=== PATIENT | male | born 1950 | race Two or more races ===

== ENCOUNTER 2024-05-27 09:12 | Outpatient (CLI) | payer MEDICARE, MEDICAID, SELFPAY ==
--- NOTE | ~2024-05-27 | MR_ITS ---
EXAMINATION: MR brain/brain stem wo con DATE: 05/27/2024 10:18 INDICATION: Cerebral infarction. TECHNIQUE: Magnetic resonance imaging (MRI) of the brain and brainstem was performed without intraven ous contrast. COMPARISON: None. FINDINGS: There are scattered areas of nonspecific increased T2-weighted signal intensity in the cere bral white matter, which is within normal limits for the patient's age. There is an old infarct invol ving the left frontal lobe and left insula. There is a 2.6 x 2.4 cm extra-axial mass at the right gaston e of the falx adjacent to the right parietal lobe, consistent with a meningioma. There is no acute is chemic infarct or intracranial hemorrhage. The ventricles are normal in size. The orbits are normal. There is mucosal thickening in the paranasal sinuses. The mastoid air cells are normal. IMPRESSION: 1. 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 2. 2.6 cm right parafalcine mass, consistent with a meningioma. Reviewed, dictated and finalized at location A. 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
--- OUTSIDE RECORDS SUMMARY | 2024-06-03 21:59 | XMS_ITS | Continuity of Care Document ---
Author Organization [place] - [facility], [facility] Internal Med [address] Address [address] [place] [address] Care Team Providers Care Branch Operations Coordinator Name Role Phone TARA OSBORN Finance Mgr GUANAKITO MACKENZIE Primary Care Provider ELENI SQUIRES Physical Design Engineer Assessment No assessment recorded. Plan of Treatment Reminders Order Date Submit Date Provider Last Modified By Organization Details Last Modified Time Details Appointments Any 15 2024 09:30A M Guanakito renteria MD Not available Not available Not available Lab unlisted lab - metanephr jelena frx plasma [address] (Lab), [address] [place], [address], 04/08/2024 12:47:19 metanephr jelena, fractiona autumn, quantitat redd, 24-hour urine [email or web address] (Lab), [address] [place], [address], 04/15/2024 16:04:00 Referral cardiolog ist referral 2023 024 [email or web address] Edwin Garcia MD, [address] [facility], [address], [place], [address], 04/12/2024 11:57:15 nephrolog ist referral - Please call patient to schedule. 11/2023 HUBER Davis MD (Nephrology, [address], [address], [place], [address], 04/22/2024 13:45:28 Procedures None recorded. Surgeries None recorded. Imaging MRI, brain, w/o contrast - Please call patient to schedule. [address], [address], [place], [address], 05/17/2024 09:13:24 Medication Orders None recorded. Patient TargetsNo targets recorded. Patient InstructionsNo instructions recorded. Reason for Referral Physical Design Engineer Referral for Es sential hypertension Referring Physician: Guanakito Mackenzie Internal Medicine, Encounter Date: 04/08/2024 Finishing Machine Operator Referral for Ph eochromocytoma Please call patient to schedule. Referring Physician: Guanakito Mackenzie Internal Medicine, Encounter Date: 04/08/2024 Results Created Date Observation Date Name Description Value Unit Range Abnormal Flag Note LastModifiedBy Organization Detail LastModifiedTime 05/27/20 24 05/27/2024 MRI, brain , w/o contr ast No observ ation record ed. [place] [id number] [facility] [address], [place], [address], 05/27/2024 11:49:38 Result Notes None recorded. 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 Active 2022 Not Available [facility] 3 13:39:01 Cerebrovas cular accident 351618422 Active 2022 Not Available [facility] 3 13:39:01 Visual impairment 021007277 Active 2022 Not Available [facility] 3 13:39:02 Total bilirubin above reference range 8174852639901 08 Active 2022 Not Available [facility] 3 13:39:01 Toothache 39675324 Active 2023 Guanakito lee MD [address], [address], [place], [address] , [facility] 4 11:22:28 Dizziness 138942131 Active 2023 SENTHIL Shanks null, [facility] 4 11:23:15 Acute urinary tract infection 556521514 Active 2023 Estefanía Morales MA null, [facility] 4 14:15:55 Chronic depression 987266939 Active 2023 Guanakito lee MD [address], [address], [place], [address] , [facility] 4 10:58:52 Essential hypertensi on 84923526 Active 2023 Guanakito lee MD [address], [place], [address] , [facility] 4 12:32:38 Pheochromo cytoma 316599061 Active 2023 Guanakito lee MD [address], [address], [place], [address] , [facility] 4 12:34:21 Problem Notes None recorded. Procedures Surgical History Date Name Laterality Status Provider Name and Address Organization Details Recorded Time Medicare Wellness CPT Code, subsequent completed Sameer Camacho LPN [facility] 11/07/2023 09:00:46 Advanced Care Planning completed Sameer Camacho LPN [facility] 11/11/2023 11:00:10 open heart surgery completed Not Available [facility] 07/31/2022 23:57:35 Imaging Results None recorded. Procedure Notes None recorded. Medical Equipment None Reported. Allergies No known drug allergies Medications Name Sig Start Date Stop Date Status Note LastModified by Organization Details LastModified Time atorvastatin 40 mg tablet TAKE 1 TABLET BY MOUTH EVERY DAY 2023 active Not Available Not Available Not Avai lable atorvastatin 80 mg tablet Take 1 tablet every day by oral route. 11/22 completed Not Available Not Available Not Available citalopram 10 mg tablet TAKE 1 TABLET BY MOUTH EVERY DAY active Not Available Not Available No t Available ciprofloxaci n 500 mg tablet TAKE 1 TABLET BY MOUTH EVERY 12 HOURS FOR 7 DAYS 03/09 completed Not Available Not Available Not Available ergocalcifer ol (vitamin D2) 1,250 mcg (50,000 unit) capsule TAKE 1 CAPSULE BY MOUTH WEEKLY FOR 8 WEEKS 12/10 completed Not Available Not Available Not Available amoxicillin 875 mg-potassium clavulanate 125 mg tablet TAKE 1 TABLET BY MOUTH EVERY 12 HOURS FOR 7 DAYS 11/10 completed Not Available Not Available Not Available cholecalcife rol (vitamin D3) 1,250 mcg (50,000 unit) capsule TAKE 1 CAPSULE BY MOUTH ONE TIME PER WEEK 2023 active Not Available Not Available Not Avai lable aspirin 325 mg capsule Take by oral route. 2020 active Not Available Not Available Not Avai lable Vitals Date Recorded Body height Body mass index (BMI) Body weight Heart rate Respiratory rate Oxygen saturation Oxygen saturation in Arterial blood by Pulse oximetry Systolic blood pressure Diastolic blood pressure Provider Name and Address Organization Details Last Updated DateTime 4 182.88 cm 29.8 kg/m2 44809.3 2 g 54 /min 16 /min 97 % 97 % 100 mm[Hg] 62 mm[Hg] Sameer Camacho LPN [place] - [facility] 4 12:22:42 Social History Question Answer Notes LastModified by Organization Details LastModified Time Tobacco Smoking Status Never Smoker Not Available [facility] 07/31/2022 23:57:12 Do You Have An Advance Directive? No MIGRATION.030 [id number] Information not available 07/31/2022 What Is Your Level Of Alcohol Consumption? None MIGRATION.030 472265 Information not available 07/31/2022 Do You Wear A Helmet When Biking? No Doews Not Bike Information not available 11/11/2023 Are You Blind Or Do You Have Difficulty Seeing? No MIGRATION.030 720141 Information not available 07/31/2022 What Is Your Level Of Caffeine Consumption? None MIGRATION.030 315192 Information not available 07/31/2022 In The 14 Days Before Symptom Onset, Have You Had Close Contact With A Laboratory-confi rmed COVID-19 While That Case Was Ill? No MIGRATION.030 909683 Information not available 07/31/2022 In The 14 Days Before Symptom Onset, Have You Had Close Contact With A Person Who Is Under Investigation For COVID-19 While That Person Was Ill? No MIGRATION.030 342292 Information not available 07/31/2022 Are You Currently Employed? No [email or web address] Information not available 11/11/2023 Are You Deaf Or Do You Have Serious Difficulty Hearing? No MIGRATION.030 524019 Information not available 07/31/2022 What Type Of Diet Are You Following? REGULAR MIGRATION.030 254593 Information not available 07/31/2022 What Is The Highest Grade Or Level Of School You Have Completed Or The Highest Degree You Have Received? PW85495-5 MIGRATION.300026 Information not available 07/31/2022 Have There Been Any Changes To Your Family Or Social Situation? No MIGRATION.030 015683 Information not available 07/31/2022 What Is The Fluoride Status Of Your Home? Unknown MIGRATION.030 666249 Information not available 07/31/2022 Are There Any Guns Present In Your Home? Yes MIGRATION.030 784421 Information not available 07/31/2022 Do You Use Insect Repellent Routinely? No MIGRATION.030 516922 Information not available 07/31/2022 Where Do You Live? SingleLevelHouse MIGRATION.030 551326 Information not available 07/31/2022 Presence Of Domestic Violence No [email or web address] Information not available 11/11/2023 Guns Present In The Home? No [email or web address] Information not available 11/11/2023 Are You Able To Care For Yourself? Yes [email or web address] Information not available 11/11/2023 Are You Blind Or Do Yo Have Difficulty Seeing? No [email or web address] Information not available 11/11/2023 Are You Deaf Or Do You Have Serious Difficulty Hearing? No [email or web address] Information not available 11/11/2023 General Stress Level? Moderate [email or web address] Information not available 11/11/2023 Live Alone Of With Others? With Others [email or web address] Information not available 11/11/2023 Do You Have A Medical Power Of Rehabilitator? No MIGRATION.0301 [id number] Information not available 07/31/2022 What Was The Date Of Your Most Recent Tobacco Screening? 03/09/2024 [email or web address] Information not available 03/09/2024 Do You Have Any Pets? Yes Cat, Dog Outside Information not available 11/11/2023 What Is Your Relationship Status? MIGRATION.0301 562101 Information not available 07/31/2022 Do You Use Your Seat Belt Or Car Seat Routinely? Yes MIGRATION.0301 803953 Information not available 07/31/2022 Do You Have Smoke And Carbon Monoxide Detectors In Your Home? Yes MIGRATION.0301 427140 Information not available 07/31/2022 Are You Passively Exposed To Smoke? No MIGRATION.0301 721260 Information not available 07/31/2022 Are There Any Smokers In Your House? No MIGRATION.0301 777794 Information not available 07/31/2022 What Types Of Sporting Activities Do You Participate In? None [email or web address] Information not available 11/11/2023 Do You Feel Stressed (tense, Restless, Nervous, Or Anxious, Or Unable To Sleep At Night)? [id number] [email or web address] Information not available 11/11/2023 Do You Use Any Illicit Or Recreational Drugs? No MIGRATION.0301 708221 Information not available 07/31/2022 Do You Use Sunscreen Routinely? No MIGRATION.0301 192653 Information not available 07/31/2022 Has Tobacco Cessation Counseling Been Provided? No N/a MIGRATION.0301 241754 Information not available 07/31/2022 Have You Recently Traveled Abroad? No MIGRATION.0301 827102 Information not available 07/31/2022 Do You Have Any Dietary Restrictions? No MIGRATION.0301 200831 Information not available 07/31/2022 Do You Or Have You Ever Used Any Other Forms Of Tobacco Or Nicotine? No MIGRATION.0301 425188 Information not available 07/31/2022 Sex: Male Functional Status Question Answer Note LastModified by Organizat [facility] Details LastModified Time Do you have difficulty walking or climbing stairs? No MIGRATION.4972240 026 Information not available 07/31/2022 Do you have transportation difficulties? No MIGRATION.5606926 026 Information not available 07/31/2022 Are you able to walk? YESWOREST MIGRATION.1918351 026 Information not available 07/31/2022 Do you have difficulty doing errands alone? No MIGRATION.7120376 026 Information not available 07/31/2022 Are you able to care for yourself? Yes MIGRATION.2070039 026 Information not available 07/31/2022 Do you have difficulty dressing or bathing? No MIGRATION.5786751 026 Information not available 07/31/2022 What is your exercise level? None MIGRATION.5022366 026 Information not available 07/31/2022 Mental Status Question Answer Note LastModified by Organizat [employer] Details LastModified Time Do you have difficulty concentrating, remembering or making decisions? No MIGRATION.[id number] 6 Information not available 07/31/2022 Family History Relationship Description Onset Age of this Age Resolved Age Notes LastModified by Organization Details LastModified Time Father No current problems or disability MIGRATION.773 [id number] Not available 07/31/2022 23:57:35 Mother No current problems or disability MIGRATION.070 0809189 Not available 07/31/2022 23:57:36 Medical History Condition Response NERVE DISEASE N BLINDNESS N RHEUMATIC FEVER N KIDNEY STONES N BLADDER PROBLEMS N MRSA N OTHER # 1 N POLIO N LUNG DISEASE/DISORDER N HISTORY OF DRUG ABUSE N RADIATION / CHEMOTHERAPY N COPD N Other # 2 N BLOOD DISEASES N EAR OR HEARING PROBLEMS N MUMPS N SHINGLES N DEPRESSION (INCLUDING POST ) N BOWEL PROBLEMS N STROKE/TIA Y ULCERS N BENIGN PROSTATIC HYPERPLASIA N MEASLES N HYPOTENSION N MYOCARDIAL INFARCTION N OBESITY N GERD/NAUSEA N ANEURYSM N URINARY/BLADDER/KIDNEY PROBLEMS N CORONARY ARTERY DISEASE (CAD) N ADDICTION CONCERNS N Impotence N ENDOMETRIOSIS N USE OF BLOOD THINNERS N SKIN PROBLEMS N GASTROINTESTINAL DISORDER N PERIPHERAL VASCULAR DISEASE N MUSCLE,JOINT OR BONE PROBLEMS N GASTROINTESTINAL BLEEDING N BLOOD CLOTS N ASTHMA N CATARACTS N ERECTILE DYSFUNCTION N VARICOSITIES N GI PROBLEMS N Low Testosterone N INFERTILITY N AIDS/HIV N CHEMOTHERAPY / RADIATION N LIVER DISEASE N MALE HYPOGONADISM N HYPERTENSION N Deficiency N TOURETTE'S N ANXIETY DISORDER N BLOOD TRANSFUSION N ANEMIA/BLOOD DISORDER N CHRONIC EAR INFECTIONS N BRONCHITIS N TUBERCULOSIS N GLAUCOMA N FOOT PROBLEM N DIVERTICULITIS N SLEEP APNEA N CHICKENPOX N INFECTIOUS DISEASE N PROSTATE N HEART ARRHYTHMIA N INSOMNIA N HIGH CHOLESTEROL / HYPERLIPIDEMIA N HYPERTHYROIDISM N EYE PROBLEMS N EDEMA N CHRONIC PAIN SYNDROME N HYPOTHYROIDISM N CONSTIPATION N CAROTID BLOCKAGE N BACK / NECK PROBLEMS N HAVE YOU BEEN HOSPITALIZED OR SEEN IN [facility] IN THE PAST YEAR ? N ATHEROSCLEROSIS N BREAST PROBLEMS N DIALYSIS N ECZEMA N OSTEOPOROSIS N ARTHRITIS N APPENDICITIS N DIABETES, TYPE N BAD TEETH N ENT N HEARTBURN / REFLUX N AUTISM SPECTRUM DISORDER (ASD) N HEPATITIS / LIVER DISEASE N GOUT N SLEEP DISORDER N ALZHEIMER'S DISEASE N Brain Problems N HERPES N DEMENTIA N SEIZURES/EPILEPSY N HEADACHES/MIGRAINES N VASCULAR DISEASE N PACEMAKER N Blood Disorder N DIZZINESS N KIDNEY DISEASE N HEART DISEASE/HEART PROBLEMS Y MULTIPLE SCLEROSIS N CARDIAC ARRHYTHMIA N CANCER: SPECIFY N Gall Stones N ATRIAL FIBRILLATION N PULMONARY EMBOLISM N AUTOIMMUNE DISEASE N Immunizations Vaccine Type Date Status Note Provider Nam e and Address Organization Details Recorded Time Influenza, high-dose, quadrivalent, PF 03/21/2022 completed Not Available [facility] 00:[facility]:06 Influenza, high-dose, quadrivalent, PF 03/18/2023 completed SENTHIL Negron [facility] 05/13/2023 10:34:51 Influenza, high-dose, trivalent, PF 03/09/2024 completed SENTHIL Negron [facility] 03/09/2024 10:53:30 Past Encounters Encounter ID Performer Location Encounter Start Date Encounter Closed Date Diagnosis/Indication Diagnosis SNOMED-CT Code Diagnosis ICD10 Code [id number] Guanakito lee MD [facility] [address] [facility], [address] [place] [address] 03/09/2024 10:13:25 03/09/2024 10:58:03 Hyperlipidemia 52769480 E78.5 Screening - NAD 10080177 3 Z13.9 Vitamin D deficiency 347 10828 E55.9 Vertigo 547066835 R42 Dyspnea on exertion 6084 5006 R06.09 Intracrani al meningioma 378923302 D32.0 Cerebrovas cular accident 584018385 I63.9 History of repair of mitral valve 213322484 Z98.890 Visual impairment 380488 003 H54.7 Total bili schmitz above reference range 1649647665 52555 R17 Administra tion of influenza vaccine 80604694 Z23 Chronic depression 43601 0009 F32.A [id number] Guanakito lee MD [facility] [address] [facility], [facility] [address] [place] [address] 04/08/2024 12:19:23 04/08/2024 12:50:53 Essential hypertension 64580982 I10 Vertigo 243658452 R42 Cerebrovas cular accident 472557116 I63.9 Pheochromocytoma 5258413 09 D35.00 Health Concerns Section Related Observation LastModified by Organization Detai ls LastModified Time None Recorded Concern Status LastModified by Organization Details LastModified Time None Recorded Payers Encounter Date Sequence Insurance Name Policy Number Policy Hinton Covered Member ID Hinton Member ID Guarantor Name 04/08/2024 1 [facility] (MEDICARE REPLACEMENT/A DVANTAGE - PPO) [id number] Nirav Kearns [id number] Nirav Kearns Notes Date Note Type Note Provider Name and Address Organization Details Recorded Time 04/08/2024 text/html OV 03/13/2021:He re to establish [facility] Hx:HLDCVAMVRMening iomaReviewed social family and surgical historyHe is here to discuss aboveHe does need to get labsHe feels well otherwise 06/21/2021:Here for his routine aptHe is doing well OV 11/22/2021:Here for his routine aptHe is doing wellHe did do the labs OV 01/31/2022:Here for his f/u apt with his , he is doing well, he did the labs on 01/25/2022 OV 07/30/2022:Here for his f/u apt, he is doing well, here with his , no new labs, here for MWV also OV 12/10/2022: Here for his f/u apt, he states that he is doing very well today, he has done his labs also, he states that he is doing very well, is very active and 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 OV 05/13/2023: Here for his routine apt, he is doing well, he did do the labs OV 11/11/2023: Here for his f/u apt, he is doing well, here for his MWV, he did do the labs on 11/07/2023 OV 03/09/2024: Here for his f/u apt, does very well, here with his and daughter, he did do the labs, as per daughter he does need to see his neurologist and also wants him to restart the citalopram OV 04/08/2024: Here with his daughter for his BP check, as per the daughter her father has been more dizzy, she is worrying about his 'adrenals' and if he has 'pheochromocytoma' as she is a nurse and has read about itHe has denied any headaches, but has complained to his daughter that he can get dizzy and get palpitations, he denies any excessive sweating, no chest pain or SOB, no CHNA Guanakito Mackenzie MD [address] [place] [address], [address] [address], [place], [address], [facility] 04/14/2024 15:53:55
--- OUTSIDE RECORDS SUMMARY | 2024-06-03 21:59 | XMS_ITS | Continuity of Care Document ---
Author Organization [place] - [facility], [facility]_G Internal Med [address] [facility] [place] [address] Care Team Providers Care Member Of The Legislative Council Name Role Phone TARA OSBORN Cable Driller GUANAKITO MACKENZIE Primary Care Provider FRANCISCO PIZARRO Build Manager Assessment Encounter Date Assessment Date Assessment LastModified by Organization Details LastModified Time 03/09/2024 03/09/2024 01/25/2022: PSA 0.52 TSH/FT4/LIPID S/CBC: WNL VIT D 41.8 CMP: Bili T 1.40 11/25/2022: Labs stable 05/09/2023: PSA 0.55 VIT D 26.0 11/07/2023: PSA 0.57 BUN 21 03/08/2024: Stable 45 minutes spent with him his and his daughter, labs reviewed, referral placed, discussed his depression Not available 03/09/2024 11:09:03 Plan of Treatment Reminders Order Date Submit Date Provider Last Modified By Organization Details Last Modified Time Details Appointments Any 15 2024 09:30A M Guanakito renteria MD Not available Not available Not available Lab lipid panel, serum 2023 024 [facility] (Lab), [address] [place], [address], 03/09/2024 17:08:36 CBC w/ auto diff 2023 024 [facility] (Lab), [address] [place], [address], 03/09/2024 17:08:38 CMP, serum or plasma 2023 [facility] (Lab), [address] [place], [address], 03/09/2024 17:08:37 TSH, serum or plasma 2023 [facility] (Lab), [address] [place], [address], 03/09/2024 17:08:39 vitamin D, 25-hydrox y, total, serum 2023 [facility] (Lab), [address] [place], [address], 03/09/2024 13:07:07 Referral cardiolog ist referral 2023 [email or web address] [place], [address] Michelle , [address], [address], 03/10/2024 08:40:[address] referral - Please call patient to schedule. 2023 [email or web address] [facility] - Neurology, [facility] [place], [address], 05/10/2024 12:23:19 Procedures None recorded. Surgeries None recorded. Imaging None recorded. Medication Orders citalopra m 10 mg tablet 2023 [facility] [address] [facility] [address] [place], [address], 03/09/2024 11:00:44 Patient TargetsNo targets recorded. Patient InstructionsNo instructions recorded. Reason for Referral Build Manager Referral for Hi story of repair of mitral valve Referring Physician: Guanakito Mackenzie, Internal Medicine, Encounter Date: 03/09/2024 Neurologist Referral for Cer ebrovascular accident Please call patient to schedule. Referring Physician: Guanakito Mackenzie, Internal Medicine, Encounter Date: 03/09/2024 Results Created Date Observation Date Name Description Value Unit Range Abnormal Flag Note LastModifiedBy Organization Detail LastModifiedTime 05/27/20 24 05/27/2024 MRI, brain , w/o contr ast No observ ation record ed. [facility] [address] [facility] [address], [place], [address], 05/27/2024 11:49:38 Result Notes None recorded. Problems Name Problem SNOMED Code Status Onset Date Resolution Date Notes Provider Name and Address Organization Details Recorded Time Hyperlipid emia 86803973 Active 2021 Not Available [facility] 3 13:39:02 Dyspnea on exertion 65575204 Active 2021 Not Available [facility] 3 13:39:02 Vitamin D deficiency 23858989 Active 2022 Not Available [facility] 3 13:39:01 Vertigo 174663637 Active 2022 Not Available 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 3 13:39:01 Cerebrovas cular accident 871077917 Active 2022 Not Available [facility] 3 13:39:01 Visual impairment 894331163 Active 2022 Not Available [facility] 3 13:39:02 Total bilirubin above reference range 4323070878780 08 Active 2022 Not Available [facility] 3 13:39:01 Toothache 06969732 Active 2023 Guanakito lee MD [address] [place] [address], [facility] [address], [place], [address] , [facility] [employer] 4 11:22:28 Dizziness 244227576 Active 2023 SENTHIL Shanks [facility], [facility] [employer] 4 11:23:15 Acute urinary tract infection 148097580 Active 2023 Estefanía Morales MA null, [facility] [employer] [facility] 4 14:15:55 Chronic depression 404473838 Active 2023 Guanakito lee MD [address] [facility], [address] [facility], [place], [address] , [facility] [employer] [facility] 4 10:58:52 Essential hypertensi on 53123135 Active 2023 Guanakito lee MD [address] [facility], [address], [place], [address] , [facility] [employer] [facility] [employer] [facility] 4 12:32:38 Pheochromo cytoma 344176420 Active 2023 Guanakito lee MD [address] [facility], [place] [address], [place], [address] , [facility] [employer] [facility] [employer] [facility] 4 12:34:21 Problem Notes None recorded. Procedures Surgical History Date Name Laterality Status Provider Name and Address Organization Details Recorded Time 4 Medicare Wellness CPT Code, subsequent completed Sameer Camacho LPN [facility] [employer] [facility] 11/07/2023 09:00:46 4 Advanced Care Planning completed Sameer Camacho LPN [facility] [employer] [facility] 11/11/2023 11:00:10 open heart surgery completed Not Available [facility] 07/31/2022 23:57:35 Imaging Results None recorded. Procedure [...] height Body mass index (BMI) Body weight Body temperature Heart rate Systolic blood pressure Diastolic blood pressure Provider Name and Address Organization Details Last Updated DateTime 4 182.88 cm 30.8 kg/m2 985144. 47 g 97.4 [degF] 60 /min 106 mm[Hg] 70 mm[Hg] SENTHIL Negron [place] [employer] 4 10:26:31 Social History Question Answer Notes LastModified by Organization Details LastModified Time Tobacco Smoking Status Never Smoker Not Available [facility] 07/31/2022 23:57:12 Do You Have An Advance Directive? No MIGRATION.0301 [id number] Information not available 07/31/2022 What Is Your Level Of Alcohol Consumption? None MIGRATION.0301 645103 Information not available 07/31/2022 Do You Wear A Helmet When Biking? No Doews Not Bike [email or web address] Information not available 11/11/2023 Are You Blind Or Do You Have Difficulty Seeing? No MIGRATION.0301 [id number] Information not available 07/31/2022 What Is Your Level Of Caffeine Consumption? None MIGRATION.0301 482486 Information not available 07/31/2022 In The 14 Days Before Symptom Onset, Have You Had Close Contact With A Laboratory-confi rmed COVID-19 While That Case Was Ill? No MIGRATION.0301 249621 Information not available 07/31/2022 In The 14 Days Before Symptom Onset, Have You Had Close Contact With A Person Who Is Under Investigation For COVID-19 While That Person Was Ill? No MIGRATION.030 929856 Information not available 07/31/2022 Are You Currently Employed? No [email or web address] Information not available 11/11/2023 Are You Deaf Or Do You Have Serious Difficulty Hearing? No MIGRATION.030 903179 Information not available 07/31/2022 What Type Of Diet Are You Following? REGULAR MIGRATION.300026 Information not available 07/31/2022 What Is The Highest Grade Or Level Of School You Have Completed Or The Highest Degree You Have Received? [id number] MIGRATION.300026 Information not available 07/31/2022 Have There Been Any Changes To Your Family Or Social Situation? No MIGRATION.030 622619 Information not available 07/31/2022 What Is The Fluoride Status Of Your Home? Unknown MIGRATION.300026 Information not available 07/31/2022 Are There Any Guns Present In Your Home? Yes MIGRATION.300026 Information not available 07/31/2022 Do You Use Insect Repellent Routinely? No MIGRATION.030 010820 Information not available 07/31/2022 Where Do You Live? SingleLevelHouse MIGRATION.300026 Information not available 07/31/2022 Presence Of Domestic Violence No Information not available 11/11/2023 Guns Present In The Home? No [email or web address] Information not available 11/11/2023 Are You Able To Care For Yourself? Yes Information not available 11/11/2023 Are You Blind Or Do Yo Have Difficulty Seeing? No Information not available 11/11/2023 Are You Deaf Or Do You Have Serious Difficulty Hearing? No [email or web address] Information not available 11/11/2023 General Stress Level? Moderate Information not available 11/11/2023 Live Alone Of With Others? With Others Information not available 11/11/2023 Do You Have A Medical Power Of High Density Finishing Operator? No MIGRATION.030 902360 Information not available 07/31/2022 What Was The Date Of Your Most Recent Tobacco Screening? 03/09/2024 [email or web address] Information not available 03/09/2024 Do You Have Any Pets? Yes Cat, Dog Outside [email or web address] Information not available 11/11/2023 What Is Your Relationship Status? MIGRATION.0301 [id number] Information not available 07/31/2022 Do You Use Your Seat Belt Or Car Seat Routinely? Yes MIGRATION.0301 123708 Information not available 07/31/2022 Do You Have Smoke And Carbon Monoxide Detectors In Your Home? Yes MIGRATION.0301 367870 Information not available 07/31/2022 Are You Passively Exposed To Smoke? No MIGRATION.0301 028273 Information not available 07/31/2022 Are There Any Smokers In Your House? No MIGRATION.0301 570024 Information not available 07/31/2022 What Types Of Sporting Activities Do You Participate In? None Information not available 11/11/2023 Do You Feel Stressed (tense, Restless, Nervous, Or Anxious, Or Unable To Sleep At Night)? [id number] [email or web address] Information not available 11/11/2023 Do You Use Any Illicit Or Recreational Drugs? No MIGRATION.0301 826549 Information not available 07/31/2022 Do You Use Sunscreen Routinely? No MIGRATION.0301 596227 Information not available 07/31/2022 Has Tobacco Cessation Counseling Been Provided? No N/a MIGRATION.0301 728207 Information not available 07/31/2022 Have You Recently Traveled Abroad? No MIGRATION.0301 567435 Information not available 07/31/2022 Do You Have Any Dietary Restrictions? No MIGRATION.0301 256540 Information not available 07/31/2022 Do You Or Have You Ever Used Any Other Forms Of Tobacco Or Nicotine? No MIGRATION.0301 842530 Information not available 07/31/2022 Sex: Male Functional Status Question Answer Note LastModified by Organizat ion Details LastModified Time Do you have difficulty walking or climbing stairs? No MIGRATION.5818069 026 Information not available 07/31/2022 Do you have transportation difficulties? No MIGRATION.1190417 026 Information not available 07/31/2022 Are you able to walk? YESWOREST MIGRATION.9252369 026 Information not available 07/31/2022 Do you have difficulty doing errands alone? No MIGRATION.5347210 026 Information not available 07/31/2022 Are you able to care for yourself? Yes MIGRATION.0538112 026 Information not available 07/31/2022 Do you have difficulty dressing or bathing? No MIGRATION.7487896 026 Information not available 07/31/2022 What is your exercise level? None MIGRATION.2812389 026 Information not available 07/31/2022 Mental Status Question Answer Note LastModified by Organizat ion Details LastModified Time Do you have difficulty concentrating, remembering or making decisions? No MIGRATION.836011030 6 Information not available 07/31/2022 Family History Relationship Description Onset Age of this Age Resolved Age Notes LastModified by Organization Details LastModified Time Father No current problems or disability MIGRATION.980 [id number] Not available 07/31/2022 23:57:35 Mother No current problems or disability MIGRATION.988 [id number] Not available 07/31/2022 23:57:36 Medical History Condition Response NERVE DISEASE N BLINDNESS N RHEUMATIC FEVER N KIDNEY STONES N BLADDER PROBLEMS N MRSA N OTHER # 1 N POLIO N LUNG DISEASE/DISORDER N HISTORY OF DRUG ABUSE N COPD N RADIATION / CHEMOTHERAPY N Other # 2 N BLOOD DISEASES N EAR OR HEARING PROBLEMS N MUMPS N SHINGLES N BOWEL PROBLEMS N DEPRESSION (INCLUDING POST ) N STROKE/TIA Y ULCERS N BENIGN PROSTATIC HYPERPLASIA N MEASLES N HYPOTENSION N MYOCARDIAL INFARCTION N OBESITY N GERD/NAUSEA N ANEURYSM N URINARY/BLADDER/KIDNEY PROBLEMS N CORONARY ARTERY DISEASE (CAD) N ADDICTION CONCERNS N ENDOMETRIOSIS N Impotence N USE OF BLOOD THINNERS N SKIN [...] GLAUCOMA N FOOT PROBLEM N DIVERTICULITIS N CHICKENPOX N SLEEP APNEA N INFECTIOUS DISEASE N HEART ARRHYTHMIA N PROSTATE N INSOMNIA N HIGH CHOLESTEROL / HYPERLIPIDEMIA N HYPERTHYROIDISM N EYE PROBLEMS N EDEMA N CHRONIC PAIN SYNDROME N HYPOTHYROIDISM N CAROTID BLOCKAGE N CONSTIPATION N BACK / NECK PROBLEMS N HAVE YOU BEEN HOSPITALIZED OR SEEN IN [facility] IN THE PAST YEAR ? N ATHEROSCLEROSIS N BREAST PROBLEMS N DIALYSIS N ECZEMA N OSTEOPOROSIS N ARTHRITIS N APPENDICITIS N DIABETES, TYPE N BAD TEETH N ENT N HEARTBURN / REFLUX N AUTISM SPECTRUM DISORDER (ASD) N HEPATITIS / LIVER DISEASE N GOUT N SLEEP DISORDER N ALZHEIMER'S DISEASE N Brain Problems N HERPES N DEMENTIA N HEADACHES/MIGRAINES N SEIZURES/EPILEPSY N VASCULAR DISEASE N PACEMAKER N Blood Disorder N DIZZINESS N HEART DISEASE/HEART PROBLEMS Y KIDNEY DISEASE N MULTIPLE SCLEROSIS N CARDIAC ARRHYTHMIA N CANCER: SPECIFY N ATRIAL FIBRILLATION N Gall Stones N PULMONARY EMBOLISM N AUTOIMMUNE DISEASE N Immunizations Vaccine Type Date Status Note Provider Nam e and Address Organization Details Recorded Time Influenza, high-dose, quadrivalent, PF 03/21/2022 completed Not Available [employer] 3 00:00:06 Influenza, high-dose, quadrivalent, PF 03/18/2023 completed SENTHIL Negron, [place] - [facility] [employer] [facility] 05/13/2023 10:34:51 Influenza, high-dose, trivalent, PF 03/09/2024 completed SENTHIL Negron, [facility] [employer] [facility] 03/09/2024 10:53:30 Past Encounters Encounter ID Performer Location Encounter Start Date Encounter Closed Date Diagnosis/Indication Diagnosis SNOMED-CT Code Diagnosis ICD10 Code [id number] Guanakito lee MD [facility] Internal Med [facility] [address] [facility], [facility] [address] [place] [address] 03/09/2024 10:13:25 03/09/2024 10:58:03 Hyperlipidemia 74208769 E78.5 Screening - NAD 52457451 3 Z13.9 Vitamin D deficiency 347 30590 E55.9 Vertigo 726054319 R42 Dyspnea on exertion 6084 5006 R06.09 Intracrani al meningioma 908822385 D32.0 Cerebrovas cular accident 573996098 I63.9 History of repair of mitral valve 378895002 Z98.890 Visual impairment 806032 003 H54.7 Total bili schmitz above reference range 2315908908 21648 R17 Administra tion of influenza vaccine 79509255 Z23 Chronic depression 28904 0009 F32.A Health Concerns Section Related Observation LastModified by Organization Detai ls LastModified Time None Recorded Concern Status LastModified by Organization Details LastModified Time None Recorded Payers Encounter Date Sequence Insurance Name Policy Number Policy [place] Covered Member ID [place] Member ID Guarantor Name 03/09/2024 1 [facility] (MEDICARE REPLACEMENT/A DVANTAGE - PPO) [id number] Nirav Kearns [id number] Nirav Alvaradoev Notes Date Note Type Note Provider Name and Address Organization Details Recorded Time 03/09/2024 text/html OV 03/13/2021:He re to establish carePast Hx:HLDCVAMVRMening St[place]ed social family and surgical historyHe is here [...] also wants him to restart the citalopram Guanakito Mackenzie MD [address] [facility], [address], [place], [address], [place] [facility] [employer] [employer] 03/09/2024 11:10:10
--- OUTSIDE RECORDS SUMMARY | 2024-06-03 21:59 | XMS_ITS | Data Portability ---
Author Organization [place] [facility] [employer] [facility], Main Office Address [address] [place] [address] Care Team Providers [place] Demonstrator Name Role Phone TARA OSBORN [employer] GUANAKITO WARE Primary Care Provider ELENI PIZARRO Agricultural Research Director Assessment Encounter Date Assessment Date Assessment LastModified by Organization Details LastModified Time 12/10/2022 12/10/2022 01/25/2022: PSA 0.52 TSH/FT4/LIPID S/CBC: WNL VIT D 41.8 CMP: Bili T 1.40 11/25/2022: Labs stable Not available 12/09/2022 15:09:07 05/13/2023 05/13/2023 01/25/2022: PSA 0.52 TSH/FT4/LIPID S/CBC: WNL VIT D 41.8 CMP: Bili T 1.40 11/25/2022: Labs stable 05/09/2023: PSA 0.55 VIT D 26.0 Not available 05/13/2023 10:26:40 11/11/2023 11/11/2023 01/25/2022: PSA 0.52 TSH/FT4/LIPID S/CBC: WNL VIT D 41.8 CMP: Bili T 1.40 11/25/2022: Labs stable 05/09/2023: PSA 0.55 VIT D 26.0 11/07/2023: PSA 0.57 BUN 21 Not available 11/11/2023 10:16:07 03/09/2024 03/09/2024 01/25/2022: PSA 0.52 TSH/FT4/LIPID S/CBC: WNL VIT D 41.8 CMP: Bili T 1.40 11/25/2022: Labs stable 05/09/2023: PSA 0.55 VIT D 26.0 11/07/2023: PSA 0.57 BUN 21 03/08/2024: Stable 45 minutes spent with him his and his daughter, labs reviewed, referral placed, discussed his depression [email or web address] Not available 03/09/2024 11:09:03 Plan of Treatment Reminders Order Date Submit Date Provider Last Modified By Organization Details Last Modified Time Details Appointments Any 15 2024 09:30A M Guanakito renteria MD Not available Not available Not available Lab PSA, total, serum or plasma 2022 023 [facility] (Lab), [address] [place], [address], 05/09/2023 12:42:21 vitamin D, 25-hydrox y, total, serum [email or web address] (Lab), [address] [place], [address], 06/11/2023 17:47:15 lipid panel, serum 2022 023 [facility] (Lab), [address] [place], [address], 05/09/2023 11:53:35 CBC w/ auto diff 2022 023 [facility] (Lab), [address] [place], [address], 05/09/2023 11:21:40 CMP, serum or plasma 2022 023 [facility] (Lab), [address] [place], [address], 05/09/2023 11:53:43 TSH, serum or plasma 2022 023 [facility] (Lab), [address] [place], [address], 05/09/2023 12:42:08 vitamin D, 25-hydrox y, total, serum [address] (Lab), [address] [place], [address], 11/12/2023 08:38:17 lipid panel, serum 2022 023 [facility] (Lab), [address] [place], [address], 11/07/2023 10:53:46 CBC w/ auto diff 2022 023 [facility] (Lab), [address] [place], [address], 11/07/2023 10:07:10 CMP, serum or plasma 2022 023 [facility] (Lab), [address] [place], [address], 11/07/2023 10:53:50 TSH, serum or plasma 2022 023 [facility] (Lab), [address] [place], [address], 11/07/2023 11:32:24 vitamin D, 25-hydrox y, total, serum [address] (Lab), [address] [place], [address], 05/10/2024 09:53:36 lipid panel, serum [address] (Lab), [address] [place], [address], 05/10/2024 09:53:36 CBC w/ auto diff [address] (Lab), [address] [place], [address], 05/10/2024 09:53:36 CMP, serum or plasma [address] (Lab), [address] [place], [address], 05/10/2024 09:53:36 TSH, serum or plasma [address] (Lab), [address] [place], [address], 05/10/2024 09:53:36 lipid panel, serum 2023 024 [facility] (Lab), [address] [place], [address], 03/09/2024 17:08:36 CBC w/ auto diff 2023 024 [facility] (Lab), [address] [place], [address], 03/09/2024 17:08:38 CMP, serum or plasma 2023 024 [facility] (Lab), [address] [place], [address], 03/09/2024 17:08:37 TSH, serum or plasma 2023 024 [facility] (Lab), [address] [place], [address], 03/09/2024 17:08:39 vitamin D, 25-hydrox y, total, serum 2023 024 [facility] (Lab), [address] [place], [address], 03/09/2024 13:07:07 unlisted lab - metanephr jelena frx plasma [address] (Lab), [address] [place], [address], 04/08/2024 12:47:19 metanephr jelena, fractiona marcus, quantitat lenore, 24-hour urine 2023 024 [email or web address] [facility] (Lab), [address] [place], [address], 04/15/2024 16:04:00 Referral cardiolog ist referral 2022 023 [email or web address] [place], [address], [address], [place], [address], 01/21/2023 14:18:53 cardiolog ist referral 2022 023 [email or web address] [place], [address], [address], [place], [address], 12/10/2023 08:55:22 cardiolog ist referral 2023 024 [email or web address] [place], [address], [address], [place], [address], 05/10/2024 12:23:08 cardiolog ist referral 2023 024 [place], [address], [address], [place], [address], 03/10/2024 08:40:[address] referral - Please call patient to schedule. 2023 024 [email or web address] [facility] - Neurology, [address] [place] [address], [address], 05/10/2024 12:23:19 cardiolog ist referral 2023 024 [email or web address] Edwin Garcia MD, [address] [facility], [address], [place], [address], 04/12/2024 11:57:15 nephrolog ist referral - Please call patient to schedule. 2023 024 HUBER Davis MD (Nephrology, [address], [address], [place], [address], 04/22/2024 13:45:28 Procedures None recorded. Surgeries None recorded. Imaging MRI, brain, w/o contrast - Please call patient to schedule. 2023 024 [facility], [address], [place], [address], 05/17/2024 09:13:24 Medication Orders cholecalc iferol (vitamin D3) 1,250 mcg (50,000 unit) capsule 2022 023 [facility] [id number] [facility], [address] [place], [address], 05/13/2023 10:35:27 citalopra m 10 mg tablet 2023 024 [facility] [address] [facility], [address] [place], [address], 03/09/2024 11:00:44 Patient TargetsNo targets recorded. Patient Instructions Encounter Date Encounter Id Patient Instructions Last Modified By Organization Details Last Modified Time 11/11/2023 [id number] dementia rating scale-2* [email or web address] 2 Not available 11/11/2023 11:14:00 depression screening* [email or web address] Not available 11/11/2023 11:13:59 alcohol misuse* [email or web address] 2 Not available 11/11/2023 11:13:58 multi-dimensiona l health assessment questionnaire* [email or web address] 2 Not available 11/11/2023 11:14:02 advance directiv es: care instructions [email or web address] Not available 11/11/2023 11:13:56 [place] Advance Directives [email or web address] Not available 11/11/2023 11:13:56 advance care planning: care instructions [email or web address] Not available 11/11/2023 11:13:56 Personalized Hea lth Plan and Screening Recommendations Advance Directives - Do you have one? Advance Directives - Do we have your advance directive on file in your health record? Primary Prevention/Interven tion (prevents or decreases the chance of common diseases from occurring) Smoking Risk: Alcohol Misuse Screening: Weight: Physical activity: Nutrition: Fall Risk (screened today): Vaccines Pneumococcal: Influenza: Chronic Disease Risks Stroke: I have no recommendations Active diagnosis, Continue current treatment plan Heart Attack: I have no recommendations Act lenore diagnosis, Continue current treatment plan Clogging of the Arteries: I have no recommendations Act lenore diagnosis, Continue current treatment plan Diabetes: Secondary Prevention/Interven tion (detects treatable diseases before they may cause symptoms, disability, or ) Prostate Cancer Screening: Colon Cancer Screening: Date Screening Last Performed: Eye Disease Screening: Dementia Risk: Depression Screening: [email or web address] Not available 11/07/2023 09:00:34 Reason for Referral Agricultural Research Director Referral for Hi story of repair of mitral valve Referring Physician: Lee Ann Mai Medicine, Encounter Date: 12/10/2022 Agricultural Research Director Referral for Hi story of repair of mitral valve Referring Physician: Lee Ann Mai, Encounter Date: 05/13/2023 Agricultural Research Director Referral for Hi story of repair of mitral valve Referring Physician: Lee Ann Mai, Encounter Date: 11/11/2023 Agricultural Research Director Referral for Hi story of repair of mitral valve Referring Physician: Lee Ann Mai, Encounter Date: 03/09/2024 Neurologist Referral for Cer ebrovascular accident Please call patient to schedule. 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 Referring Physician: Guanakito Ware, Internal Medicine, Encounter Date: 04/08/2024 Results Created Date Observation Date Name Description Value Unit Range Abnormal Flag Note LastModifiedBy Organization Detail LastModifiedTime 11/26/19 23 11/25/2022 CBC/C OMPLE TE BLD COUNT W/DIF F white blood cells 6.0 x10'3 /uL 4.2-10 .8 Not Available [facility] (Lab) [address] [place], [address], 11/25/2022 08:39:58 11/26/19 23 11/25/2022 CBC/C OMPLE TE BLD COUNT W/DIF F red blood cells 5.01 x10'6 /uL 4.10-5 .80 Not Available [facility] (Lab) [address] [place], [address], 11/25/2022 08:39:58 11/26/19 23 11/25/2022 CBC/C OMPLE TE BLD COUNT W/DIF F hemoglobin 14.6 g/dL 13.2-1 7.0 Not Available [facility] (Lab) [address] [place], [address], 11/25/2022 08:39:58 11/26/19 23 11/25/2022 CBC/C OMPLE TE BLD COUNT W/DIF F hematocrit 45.0 % 39.3-5 0.0 Not Available [facility] (Lab) [address] [place], [address], 11/25/2022 08:39:58 11/26/19 23 11/25/2022 CBC/C OMPLE TE BLD COUNT W/DIF F mean red cell volume 89.8 fL 80.0-9 7.0 Not Available [facility] (Lab) [address] [place], [address], 11/25/2022 08:39:58 11/26/19 23 11/25/2022 CBC/C OMPLE TE BLD COUNT W/DIF F mean red cell hemoglobin 29.1 pg 27.0-3 3.0 Not Available [facility] (Lab) [address] [place], [address], 11/25/2022 08:39:58 11/26/19 23 11/25/2022 CBC/C OMPLE TE BLD COUNT W/DIF F mean RBC HGB concentratio n 32.4 g/dL 31.0-3 6.0 Not Available [facility] (Lab) [address] [place], [address], 11/25/2022 08:39:58 11/26/19 23 11/25/2022 CBC/C OMPLE TE BLD COUNT W/DIF F red cell distribution width 13.0 % 11.8-1 5.5 Not Available [facility] (Lab) [address] [place], [address], 11/25/2022 08:39:58 11/26/19 23 11/25/2022 CBC/C OMPLE TE BLD COUNT W/DIF F platelets 212 x10'3 /uL 150-40 0 Not Available [facility] (Lab) [address] [place], [address], 11/25/2022 08:39:58 11/26/19 23 11/25/2022 CBC/C OMPLE TE BLD COUNT W/DIF F mean platelet volume 10.3 fL 9.0-12 .4 Not Available [facility] (Lab) [address] [place], [address], 11/25/2022 08:39:58 11/26/19 23 11/25/2022 CBC/C OMPLE TE BLD COUNT W/DIF F neutrophils 50.1 % 39.0-7 2.0 Not Available [facility] (Lab) [address] [place], [address], 11/25/2022 08:39:58 11/26/19 23 11/25/2022 CBC/C OMPLE TE BLD COUNT W/DIF F lymphocytes 32.1 % 16.0-4 7.0 Not Available [facility] (Lab) [address] [place], [address], 11/25/2022 08:39:58 11/26/1911/25/2022 CBC/C OMPLE TE BLD COUNT W/DIF F monocytes 13.3 % 5.0-12 .0 high Not Available [facility] (Lab) [address] [place], [address], 11/25/2022 08:39:58 11/26/1911/25/2022 CBC/C OMPLE TE BLD COUNT W/DIF F eosinophils 3.8 % 1.0-7. 0 Not Available [facility] (Lab) [address] [place], [address], 11/25/2022 08:39:58 11/26/1911/25/2022 CBC/C OMPLE TE BLD COUNT W/DIF F basophils 0.5 % 0.0-2. 0 Not Available [facility] (Lab) [address] [place], [address], 11/25/2022 08:39:58 11/26/1911/25/2022 CBC/C OMPLE TE BLD COUNT W/DIF F immature granulocytes 0.2 % 0.00-0 .50 Not Available [facility] (Lab) [address] [place], [address], 11/25/2022 08:39:58 11/26/19 23 11/25/2022 CBC/C OMPLE TE BLD COUNT W/DIF F neutrophils, absolute count 3.02 x10'3 /uL 1.5-8. 0 Not Available [facility] (Lab) [address] [place], [address], 11/25/2022 08:39:58 11/26/19 23 11/25/2022 CBC/C OMPLE TE BLD COUNT W/DIF F lymphocytes, absolute count 1.93 x10'3 /uL 1.07-3 .43 Not Available [facility] (Lab) [address] [place], [address], 11/25/2022 08:39:58 11/26/1911/25/2022 CBC/C OMPLE TE BLD COUNT W/DIF F monocytes, absolute count 0.80 x10'3 /uL 0.29-0 .99 Not Available [facility] (Lab) [address] [place], [address], 11/25/2022 08:39:58 11/26/19 23 11/25/2022 CBC/C OMPLE TE BLD COUNT W/DIF F eosinophils, absolute count 0.23 x10'3 /uL 0.02-0 .53 Not Available [facility] (Lab) [address] [place], [address], 11/25/2022 08:39:58 11/26/1911/25/2022 CBC/C OMPLE TE BLD COUNT W/DIF F basophils, absolute count 0.03 x10'3 /uL 0.01-0 .08 Not Available [facility] (Lab) [address] [place], [address], 11/25/2022 08:39:58 11/26/1911/25/2022 CBC/C OMPLE TE BLD COUNT W/DIF F immature granulocytes ,absolute 0.01 x10'3 /uL 0.00-0 .05 Not Available [facility] (Lab) [address] [place], [address], 11/25/2022 08:39:58 11/26/19 23 11/25/2022 CBC/C OMPLE TE BLD COUNT W/DIF F nucleated red blood cells 0.0 % -0 Not Available [facility] (Lab) [address] [place], [address], 11/25/2022 08:39:58 11/26/19 23 11/25/2022 CBC/C OMPLE TE BLD COUNT W/DIF F NRBC# 0.00 x10'3 /uL Not Available [facility] (Lab) [address] [place], [address], 11/25/2022 08:39:58 11/26/19 23 11/25/2022 COMPR EHENS LENORE METAB OLIC PANEL sodium 141 mmol/ L 137-14 5 Not Available [facility] (Lab) [address] [place], [address], 11/25/2022 09:20:11 11/26/19 23 11/25/2022 COMPR EHENS LENORE METAB OLIC PANEL potassium 4.7 mmol/ L 3.5-5. 1 Not Available [facility] (Lab) [address] [place], [address], 11/25/2022 09:20:11 11/26/19 23 11/25/2022 COMPR EHENS LENORE METAB OLIC PANEL chloride 103 mmol/ L 98-107 Not Available [facility] (Lab) [address] [place], [address], 11/25/2022 09:20:11 11/26/19 23 11/25/2022 COMPR EHENS LENORE METAB OLIC PANEL carbon dioxide 29 mmol/ L 22-30 Not Available [facility] (Lab) [address] [place], [address], 11/25/2022 09:20:11 11/26/19 23 11/25/2022 COMPR EHENS LENORE METAB OLIC PANEL anion gap 13.7 mmol/ L 14-22 low Not Available [facility] (Lab) [address] [place], [address], 11/25/2022 09:20:11 11/26/19 23 11/25/2022 COMPR EHENS LENORE METAB OLIC PANEL glucose 95 mg/dL 70-99 Not Available [facility] (Lab) [address] [place], [address], 11/25/2022 09:20:11 11/26/19 23 11/25/2022 COMPR EHENS LENORE METAB OLIC PANEL BUN 15 mg/dL 8-19 Not Available [facility] (Lab) [address] [place], [address], 11/25/2022 09:20:11 11/26/19 23 11/25/2022 COMPR EHENS LENORE METAB OLIC PANEL creatinine 0.81 mg/dL 0.66-1 .25 Not Available [facility] (Lab) [address] [place], [address], 11/25/2022 09:20:11 11/26/1911/25/2022 COMPR EHENS LENORE METAB OLIC PANEL GFR >60 Refer ence Range : [place] ge GFR Healt hy Adult : >60 mL/mi n/1.7 3 m2 Chron ic Kidne y Disea se: 15-60 mL/mi n/1.7 3 m2 Kidne y Failu re: <15/m L/min /1.73 m2 www.n iddk. nih.g ov The MDRD study equat ion has not been valid ated in child howie <18 years of age; pregn ant women ; the elder ly >85 years of age; or in some racia l or ethni c subgr oups, such as Hispa nics. Outsi de the valid ated ave eters , estim ated GFR is less accur ate, requi ring clini brian judgm ent on a case- by-ca se basis . Clini brian inter preta tion for other races and ages must be made by the clini jena. The MDRD study equat ion has not been valid ated for the evalu ation of serum creat inine relat ed to nutri abril l statu s or medic ation usage . For perso ns <18 years of age, a pedia tric GFR calcu lator is avail able on the [facility] websi te: https ://sully w.olga mcdermotty.o rg/pr ofess ional s/kdo qi/gf r_cal culat or Not Available [facility] (Lab) [address] [place], [address], 11/25/2022 09:20:11 11/26/19 23 11/25/2022 COMPR EHENS LENORE METAB OLIC PANEL alkaline phosphatase 40 U/L 38-126 Not Available [facility] (Lab) [address] [place], [address], 11/25/2022 09:20:11 11/26/19 23 11/25/2022 COMPR EHENS LENORE METAB OLIC PANEL alanine aminotransfe rase 28 U/L 0-50 Not Available [facility] (Lab) [address] [place], [address], 11/25/2022 09:20:11 11/26/19 23 11/25/2022 COMPR EHENS LENORE METAB OLIC PANEL aspartate aminotransfe rase 29 U/L 15-46 Not Available [facility] (Lab) [address] [place], [address], 11/25/2022 09:20:11 11/26/19 23 11/25/2022 COMPR EHENS LENORE METAB OLIC PANEL bilirubin, total 1.30 mg/dL 0.20-1 .30 Not Available [facility] (Lab) [address] [place], [address], 11/25/2022 09:20:11 11/26/19 23 11/25/2022 COMPR EHENS LENORE METAB OLIC PANEL calcium 9.3 mg/dL 8.4-10 .2 Not Available [facility] (Lab) [address] [place], [address], 11/25/2022 09:20:11 11/26/19 23 11/25/2022 COMPR EHENS LENORE METAB OLIC PANEL total protein 7.5 g/dL 6.3-8. 2 Not Available [facility] (Lab) [address] [place], [address], 11/25/2022 09:20:11 11/26/19 23 11/25/2022 COMPR EHENS LENORE METAB OLIC PANEL albumin 4.0 g/dL 3.0-4. 4 Not Available [facility] (Lab) [address] [place], [address], 11/25/2022 09:20:11 11/26/19 23 11/25/2022 COMPR EHENS LENORE METAB OLIC PANEL globulin 3.5 g/dL 2.6-4. 2 Not Available [facility] (Lab) [address] [place], [address], 11/25/2022 09:20:11 11/26/19 23 11/25/2022 COMPR EHENS LENORE METAB OLIC PANEL A/G ratio 1.1 ratio 1.0-2. 0 Not Available [facility] (Lab) [address] [place], [address], 11/25/2022 09:20:11 11/26/19 23 11/25/2022 LIPID PANEL cholesterol 110 mg/dL 140-19 9 low NIH JUAN NSUS RECOM MENDA TION FOR AGUSTINA STERO L: ADULT CHILD LOW RISK: <200 <170 BORDE RLINE : <200- 239 ----- HIGH RISK: >240 >200 Not Available [facility] (Lab) [address] [place], [address], 11/25/2022 09:20:15 11/26/1911/25/2022 LIPID PANEL triglyceride s 83 mg/dL 0-150 NIH JUAN NSUS REPOR T RECOM MENDA TION FOR TRIGL YCERI TAY: ADULT CHILD LOW RISK: <150 ----- BODER LINE: 150-1 99 ----- HIGH RISK: >200 ----- Not Available [facility] (Lab) [address] [place], [address], 11/25/2022 09:20:15 11/26/1911/25/2022 LIPID PANEL HDL cholesterol 64 mg/dL 40- Not Available [facility] (Lab) [address] [place], [address], 11/25/2022 09:20:15 11/26/1911/25/2022 LIPID PANEL LDL cholesterol, calculated 29 mg/dL 0-130 NIH JUAN NSUS REPOR T RECOM MENDA TIONS FOR LDL: ADULT CHILD LOW RISK <130 <110 (OPTI MAL LDL) <100 ----- HERIBERTODE RLINE : 130-1 59 ----- HIGH RISK: >160 >130 A TRIGL YCERI DE RESUL T >400 INVAL IDATE S THE CALCU LATIO N FOR LDL FRACT IONAT ION - THE LDL RESUL T WILL NOT BE REPOR MARCUS. Not Available [facility] (Lab) [address] [place], [address], 11/25/2022 09:20:15 11/26/1911/25/2022 T4 FREE free T4 1.36 NG/dL 0.78-2 .19 Not Available [facility] (Lab) [address] [place], [address], 11/25/2022 09:41:44 11/26/1911/25/2022 TSH thyroid-stim ulating hormone 2.480 uIU/m L 0.465- 4.680 Not Available [facility] (Lab) [address] [place], [address], 11/25/2022 09:51:13 11/26/19 11/25/2022 VITAM IN D 25-HY DROXY [id number] 32.6 NG/mL 30-100 Vitam in D Statu s: Defic ient: <20 ng/mL Insuf ficie nt: 20-29 ng/mL Suffi cient : 30-10 0 ng/mL Not Available [facility] (Lab) [address] [place], [address], 11/25/2022 12:04:51 05/09/20 23 05/09/2023 CBC/C OMPLE TE BLD COUNT W/DIF F white blood cells 5.5 x10'3 /uL 4.2-10 .8 Not Available [facility] (Lab) [address] [place], [address], 05/09/2023 11:21:40 05/09/20 23 05/09/2023 CBC/C OMPLE TE BLD COUNT W/DIF F red blood cells 4.97 x10'6 /uL 4.10-5 .80 Not Available [facility] (Lab) [address] [place], [address], 05/09/2023 11:21:40 05/09/20 23 05/09/2023 CBC/C OMPLE TE BLD COUNT W/DIF F hemoglobin 15.0 g/dL 13.2-1 7.0 Not Available [facility] (Lab) [address] [place], [address], 05/09/2023 11:21:40 05/09/20 23 05/09/2023 CBC/C OMPLE TE BLD COUNT W/DIF F hematocrit 46.2 % 39.3-5 0.0 Not Available [facility] (Lab) [address] [place], [address], 05/09/2023 11:21:40 05/09/20 23 05/09/2023 CBC/C OMPLE TE BLD COUNT W/DIF F mean red cell volume 93.0 fL 80.0-9 7.0 Not Available [facility] (Lab) [address] [place], [address], 05/09/2023 11:21:40 05/09/20 23 05/09/2023 CBC/C OMPLE TE BLD COUNT W/DIF F mean red cell hemoglobin 30.2 pg 27.0-3 3.0 Not Available [facility] (Lab) [address] [place], [address], 05/09/2023 11:21:40 05/09/20 23 05/09/2023 CBC/C OMPLE TE BLD COUNT W/DIF F mean RBC HGB concentratio n 32.5 g/dL 31.0-3 6.0 Not Available [facility] (Lab) [address] [place], [address], 05/09/2023 11:21:40 05/09/20 23 05/09/2023 CBC/C OMPLE TE BLD COUNT W/DIF F red cell distribution width 12.9 % 11.8-1 5.5 Not Available [facility] (Lab) [address] [place], [address], 05/09/2023 11:21:40 05/09/20 23 05/09/2023 CBC/C OMPLE TE BLD COUNT W/DIF F platelets 224 x10'3 /uL 150-40 0 Not Available [facility] (Lab) [address] [place], [address], 05/09/2023 11:21:40 05/09/20 23 05/09/2023 CBC/C OMPLE TE BLD COUNT W/DIF F mean platelet volume 11.3 fL 9.0-12 .4 Not Available [facility] (Lab) [address] [place], [address], 05/09/2023 11:21:40 05/09/20 23 05/09/2023 CBC/C OMPLE TE BLD COUNT W/DIF F neutrophils 50.8 % 39.0-7 2.0 Not Available [facility] (Lab) [address] [place], [address], 05/09/2023 11:21:40 05/09/20 23 05/09/2023 CBC/C OMPLE TE BLD COUNT W/DIF F lymphocytes 30.8 % 16.0-4 7.0 Not Available [facility] (Lab) [address] [place], [address], 05/09/2023 11:21:40 05/09/20 23 05/09/2023 CBC/C OMPLE TE BLD COUNT W/DIF F monocytes 14.1 % 5.0-12 .0 high Not Available [facility] (Lab) [address] [place], [address], 05/09/2023 11:21:40 05/09/20 23 05/09/2023 CBC/C OMPLE TE BLD COUNT W/DIF F eosinophils 3.6 % 1.0-7. 0 Not Available [facility] (Lab) [address] [place], [address], 05/09/2023 11:21:40 05/09/20 23 05/09/2023 CBC/C OMPLE TE BLD COUNT W/DIF F basophils 0.5 % 0.0-2. 0 Not Available [facility] (Lab) [address] [place], [address], 05/09/2023 11:21:40 05/09/20 23 05/09/2023 CBC/C OMPLE TE BLD COUNT W/DIF F immature granulocytes 0.2 % 0.00-0 .50 Not Available [facility] (Lab) [address] [place], [address], 05/09/2023 11:21:40 05/09/20 23 05/09/2023 CBC/C OMPLE TE BLD COUNT W/DIF F neutrophils, absolute count 2.80 x10'3 /uL 1.5-8. 0 Not Available [facility] (Lab) [address] [place], [address], 05/09/2023 11:21:40 05/09/20 23 05/09/2023 CBC/C OMPLE TE BLD COUNT W/DIF F lymphocytes, absolute count 1.70 x10'3 /uL 1.07-3 .43 Not Available [facility] (Lab) [address] [place], [address], 05/09/2023 11:21:40 05/09/20 23 05/09/2023 CBC/C OMPLE TE BLD COUNT W/DIF F monocytes, absolute count 0.78 x10'3 /uL 0.29-0 .99 Not Available [facility] (Lab) [address] [place], [address], 05/09/2023 11:21:40 05/09/20 23 05/09/2023 CBC/C OMPLE TE BLD COUNT W/DIF F eosinophils, absolute count 0.20 x10'3 /uL 0.02-0 .53 Not Available [facility] (Lab) [address] [place], [address], 05/09/2023 11:21:40 05/09/20 23 05/09/2023 CBC/C OMPLE TE BLD COUNT W/DIF F basophils, absolute count 0.03 x10'3 /uL 0.01-0 .08 Not Available [facility] (Lab) [address] [place], [address], 05/09/2023 11:21:40 05/09/20 23 05/09/2023 CBC/C OMPLE TE BLD COUNT W/DIF F immature granulocytes ,absolute 0.01 x10'3 /uL 0.00-0 .05 Not Available [facility] (Lab) [address] [place], [address], 05/09/2023 11:21:40 05/09/20 23 05/09/2023 CBC/C OMPLE TE BLD COUNT W/DIF F nucleated red blood cells 0.0 % -0 Not Available [facility] (Lab) [address] [place], [address], 05/09/2023 11:21:40 05/09/20 23 05/09/2023 CBC/C OMPLE TE BLD COUNT W/DIF F NRBC# 0.00 x10'3 /uL Not Available [facility] (Lab) [address] [place], [address], 05/09/2023 11:21:40 05/09/20 23 05/09/2023 LIPID PANEL cholesterol 116 mg/dL 140-19 9 low NIH JUAN NSUS RECOM MENDA TION FOR AGUSTINA STERO L: ADULT CHILD LOW RISK: <200 <170 BORDE RLINE : <200- 239 ----- HIGH RISK: >240 >200 Not Available [facility] (Lab) [address] [place], [address], 05/09/2023 11:53:35 05/09/20 23 05/09/2023 LIPID PANEL triglyceride s 103 mg/dL 0-150 NIH JUAN NSUS REPOR T RECOM MENDA TION FOR TRIGL YCERI TAY: ADULT CHILD LOW RISK: <150 ----- BODER LINE: 150-1 99 ----- HIGH RISK: >200 ----- Not Available [facility] (Lab) [address] [place], [address], 05/09/2023 11:53:35 05/09/20 23 05/09/2023 LIPID PANEL HDL cholesterol 52 mg/dL 40- Not Available [facility] (Lab) [address] [place], [address], 05/09/2023 11:53:35 05/09/20 23 05/09/2023 LIPID PANEL LDL cholesterol, calculated 43 mg/dL 0-130 NIH JUAN NSUS REPOR T RECOM MENDA TIONS FOR LDL: ADULT CHILD LOW RISK <130 <110 (OPTI MAL LDL) <100 ----- BORDE RLINE : 130-1 59 ----- HIGH RISK: >160 >130 A TRIGL YCERI DE RESUL T >400 INVAL IDATE S THE CALCU LATIO N FOR LDL FRACT IONAT ION - THE LDL RESUL T WILL NOT BE REPOR MARCUS. Not Available [facility] (Lab) [address] [place], [address], 05/09/2023 11:53:35 05/09/20 23 05/09/2023 COMPR EHENS LENORE METAB OLIC PANEL sodium 140 mmol/ L 137-14 5 Not Available [facility] (Lab) [address] [place], [address], 05/09/2023 11:53:43 05/09/20 23 05/09/2023 COMPR EHENS LENORE METAB OLIC PANEL potassium 4.8 mmol/ L 3.5-5. 1 Not Available [facility] (Lab) [address] [place], [address], 05/09/2023 11:53:43 05/09/20 23 05/09/2023 COMPR EHENS LENORE METAB OLIC PANEL chloride 103 mmol/ L 98-107 Not Available [facility] (Lab) [address] [place], [address], 05/09/2023 11:53:43 05/09/20 23 05/09/2023 COMPR EHENS LENORE METAB OLIC PANEL carbon dioxide 30 mmol/ L 22-30 Not Available [facility] (Lab) [address] [place], [address], 05/09/2023 11:53:43 05/09/20 23 05/09/2023 COMPR EHENS LENORE METAB OLIC PANEL anion gap 11.8 mmol/ L 14-22 low Not Available [facility] (Lab) [address] [place] [address], [address], 05/09/2023 11:53:43 05/09/20 23 05/09/2023 COMPR EHENS LENORE METAB OLIC PANEL glucose 92 mg/dL 70-99 Not Available [facility] (Lab) [address] [place], [address], 05/09/2023 11:53:43 05/09/20 23 05/09/2023 COMPR EHENS LENORE METAB OLIC PANEL BUN 14 mg/dL 8-19 Not Available [facility] (Lab) [address] [place], [address], 05/09/2023 11:53:43 05/09/20 23 05/09/2023 COMPR EHENS LENORE METAB OLIC PANEL creatinine 0.88 mg/dL 0.66-1 .25 Not Available [facility] (Lab) [address] [place], [address], 05/09/2023 11:53:43 05/09/20 23 05/09/2023 COMPR EHENS LENORE METAB OLIC PANEL GFR >60 Refer ence Range : [place] ge GFR Healt hy Adult : >60 mL/mi n/1.7 3 m2 Chron ic Kidne y Disea se: 15-60 mL/mi n/1.7 3 m2 Kidne y Failu re: <15/m L/min /1.73 m2 www.n iddk. nih.g ov The MDRD study equat ion has not been valid ated in child howie <18 years of age; pregn ant women ; the elder ly >85 years of age; or in some racia l or ethni c subgr oups, such as Hispa nics. Outsi de the valid ated ave eters , estim ated GFR is less accur ate, requi ring clini brian judgm ent on a case- by-ca se basis . Clini brian inter preta tion for other races and ages must be made by the clini jena. The MDRD study equat ion has not been valid ated for the evalu ation of serum creat inine relat ed to nutri abril l statu s or medic ation usage . For perso ns <18 years of age, a pedia tric GFR calcu lator is avail able on the [facility] websi te: https ://sully givens.o batsheva/pr ofess ional s/kdo qi/gf r_cal culat or Not Available [facility] (Lab) [address] [place], [address], 05/09/2023 11:53:43 05/09/2005/09/2023 COMPR EHENS LENORE METAB OLIC PANEL alkaline phosphatase 43 U/L 38-126 Not Available [facility] (Lab) [address] [place], [address], 05/09/2023 11:53:43 05/09/20 23 05/09/2023 COMPR EHENS LENORE METAB OLIC PANEL alanine aminotransfe rase 27 U/L 0-50 Not Available [facility] (Lab) [address] [place], [address], 05/09/2023 11:53:43 05/09/20 23 05/09/2023 COMPR EHENS LENORE METAB OLIC PANEL aspartate aminotransfe rase 26 U/L 15-46 Not Available [facility] (Lab) [address] [place], [address], 05/09/2023 11:53:43 05/09/20 23 05/09/2023 COMPR EHENS LENORE METAB OLIC PANEL bilirubin, total 1.20 mg/dL 0.20-1 .30 Not Available [facility] (Lab) [address] [place], [address], 05/09/2023 11:53:43 05/09/20 23 05/09/2023 COMPR EHENS LENORE METAB OLIC PANEL calcium 9.5 mg/dL 8.4-10 .2 Not Available [facility] (Lab) [address] [place], [address], 05/09/2023 11:53:43 05/09/20 23 05/09/2023 COMPR EHENS LENORE METAB OLIC PANEL total protein 7.6 g/dL 6.3-8. 2 Not Available [facility] (Lab) [address] [place], [address], 05/09/2023 11:53:43 05/09/20 23 05/09/2023 COMPR EHENS LEONRE METAB OLIC PANEL albumin 4.1 g/dL 3.0-4. 4 Not Available [facility] (Lab) [address] [place], [address], 05/09/2023 11:53:43 05/09/20 23 05/09/2023 COMPR EHENS LENORE METAB OLIC PANEL globulin 3.5 g/dL 2.6-4. 2 Not Available [facility] (Lab) [address] [place], [address], 05/09/2023 11:53:43 05/09/20 23 05/09/2023 COMPR EHENS LENORE METAB OLIC PANEL A/G ratio 1.2 ratio 1.0-2. 0 Not Available [facility] (Lab) [address] [place], [address], 05/09/2023 11:53:43 05/09/20 23 05/09/2023 VITAM IN D 25-HY DROXY [id number] 26.0 NG/mL 30-100 low Vitam in D Statu s: Defic ient: <20 ng/mL Insuf ficie nt: 20-29 ng/mL Suffi cient : 30-10 0 ng/mL Not Available [facility] (Lab) [address] [place], [address], 05/09/2023 12:12:55 05/09/20 23 05/09/2023 TSH W/REF JULIETTE FT4 TSH with reflex free T4 2.500 uIU/m L 0.465- 4.680 Not Available [facility] (Lab) [address] [place], [address], 05/09/2023 12:42:08 05/09/20 23 05/09/2023 PSA SCREE N PSA medicare screen 0.55 NG/mL 0.00-4 .00 Not Available [facility] (Lab) [address] [place], [address], 05/09/2023 12:42:21 11/07/19 24 11/07/2023 CBC/C OMPLE TE BLD COUNT W/DIF F white blood cells 5.8 x10'3 /uL 4.2-10 .8 Not Available [facility] (Lab) [address] [place], [address], 11/07/2023 10:07:10 11/07/19 24 11/07/2023 CBC/C OMPLE TE BLD COUNT W/DIF F red blood cells 4.82 x10'6 /uL 4.10-5 .80 Not Available [facility] (Lab) [address] [facility] [place], [address], 11/07/2023 10:07:10 11/07/19 24 11/07/2023 CBC/C OMPLE TE BLD COUNT W/DIF F hemoglobin 14.5 g/dL 13.2-1 7.0 Not Available [facility] (Lab) [address] [place], [address], 11/07/2023 10:07:10 11/07/19 24 11/07/2023 CBC/C OMPLE TE BLD COUNT W/DIF F hematocrit 43.4 % 39.3-5 0.0 Not Available [facility] (Lab) [address] [place], [address], 11/07/2023 10:07:10 11/07/19 24 11/07/2023 CBC/C OMPLE TE BLD COUNT W/DIF F mean red cell volume 90.0 fL 80.0-9 7.0 Not Available [facility] (Lab) [address] [place], [address], 11/07/2023 10:07:10 11/07/19 24 11/07/2023 CBC/C OMPLE TE BLD COUNT W/DIF F mean red cell hemoglobin 30.1 pg 27.0-3 3.0 Not Available [facility] (Lab) [address] [place], [address], 11/07/2023 10:07:10 11/07/19 24 11/07/2023 CBC/C OMPLE TE BLD COUNT W/DIF F mean RBC HGB concentratio n 33.4 g/dL 31.0-3 6.0 Not Available [facility] (Lab) [address] [place], [address], 11/07/2023 10:07:10 11/07/19 24 11/07/2023 CBC/C OMPLE TE BLD COUNT W/DIF F red cell distribution width 13.0 % 11.8-1 5.5 Not Available [facility] (Lab) [address] [place], [address], 11/07/2023 10:07:10 11/07/19 24 11/07/2023 CBC/C OMPLE TE BLD COUNT W/DIF F platelets 214 x10'3 /uL 150-40 0 Not Available [facility] (Lab) [address] [place], [address], 11/07/2023 10:07:10 11/07/19 24 11/07/2023 CBC/C OMPLE TE BLD COUNT W/DIF F mean platelet volume 11.3 fL 9.0-12 .4 Not Available [facility] (Lab) [address] [place], [address], 11/07/2023 10:07:10 11/07/19 24 11/07/2023 CBC/C OMPLE TE BLD COUNT W/DIF F neutrophils 52.5 % 39.0-7 2.0 Not Available [facility] (Lab) [address] [place], [address], 11/07/2023 10:07:10 11/07/19 24 11/07/2023 CBC/C OMPLE TE BLD COUNT W/DIF F lymphocytes 31.1 % 16.0-4 7.0 Not Available [facility] (Lab) [address] [place], [address], 11/07/2023 10:07:10 11/07/19 24 11/07/2023 CBC/C OMPLE TE BLD COUNT W/DIF F monocytes 12.4 % 5.0-12 .0 high Not Available [facility] (Lab) [address] [place], [address], 11/07/2023 10:07:10 11/07/19 24 11/07/2023 CBC/C OMPLE TE BLD COUNT W/DIF F eosinophils 3.1 % 1.0-7. 0 Not Available [facility] (Lab) [address] [place], [address], 11/07/2023 10:07:10 11/07/19 24 11/07/2023 CBC/C OMPLE TE BLD COUNT W/DIF F basophils 0.7 % 0.0-2. 0 Not Available [facility] (Lab) [address] [place], [address], 11/07/2023 10:07:10 11/07/19 24 11/07/2023 CBC/C OMPLE TE BLD COUNT W/DIF F immature granulocytes 0.2 % 0.00-0 .50 Not Available [facility] (Lab) [address] [place], [address], 11/07/2023 10:07:10 11/07/19 24 11/07/2023 CBC/C OMPLE TE BLD COUNT W/DIF F neutrophils, absolute count 3.06 x10'3 /uL 1.5-8. 0 Not Available [facility] (Lab) [address] [place], [address], 11/07/2023 10:07:10 11/07/19 24 11/07/2023 CBC/C OMPLE TE BLD COUNT W/DIF F lymphocytes, absolute count 1.81 x10'3 /uL 1.07-3 .43 Not Available [facility] (Lab) [address] [place], [address], 11/07/2023 10:07:10 11/07/19 24 11/07/2023 CBC/C OMPLE TE BLD COUNT W/DIF F monocytes, absolute count 0.72 x10'3 /uL 0.29-0 .99 Not Available [facility] (Lab) [address] [place], [address], 11/07/2023 10:07:10 11/07/19 24 11/07/2023 CBC/C OMPLE TE BLD COUNT W/DIF F eosinophils, absolute count 0.18 x10'3 /uL 0.02-0 .53 Not Available [facility] (Lab) [address] [place], [address], 11/07/2023 10:07:10 11/07/19 24 11/07/2023 CBC/C OMPLE TE BLD COUNT W/DIF F basophils, absolute count 0.04 x10'3 /uL 0.01-0 .08 Not Available [facility] (Lab) [address] [place], [address], 11/07/2023 10:07:10 11/07/19 24 11/07/2023 CBC/C OMPLE TE BLD COUNT W/DIF F immature granulocytes ,absolute 0.01 x10'3 /uL 0.00-0 .05 Not Available [facility] (Lab) [address] [place], [address], 11/07/2023 10:07:10 11/07/19 24 11/07/2023 CBC/C OMPLE TE BLD COUNT W/DIF F nucleated red blood cells 0.0 % -0 Not Available [facility] (Lab) [address] [place], [address], 11/07/2023 10:07:10 11/07/19 24 11/07/2023 CBC/C OMPLE TE BLD COUNT W/DIF F NRBC# 0.00 x10'3 /uL Not Available [facility] (Lab) [address] [place], [address], 11/07/2023 10:07:10 11/07/19 24 11/07/2023 LIPID PANEL cholesterol 115 mg/dL 140-19 9 low NIH JUAN NSUS RECOM MENDA TION FOR AGUSTINA STERO L: ADULT CHILD LOW RISK: <200 <170 BORDE RLINE : <200- 239 ----- HIGH RISK: >240 >200 Not Available [facility] (Lab) [address] [place], [address], 11/07/2023 10:53:45 11/07/19 24 11/07/2023 LIPID PANEL triglyceride s 97 mg/dL 0-150 NIH JUAN NSUS REPOR T RECOM MENDA TION FOR TRIGL YCERI TAY: ADULT CHILD LOW RISK: <150 ----- BODER LINE: 150-1 99 ----- HIGH RISK: >200 ----- Not Available [facility] (Lab) [address] [place], [address], 11/07/2023 10:53:45 11/07/19 24 11/07/2023 LIPID PANEL HDL cholesterol 56 mg/dL 40- Not Available [facility] (Lab) [address] [place], [address], 11/07/2023 10:53:45 11/07/19 24 11/07/2023 LIPID PANEL LDL cholesterol, calculated 40 mg/dL 0-130 NIH JUAN NSUS REPOR T RECOM MENDA TIONS FOR LDL: ADULT CHILD LOW RISK <130 <110 (OPTI MAL LDL) <100 ----- HERIBERTODE RLINE : 130-1 59 ----- HIGH RISK: >160 >130 A TRIGL YCERI DE RESUL T >400 INVAL IDATE S THE CALCU LATIO N FOR LDL FRACT IONAT ION - THE LDL RESUL T WILL NOT BE REPOR MARCUS. Not Available [facility] (Lab) [address] [place], [address], 11/07/2023 10:53:45 11/07/19 24 11/07/2023 COMPR EHENS LENORE METAB OLIC PANEL sodium 142 mmol/ L 137-14 5 Not Available [facility] (Lab) [address] [place], [address], 11/07/2023 10:53:49 11/07/19 24 11/07/2023 COMPR EHENS LENORE METAB OLIC PANEL potassium 5.0 mmol/ L 3.5-5. 1 Not Available [facility] (Lab) [address] [place], [address], 11/07/2023 10:53:49 11/07/19 24 11/07/2023 COMPR EHENS LENORE METAB OLIC PANEL chloride 109 mmol/ L 98-107 high Not Available [facility] (Lab) [address] [place], [address], 11/07/2023 10:53:49 11/07/19 24 11/07/2023 COMPR EHENS LENORE METAB OLIC PANEL carbon dioxide 29 mmol/ L 22-30 Not Available [facility] (Lab) [address] [place], [address], 11/07/2023 10:53:49 11/07/19 24 11/07/2023 COMPR EHENS LENORE METAB OLIC PANEL anion gap 9.0 mmol/ L 14-22 low Not Available [facility] (Lab) [address] [place], [address], 11/07/2023 10:53:49 11/07/19 24 11/07/2023 COMPR EHENS LENORE METAB OLIC PANEL glucose 94 mg/dL 70-99 Not Available [facility] (Lab) [address] [place], [address], 11/07/2023 10:53:49 11/07/19 24 11/07/2023 COMPR EHENS LENORE METAB OLIC PANEL BUN 21 mg/dL 8-19 high Not Available [facility] (Lab) [address] [place], [address], 11/07/2023 10:53:49 11/07/19 24 11/07/2023 COMPR EHENS LENORE METAB OLIC PANEL creatinine 0.86 mg/dL 0.66-1 .25 Not Available [facility] (Lab) [address] [place], [address], 11/07/2023 10:53:49 11/07/19 24 11/07/2023 COMPR EHENS LENORE METAB OLIC PANEL GFR >60 Refer ence Range : [place] ge GFR Healt hy Adult : >60 mL/mi n/1.7 3 m2 Chron ic Kidne y Disea se: 15-60 mL/mi n/1.7 3 m2 Kidne y Failu re: <15/m L/min /1.73 m2 www.n iddk. nih.g ov The MDRD study equat ion has not been valid ated in child howie <18 years of age; pregn ant women ; the elder ly >85 years of age; or in some racia l or ethni c subgr oups, such as Hispa nics. Outsi de the valid ated ave eters , estim ated GFR is less accur ate, requi ring clini brian judgm ent on a case- by-ca se basis . Clini brian inter preta tion for other races and ages must be made by the clini jena. The MDRD study equat ion has not been valid ated for the evalu ation of serum creat inine relat ed to nutri abril l statu s or medic ation usage . For perso ns <18 years of age, a pedia tric GFR xochitlu edwar is avail able on the [facility] websi te: https ://sully w.olga chon.o rg/pr ofess ional s/kdo qi/gf r_cal culat or Not Available [facility] (Lab) [address] [place], [address], 11/07/2023 10:53:49 11/07/19 24 11/07/2023 COMPR EHENS LENORE METAB OLIC PANEL alkaline phosphatase 35 U/L 38-126 low Not Available [facility] (Lab) [address] [place], [address], 11/07/2023 10:53:49 11/07/19 24 11/07/2023 COMPR EHENS LENORE METAB OLIC PANEL alanine aminotransfe rase 30 U/L 0-50 Not Available [facility] (Lab) [address] [place], [address], 11/07/2023 10:53:49 11/07/19 24 11/07/2023 COMPR EHENS LENORE METAB OLIC PANEL aspartate aminotransfe rase 33 U/L 15-46 Not Available [facility] (Lab) [address] [place], [address], 11/07/2023 10:53:49 11/07/19 24 11/07/2023 COMPR EHENS LENORE METAB OLIC PANEL bilirubin, total 1.10 mg/dL 0.20-1 .30 Not Available [facility] (Lab) [address] [place], [address], 11/07/2023 10:53:49 11/07/19 24 11/07/2023 COMPR EHENS LENORE METAB OLIC PANEL calcium 9.5 mg/dL 8.4-10 .2 Not Available [facility] (Lab) [address] [place], [address], 11/07/2023 10:53:49 11/07/19 24 11/07/2023 COMPR EHENS LENORE METAB OLIC PANEL total protein 7.3 g/dL 6.3-8. 2 Not Available [facility] (Lab) [address] [place], [address], 11/07/2023 10:53:49 11/07/19 24 11/07/2023 COMPR EHENS LENORE METAB OLIC PANEL albumin 4.2 g/dL 3.0-4. 4 Not Available [facility] (Lab) [address] [place], [address], 11/07/2023 10:53:49 11/07/19 24 11/07/2023 COMPR EHENS LENORE METAB OLIC PANEL globulin 3.1 g/dL 2.6-4. 2 Not Available [facility] (Lab) [address] [place], [address], 11/07/2023 10:53:49 11/07/19 24 11/07/2023 COMPR EHENS LENORE METAB OLIC PANEL A/G ratio 1.4 ratio 1.0-2. 0 Not Available [facility] (Lab) [address] [place], [address], 11/07/2023 10:53:49 11/07/19 24 11/07/2023 VITAM IN D 25-HY DROXY [id number] 57.5 NG/mL 30-100 Vitam in D Statu s: Defic ient: <20 ng/mL Insuf ficie nt: 20-29 ng/mL Suffi cient : 30-10 0 ng/mL Not Available [facility] (Lab) [address] [place], [address], 11/07/2023 11:04:54 11/07/19 24 11/07/2023 PSA SCREE N PSA medicare screen 0.57 NG/mL 0.00-4 .00 Not Available [facility] (Lab) [address] [place], [address], 11/07/2023 11:10:08 11/07/19 24 11/07/2023 TSH W/REF JULIETTE FT4 TSH with reflex free T4 2.470 uIU/m L 0.465- 4.680 Not Available [facility] (Lab) [address] [place], [address], 11/07/2023 11:32:24 12/17/19 24 12/17/2023 URINA LYSIS COMPL ETE/I RIS W/RFX color LIGHT- YELLOW Not Available [facility] (Lab) [address] [place], [address], 12/17/2023 17:43:07 12/17/19 24 12/17/2023 URINA LYSIS COMPL ETE/I RIS W/RFX appear CLEAR Not Available [facility] (Lab) [address] [place], [address], 12/17/2023 17:43:07 12/17/19 24 12/17/2023 URINA LYSIS COMPL ETE/I RIS W/RFX specific gravity 1.012 1.001- 1.030 Not Available [facility] (Lab) [address] [place], [address], 12/17/2023 17:43:07 12/17/19 24 12/17/2023 URINA LYSIS COMPL ETE/I RIS W/RFX pH 7.5 pH_un its 5.0-9. 0 Not Available [facility] (Lab) [address] [place], [address], 12/17/2023 17:43:07 12/17/19 24 12/17/2023 URINA LYSIS COMPL ETE/I RIS W/RFX leukocytes NEGATI VE gloria/u L negati ve- Not Available [facility] (Lab) [address] [facility] [place], [address], 12/17/2023 17:43:07 12/17/19 24 12/17/2023 URINA LYSIS COMPL ETE/I RIS W/RFX nitrite NEGATI VE negati ve- Not Available [facility] (Lab) [address] [place], [address], 12/17/2023 17:43:07 12/17/19 24 12/17/2023 URINA LYSIS COMPL ETE/I RIS W/RFX protein NEGATI VE mg/dL negati ve- Not Available [facility] (Lab) [address] [place], [address], 12/17/2023 17:43:07 12/17/19 24 12/17/2023 URINA LYSIS COMPL ETE/I RIS W/RFX glucose NORMAL mg/dL normal - Not Available [facility] (Lab) [address] [place], [address], 12/17/2023 17:43:07 12/17/19 24 12/17/2023 URINA LYSIS COMPL ETE/I RIS W/RFX ketones NEGATI VE mg/dL negati ve- Not Available [facility] (Lab) [address] [place], [address], 12/17/2023 17:43:07 12/17/19 24 12/17/2023 URINA LYSIS COMPL ETE/I RIS W/RFX urobilinogen NORMAL mg/dL normal - Not Available [facility] (Lab) [address] [place], [address], 12/17/2023 17:43:07 12/17/19 24 12/17/2023 URINA LYSIS COMPL ETE/I RIS W/RFX bilirubin NEGATI VE mg/dL negati ve- Not Available [facility] (Lab) [address] [place], [address], 12/17/2023 17:43:07 12/17/19 24 12/17/2023 URINA LYSIS COMPL ETE/I RIS W/RFX blood NEGATI VE mg/dL negati ve- Not Available [facility] (Lab) [address] [place], [address], 12/17/2023 17:43:07 12/17/19 24 12/17/2023 URINA LYSIS COMPL ETE/I RIS W/RFX white blood cells 0-8 /i??h pfi?? 0-8 Not Available [facility] (Lab) [address] [place], [address], 12/17/2023 17:43:07 12/17/19 24 12/17/2023 URINA LYSIS COMPL ETE/I RIS W/RFX red blood cells 0-4 /i??h pfi?? 0-4 Not Available [facility] (Lab) [address] [place], [address], 12/17/2023 17:43:07 12/17/19 24 12/17/2023 URINA LYSIS COMPL ETE/I RIS W/RFX bacteria NONE Not Available [facility] (Lab) [address] [place], [address], 12/17/2023 17:43:07 12/17/19 24 12/17/2023 URINA LYSIS COMPL ETE/I RIS W/RFX mucous OCCASI ONAL /i??l pfi?? abnormal Not Available [facility] (Lab) [address] [place], [address], 12/17/2023 17:43:07 12/17/19 24 12/17/2023 URINA LYSIS COMPL ETE/I RIS W/RFX squamous epithelial NONE /i??l pfi?? abnormal Not Available [facility] (Lab) [address] [place], [address], 12/17/2023 17:43:07 03/08/2003/08/2024 LIPID PANEL cholesterol 108 mg/dL 140-19 9 low NIH JUAN NSUS RECOM MENDA TION FOR AGUSTINA STERO L: ADULT CHILD LOW RISK: <200 <170 BORDE RLINE : <200- 239 ----- HIGH RISK: >240 >200 Not Available [facility] (Lab) [address] [place], [address], 03/08/2024 11:06:54 03/08/2003/08/2024 LIPID PANEL triglyceride s 117 mg/dL 0-150 NIH JUAN NSUS REPOR T RECOM MENDA TION FOR TRIGL YCERI TAY: ADULT CHILD LOW RISK: <150 ----- BODER LINE: 150-1 99 ----- HIGH RISK: >200 ----- Not Available [facility] (Lab) [address] [place], [address], 03/08/2024 11:06:54 03/08/20 24 03/08/2024 LIPID PANEL HDL cholesterol 55 mg/dL 40- Not Available [facility] (Lab) [address] [place], [address], 03/08/2024 11:06:54 03/08/20 24 03/08/2024 LIPID PANEL LDL cholesterol, calculated 30 mg/dL 0-130 NIH JUAN NSUS REPOR T RECOM MENDA TIONS FOR LDL: ADULT CHILD LOW RISK <130 <110 (OPTI MAL LDL) <100 ----- BORDE RLINE : 130-1 59 ----- HIGH RISK: >160 >130 A TRIGL YCERI DE RESUL T >400 INVAL IDATE S THE CALCU LATIO N FOR LDL FRACT IONAT ION - THE LDL RESUL T WILL NOT BE REPOR MARCUS. Not Available [facility] (Lab) [address] [place], [address], 03/08/2024 11:06:54 03/08/20 24 03/08/2024 COMPR EHENS LENORE METAB OLIC PANEL sodium 137 mmol/ L 137-14 5 Not Available [facility] (Lab) [address] [place], [address], 03/08/2024 11:06:59 03/08/2003/08/2024 COMPR EHENS LENORE METAB OLIC PANEL potassium 4.9 mmol/ L 3.5-5. 1 Not Available [facility] (Lab) [address] [place], [address], 03/08/2024 11:06:59 03/08/2003/08/2024 COMPR EHENS LENORE METAB OLIC PANEL chloride 103 mmol/ L 98-107 Not Available [facility] (Lab) [address] [place], [address], 03/08/2024 11:06:59 03/08/2003/08/2024 COMPR EHENS LENORE METAB OLIC PANEL carbon dioxide 31 mmol/ L 22-30 high Not Available [facility] (Lab) [address] [place], [address], 03/08/2024 11:06:59 03/08/2003/08/2024 COMPR EHENS LENORE METAB OLIC PANEL anion gap 7.9 mmol/ L 14-22 low Not Available [facility] (Lab) [address] [place], [address], 03/08/2024 11:06:59 03/08/2003/08/2024 COMPR EHENS LENORE METAB OLIC PANEL glucose 96 mg/dL 70-99 Not Available [facility] (Lab) [address] [place], [address], 03/08/2024 11:06:59 03/08/2003/08/2024 COMPR EHENS LENORE METAB OLIC PANEL BUN 12 mg/dL 8-19 Not Available [facility] (Lab) [address] [place], [address], 03/08/2024 11:06:59 03/08/20 24 03/08/2024 COMPR EHENS LENORE METAB OLIC PANEL creatinine 0.96 mg/dL 0.66-1 .25 Not Available [facility] (Lab) [address] [place], [address], 03/08/2024 11:06:59 03/08/20 24 03/08/2024 COMPR EHENS LENORE METAB OLIC PANEL GFR >60 Refer ence Range : [place] ge GFR Healt hy Adult : >60 mL/mi n/1.7 3 m2 Chron ic Kidne y Disea se: 15-60 mL/mi n/1.7 3 m2 Kidne y Failu re: <15/m L/min /1.73 m2 www.n iddk. [facility].g ov The MDRD study equat ion has not been valid ated in child howie <18 years of age; pregn ant women ; the elder ly >85 years of age; or in some racia l or ethni c subgr oups, such as Hismo nics. Outsi de the valid ated ave eters , estim ated GFR is less accur ate, requi ring clini brian judgm ent on a case- by-ca se basis . Clini brian inter preta tion for other races and ages must be made by the clini jena. The MDRD study equat ion has not been valid ated for the evalu ation of serum creat inine relat ed to nutri abril l statu s or medic ation usage . For perso ns <18 years of age, a pedia tric GFR calcu lator is avail able on the F websi te: https ://ww w.kid chon.o rg/pr ofess ional s/kdo qi/gf r_cal culat or Not Available [facility] (Lab) [address] [place], [address], 03/08/2024 11:06:59 03/08/20 24 03/08/2024 COMPR EHENS LENORE METAB OLIC PANEL alkaline phosphatase 40 U/L 38-126 Not Available [facility] (Lab) [address] [place], [address], 03/08/2024 11:06:59 03/08/2003/08/2024 COMPR EHENS LENORE METAB OLIC PANEL alanine aminotransfe rase 32 U/L 0-50 Not Available [facility] (Lab) [address] [place], [address], 03/08/2024 11:06:59 03/08/2003/08/2024 COMPR EHENS LENORE METAB OLIC PANEL aspartate aminotransfe rase 29 U/L 15-46 Not Available [facility] (Lab) [address] [place], [address], 03/08/2024 11:06:59 03/08/2003/08/2024 COMPR EHENS LENORE METAB OLIC PANEL bilirubin, total 1.30 mg/dL 0.20-1 .30 Not Available [facility] (Lab) [address] [place], [address], 03/08/2024 11:06:59 03/08/2003/08/2024 COMPR EHENS LENORE METAB OLIC PANEL calcium 9.8 mg/dL 8.4-10 .2 Not Available [facility] (Lab) [address] [place], [address], 03/08/2024 11:06:59 03/08/2003/08/2024 COMPR EHENS LENORE METAB OLIC PANEL total protein 7.0 g/dL 6.3-8. 2 Not Available [facility] (Lab) [address] [place], [address], 03/08/2024 11:06:59 03/08/2003/08/2024 COMPR EHENS LENORE METAB OLIC PANEL albumin 4.1 g/dL 3.0-4. 4 Not Available [facility] (Lab) [address] [place], [address], 03/08/2024 11:06:59 03/08/20 24 03/08/2024 COMPR EHENS LENORE METAB OLIC PANEL globulin 2.9 g/dL 2.6-4. 2 Not Available [facility] (Lab) [address] [place], [address], 03/08/2024 11:06:59 03/08/20 24 03/08/2024 COMPR EHENS LENORE METAB OLIC PANEL A/G ratio 1.4 ratio 1.0-2. 0 Not Available [facility] (Lab) [address] [place], [address], 03/08/2024 11:06:59 03/08/2003/08/2024 CBC/C OMPLE TE BLD COUNT W/DIF F white blood cells 6.2 x10'3 /uL 4.2-10 .8 Not Available [facility] (Lab) [address] [place], [address], 03/08/2024 11:32:30 03/08/20 24 03/08/2024 CBC/C OMPLE TE BLD COUNT W/DIF F red blood cells 5.18 x10'6 /uL 4.10-5 .80 Not Available [facility] (Lab) [address] [place], [address], 03/08/2024 11:32:30 03/08/20 24 03/08/2024 CBC/C OMPLE TE BLD COUNT W/DIF F hemoglobin 15.6 g/dL 13.2-1 7.0 Not Available [facility] (Lab) [address] [place], [address], 03/08/2024 11:32:30 03/08/20 24 03/08/2024 CBC/C OMPLE TE BLD COUNT W/DIF F hematocrit 47.4 % 39.3-5 0.0 Not Available [facility] (Lab) [address] [place], [address], 03/08/2024 11:32:30 03/08/20 24 03/08/2024 CBC/C OMPLE TE BLD COUNT W/DIF F mean red cell volume 91.5 fL 80.0-9 7.0 Not Available [facility] (Lab) [address] [place], [address], 03/08/2024 11:32:30 03/08/2003/08/2024 CBC/C OMPLE TE BLD COUNT W/DIF F mean red cell hemoglobin 30.1 pg 27.0-3 3.0 Not Available [facility] (Lab) [address] [place], [address], 03/08/2024 11:32:30 03/08/20 24 03/08/2024 CBC/C OMPLE TE BLD COUNT W/DIF F mean RBC HGB concentratio n 32.9 g/dL 31.0-3 6.0 Not Available [facility] (Lab) [address] [place], [address], 03/08/2024 11:32:30 03/08/2003/08/2024 CBC/C OMPLE TE BLD COUNT W/DIF F red cell distribution width 13.1 % 11.8-1 5.5 Not Available [facility] (Lab) [address] [place], [address], 03/08/2024 11:32:30 03/08/20 24 03/08/2024 CBC/C OMPLE TE BLD COUNT W/DIF F platelets 204 x10'3 /uL 150-40 0 Not Available [facility] (Lab) [address] [place], [address], 03/08/2024 11:32:30 03/08/20 24 03/08/2024 CBC/C OMPLE TE BLD COUNT W/DIF F mean platelet volume 11.3 fL 9.0-12 .4 Not Available [facility] (Lab) [address] [place], [address], 03/08/2024 11:32:30 03/08/2003/08/2024 CBC/C OMPLE TE BLD COUNT W/DIF F neutrophils 53.3 % 39.0-7 2.0 Not Available [facility] (Lab) [address] [place], [address], 03/08/2024 11:32:30 03/08/2003/08/2024 CBC/C OMPLE TE BLD COUNT W/DIF F lymphocytes 30.2 % 16.0-4 7.0 Not Available [facility] (Lab) [address] [place], [address], 03/08/2024 11:32:30 03/08/20 24 03/08/2024 CBC/C OMPLE TE BLD COUNT W/DIF F monocytes 12.0 % 5.0-12 .0 Not Available [facility] (Lab) [address] [place], [address], 03/08/2024 11:32:30 03/08/2003/08/2024 CBC/C OMPLE TE BLD COUNT W/DIF F eosinophils 3.7 % 1.0-7. 0 Not Available [facility] (Lab) [address] [place], [address], 03/08/2024 11:32:30 03/08/2003/08/2024 CBC/C OMPLE TE BLD COUNT W/DIF F basophils 0.5 % 0.0-2. 0 Not Available [facility] (Lab) [address] [place], [address], 03/08/2024 11:32:30 03/08/20 24 03/08/2024 CBC/C OMPLE TE BLD COUNT W/DIF F immature granulocytes 0.3 % 0.00-0 .50 Not Available [facility] (Lab) [address] [place], [address], 03/08/2024 11:32:30 03/08/2003/08/2024 CBC/C OMPLE TE BLD COUNT W/DIF F neutrophils, absolute count 3.28 x10'3 /uL 1.5-8. 0 Not Available [facility] (Lab) [address] [place], [address], 03/08/2024 11:32:30 03/08/2003/08/2024 CBC/C OMPLE TE BLD COUNT W/DIF F lymphocytes, absolute count 1.86 x10'3 /uL 1.07-3 .43 Not Available [facility] (Lab) [address] [place], [address], 03/08/2024 11:32:30 03/08/2003/08/2024 CBC/C OMPLE TE BLD COUNT W/DIF F monocytes, absolute count 0.74 x10'3 /uL 0.29-0 .99 Not Available [facility] (Lab) [address] [place], [address], 03/08/2024 11:32:30 03/08/20 24 03/08/2024 CBC/C OMPLE TE BLD COUNT W/DIF F eosinophils, absolute count 0.23 x10'3 /uL 0.02-0 .53 Not Available [facility] (Lab) [address] [place], [address], 03/08/2024 11:32:30 03/08/20 24 03/08/2024 CBC/C OMPLE TE BLD COUNT W/DIF F basophils, absolute count 0.03 x10'3 /uL 0.01-0 .08 Not Available [facility] (Lab) [address] [place], [address], 03/08/2024 11:32:30 03/08/20 24 03/08/2024 CBC/C OMPLE TE BLD COUNT W/DIF F immature granulocytes ,absolute 0.02 x10'3 /uL 0.00-0 .05 Not Available [facility] (Lab) [address] [place], [address], 03/08/2024 11:32:30 03/08/20 24 03/08/2024 CBC/C OMPLE TE BLD COUNT W/DIF F nucleated red blood cells 0.0 % -0 Not Available [facility] (Lab) [address] [place], [address], 03/08/2024 11:32:30 03/08/20 24 03/08/2024 CBC/C OMPLE TE BLD COUNT W/DIF F NRBC# 0.00 x10'3 /uL Not Available [facility] (Lab) [address] [place], [address], 03/08/2024 11:32:30 03/08/20 24 03/08/2024 TSH W/REF JULIETTE FT4 TSH with reflex free T4 2.330 uIU/m L 0.465- 4.680 Not Available [facility] (Lab) [address] [place], [address], 03/08/2024 11:35:26 03/08/20 24 03/08/2024 VITAM IN D 25-HY DROXY vd25oh 40.0 NG/mL 30-100 Vitam in D Statu s: Defic ient: <20 ng/mL Insuf ficie nt: 20-29 ng/mL Suffi cient : 30-10 0 ng/mL Not Available [facility] (Lab) [address] [place], [address], 03/08/2024 12:26:28 08/22/19 24 08/22/2023 imagi ng/di agnos tic resul t No observ ation record ed. [facility] [address], [place], [address], 08/22/2023 14:06:15 05/27/20 24 05/27/2024 MRI, brain , w/o contr ast No observ ation record ed. [facility] [address], [place], [address], 05/27/2024 11:49:38 Result Notes None recorded. 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 Active 2022 Not Available [facility] 3 13:39:01 Cerebrovas cular accident 715380709 Active 2022 Not Available [facility] 3 13:39:01 Visual impairment 376704065 Active 2022 Not Available [facility] 3 13:39:02 Total bilirubin above reference range 2855428593698 08 Active 2022 Not Available [facility] 3 13:39:01 Toothache 64103598 Active 2023 Guanakito lee MD [address], [address] , [facility] - S [employer] 4 11:22:28 Dizziness 464735062 Active 2023 SENTHIL Shanks null, [place] [facility] 4 11:23:15 Acute urinary tract infection 136184814 Active 2023 Estefanía Morales MA null, [place] [facility] 4 14:15:55 Chronic depression 775774850 Active 2023 Guanakito lee MD [address], [place], [address] , [employer] 10:58:52 Essential hypertensi on 66149722 Active 2023 Guanakito lee MD [address] [facility] [address], [place], [address] , [employer] 4 12:32:38 Pheochromo cytoma 864742938 Active 2023 Guanakito lee MD [address] [facility], [place], [address] , [employer] 12:34:21 Problem Notes None recorded. Procedures Surgical History Date Name Laterality Status Provider Name and Address Organization Details Recorded Time Medicare Wellness CPT Code, subsequent completed Sameer Camacho LPN [employer] 11/07/2023 09:00:46 Advanced Care Planning completed Sameer Camacho LPN [employer] 11/11/2023 11:00:10 open heart surgery completed Not Available [facility] 07/31/2022 23:57:35 Imaging Results Imaging Date Name Status LastModified by Organiz ation Details LastModified Time 08/22/2023 imaging/diagno stic result active [facility] [address], [place], [address], 08/22/2023 14:06:15 05/27/2024 MRI, brain, w/o contrast active [facility] [address] [facility] [address] [place] [address], [address], 05/27/2024 11:49:38 Procedure Notes None recorded. Medical Equipment None [...] and Address Organization Details Last Updated DateTime 3 182.88 cm 30 kg/m2 408629. 91 g 97.7 [degF] 60 /min 100 mm[Hg] 60 mm[Hg] SENTHIL Negron [facility] [employer] [facility] 3 10:42:57 Date Recorded Body height Body mass index (BMI) Body weight Body temperature Heart rate Systolic blood pressure Diastolic blood pressure Provider Name and Address Organization Details Last Updated DateTime 3 182.88 cm 30.5 kg/m2 577262. 28 g 97.1 [degF] 60 /min 116 mm[Hg] 68 mm[Hg] SENTHIL Negron [facility] [employer] [facility] 3 10:23:25 Date Recorded Body height Body mass index (BMI) Body weight Body temperature Heart rate Systolic blood pressure Diastolic blood pressure Provider Name and Address Organization Details Last Updated DateTime 4 182.88 cm 30.2 kg/m2 587881. 1 g 97.3 [degF] 60 /min 120 mm[Hg] 56 mm[Hg] SENTHIL Negron [facility] [place] [employer] [facility] 4 10:30:45 Date Recorded Body height Body mass index (BMI) Body weight Body temperature Heart rate Systolic blood pressure Diastolic blood pressure Provider Name and Address Organization Details Last Updated DateTime 4 182.88 cm 30.8 kg/m2 508064. 47 g 97.4 [degF] 60 /min 106 mm[Hg] 70 mm[Hg] Eva Hart [facility] [employer] [facility] 4 10:26:31 Date Recorded Body height Body mass index (BMI) Body weight Heart rate Respiratory rate Oxygen saturation Oxygen saturation in Arterial blood by Pulse oximetry Systolic blood pressure Diastolic blood pressure Provider Name and Address Organization Details Last Updated DateTime 4 182.88 cm 29.8 kg/m2 11836.3 2 g 54 /min 16 /min 97 % 97 % 100 mm[Hg] 62 mm[Hg] Sameer Camacho LPN [facility] [employer] [facility] 4 12:22:42 Social History Question Answer Notes LastModified by Organization Details LastModified Time Tobacco Smoking Status Never Smoker Not Available [facility] 07/31/2022 23:57:12 Do You Have An Advance Directive? No MIGRATION.030 [id number] Information not available 07/31/2022 What Is Your Level Of Alcohol Consumption? None MIGRATION.030 783156 Information not available 07/31/2022 Do You Wear A Helmet When Biking? No Doews Not Bike Information not available 11/11/2023 Are You Blind Or Do You Have Difficulty Seeing? No MIGRATION.030 130381 Information not available 07/31/2022 What Is Your Level Of Caffeine Consumption? None MIGRATION.030 845634 Information not available 07/31/2022 In The 14 Days Before Symptom Onset, Have You Had Close Contact With A Laboratory-confi rmed COVID-19 While That Case Was Ill? No MIGRATION.030 031198 Information not available 07/31/2022 In The 14 Days Before Symptom Onset, Have You Had Close Contact With A Person Who Is Under Investigation For COVID-19 While That Person Was Ill? No MIGRATION.030 308391 Information not available 07/31/2022 Are You Currently Employed? No Information not available 11/11/2023 Are You Deaf Or Do You Have Serious Difficulty Hearing? No MIGRATION.0301 416121 Information not available 07/31/2022 What Type Of Diet Are You Following? REGULAR MIGRATION.030 854009 Information not available 07/31/2022 What Is The Highest Grade Or Level Of School You Have Completed Or The Highest Degree You Have Received? NH88753-4 MIGRATION.030 991596 Information not available 07/31/2022 Have There Been Any Changes To Your Family Or Social Situation? No MIGRATION.030 420651 Information not available 07/31/2022 What Is The Fluoride Status Of Your Home? Unknown MIGRATION.030 621383 Information not available 07/31/2022 Are There Any Guns Present In Your Home? Yes MIGRATION.030 781080 Information not available 07/31/2022 Do You Use Insect Repellent Routinely? No MIGRATION.030 749023 Information not available 07/31/2022 Where Do You Live? SingleLevelHouse MIGRATION.030 244442 Information not available 07/31/2022 Presence Of Domestic Violence No [email or web address] Information not available 11/11/2023 Guns Present In The Home? No [email or web address] Information not available 11/11/2023 Are You Able To Care For Yourself? Yes [email or web address] Information not available 11/11/2023 Are You Blind Or Do Yo Have Difficulty Seeing? No [email or web address] Information not available 11/11/2023 Are You Deaf Or Do You Have Serious Difficulty Hearing? No [email or web address] Information not available 11/11/2023 General Stress Level? Moderate Information not available 11/11/2023 Live Alone Of With Others? With Others [email or web address] Information not available 11/11/2023 Do You Have A Medical Power Of Direct Customer Service Representative? No MIGRATION.0301 108500 Information not available 07/31/2022 What Was The Date Of Your Most Recent Tobacco Screening? 03/09/2024 [email or web address] Information not available 03/09/2024 Do You Have Any Pets? Yes Cat, Dog Outside Information not available 11/11/2023 What Is Your Relationship Status? MIGRATION.030 817001 Information not available 07/31/2022 Do You Use Your Seat Belt Or Car Seat Routinely? Yes MIGRATION.0301 528055 Information not available 07/31/2022 Do You Have Smoke And Carbon Monoxide Detectors In Your Home? Yes MIGRATION.0301 301421 Information not available 07/31/2022 Are You Passively Exposed To Smoke? No MIGRATION.0301 898970 Information not available 07/31/2022 Are There Any Smokers In Your House? No MIGRATION.0301 236051 Information not available 07/31/2022 What Types Of Sporting Activities Do You Participate In? None Information not available 11/11/2023 Do You Feel Stressed (tense, Restless, Nervous, Or Anxious, Or Unable To Sleep At Night)? [id number] Information not available 11/11/2023 Do You Use Any Illicit Or Recreational Drugs? No MIGRATION.0301 798275 Information not available 07/31/2022 Do You Use Sunscreen Routinely? No MIGRATION.0301 732234 Information not available 07/31/2022 Has Tobacco Cessation Counseling Been Provided? No N/a MIGRATION.0301 038527 Information not available 07/31/2022 Have You Recently Traveled Abroad? No MIGRATION.0301 120425 Information not available 07/31/2022 Do You Have Any Dietary Restrictions? No MIGRATION.0301 099642 Information not available 07/31/2022 Do You Or Have You Ever Used Any Other Forms Of Tobacco Or Nicotine? No MIGRATION.0301 756693 Information not available 07/31/2022 Sex: Male Functional Status Question Answer Note LastModified by Organizat ion Details LastModified Time Do you have difficulty walking or climbing stairs? No MIGRATION.6032600 026 Information not available 07/31/2022 Do you have transportation difficulties? No MIGRATION.5108387 026 Information not available 07/31/2022 Are you able to walk? YESWOREST MIGRATION.1689696 026 Information not available 07/31/2022 Do you have difficulty doing errands alone? No MIGRATION.9460248 026 Information not available 07/31/2022 Are you able to care for yourself? Yes MIGRATION.7931797 026 Information not available 07/31/2022 Do you have difficulty dressing or bathing? No MIGRATION.1328040 026 Information not available 07/31/2022 What is your exercise level? None MIGRATION.7038128 026 Information not available 07/31/2022 Mental Status Question Answer Note LastModified by Organizat ion Details LastModified Time Do you have difficulty concentrating, remembering or making decisions? No MIGRATION.831305984 6 Information not available 07/31/2022 Family History Relationship Description Onset Age of this Age Resolved Age Notes LastModified by Organization Details LastModified Time Father No current problems or disability MIGRATION.554 [id number] Not available 07/31/2022 23:57:35 Mother No current problems or disability MIGRATION.967 [id number] Not available 07/31/2022 23:57:36 Medical History Condition [...] HAVE YOU BEEN HOSPITALIZED OR SEEN IN [facility] IN THE PAST YEAR ? N [...] quadrivalent, PF 03/21/2022 completed Not Available [employer] 00:00:06 Influenza, high-dose, quadrivalent, PF 03/18/2023 completed Eva Hart RMA null, [place] [facility] [place] [employer] [facility] 05/13/2023 10:34:51 Influenza, high-dose, trivalent, PF 03/09/2024 completed Eva Hart RMA null, [place] - [facility] [employer] [facility] 03/09/2024 10:53:30 Past Encounters Encounter ID Performer Location Encounter Start Date Encounter Closed Date Diagnosis/Indication Diagnosis SNOMED-CT Code Diagnosis ICD10 Code [id number] [facility] [address] [place], [place] [address]., [address] [address] 03/13/2021 00:00:00 03/26/2021 15:13:51 [id number] [facility] [address] [place], [place] [address] [address] [address] 06/21/2021 00:00:00 07/24/2021 12:13:08 [id number] [facility] Internal [facility] [address] [place], [place] [address] [address] [address] 11/22/2021 00:00:00 11/27/2021 13:03:13 [id number] [facility] [address] [place], [place] [address] [address] [address] 01/31/2022 00:00:00 01/31/2022 11:58:41 [id number] [facility] [address] [place], [place] [address]., [address] [address] 07/30/2022 00:00:00 07/30/2022 15:06:11 [id number] Guanakito lee MD [facility] [address] [place], [place] [address]., [address] [address] 12/10/2022 10:30:30 12/10/2022 11:18:10 Screening - NAD 692185428 Z13.9 Hyperlipidemia 39124460 E78.5 Vitamin D deficiency 347 65876 E55.9 Vertigo 002466107 R42 Dyspnea on exertion 6084 5006 R06.09 Intracrani al meningioma 164041738 D32.0 Cerebrovas cular accident 455566238 I63.9 History of repair of mitral valve 425595003 Z98.890 Visual impairment 377650 003 H54.7 Total bili schmitz above reference range 0295216767 98950 R17 Screening for malignant neoplasm of prostate 268148314 Z12.5 [id number] Guanakito lee MD [facility] Internal Med [facility] [address] [address] 05/13/2023 10:10:22 05/13/2023 10:36:51 Screening - NAD 640002209 Z13.9 Hyperlipidemia 57512158 E78.5 Vitamin D deficiency 347 65380 E55.9 Vertigo 563238064 R42 Dyspnea on exertion 6084 5006 R06.09 Intracrani al meningioma 134752070 D32.0 Cerebrovas cular accident 613384884 I63.9 History of repair of mitral valve 712021609 Z98.890 Visual impairment 259505 003 H54.7 Total bili schmitz above reference range 3760279074 74372 R17 [id number] Guanakito lee MD [facility] Internal Med [facility] [address] [address] 11/11/2023 10:15:01 11/11/2023 11:20:13 Adult health examination 565567621 Z00.00 Screening for disorder 959608201 Z13.9 Screening - NAD 68120962 3 Z13.9 Hyperlipidemia 28916301 E78.5 Vitamin D deficiency 347 61214 E55.9 Vertigo 468084315 R42 Dyspnea on exertion 6084 5006 R06.09 Intracrani al meningioma 340600644 D32.0 Cerebrovas cular accident 230338267 I63.9 History of repair of mitral valve 968648691 Z98.890 Visual impairment 103818 003 H54.7 Total bili schmitz above reference range 1100724586 80731 R17 [id number] Guanakito lee MD [facility] Internal Med [facility] [address] [place] [address] 03/09/2024 10:13:25 03/09/2024 10:58:03 Hyperlipidemia 99858066 E78.5 Screening - NAD 25583830 3 Z13.9 Vitamin D deficiency 347 83628 E55.9 Vertigo 219173731 R42 Dyspnea on exertion 6084 5006 R06.09 Intracrani al meningioma 184413039 D32.0 Cerebrovas cular accident 663508019 I63.9 History of repair of mitral valve 852928899 Z98.890 Visual impairment 333372 003 H54.7 Total bili schmitz above reference range 4109619567 76450 R17 Administra tion of influenza vaccine 68439783 Z23 Chronic depression 52439 0009 F32.A [id number] Guanakito lee MD [facility] Internal Med [facility] [address] [place] [address] 04/08/2024 12:19:23 04/08/2024 12:50:53 Essential hypertension 25903099 I10 Vertigo 221700986 R42 Cerebrovas cular accident 936950775 I63.9 Pheochromocytoma 9791957 09 D35.00 Health Concerns Section Related Observation LastModified by Organization Detai ls LastModified Time None Recorded Concern Status LastModified by Organization Details LastModified Time None Recorded Advance Directives Directive N: Payers Encounter Date Sequence Insurance Name Policy Number Policy Hinton Covered Member ID Hinton Member ID Guarantor Name 12/10/2022 1 [employer] [employer] - DUAL [place]IG[place] (MEDICARE REPLACEMENT/A DVANTAGE - HMO) [id number] Nirav Kearns [id number] Nirav Kearns 05/13/2023 1 [place] - [place] (MEDICARE REPLACEMENT/A DVANTAGE - HMO) [id number] Nirav Kearns [id number] Nirav Kearns 11/11/2023 1 [facility] (MEDICARE REPLACEMENT/A DVANTAGE - PPO) [id number] Nirav Kerans [id number] Nirav Kearns 03/09/2024 1 [facility] (MEDICARE REPLACEMENT/A DVANTAGE - PPO) [id number] Nirav Kearns [id number] Nirav Kearns 04/08/2024 1 [facility] (MEDICARE REPLACEMENT/A DVANTAGE - PPO) [id number] Nirav Highgiev [id number] Nirav Kearns Notes Date Note Type Note Provider Name and Address Organization Details Recorded Time 12/10/2022 text/html OV 03/13/2021:He re to establish care Past Hx:Dena salas Reviewed social family and surgical history He is here to discuss aboveHe does need [...] 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 Guanakito Ware MD [address] [facility], [address], [place], [address], [facility] [employer] 12/10/2022 11:18:21 05/13/2023 text/html OV 03/13/2021:He re to establish care Past Hx:Dena salas Reviewed social family and surgical history He is here to discuss aboveHe does need [...] doing well, he did do the labs Guanakito Ware MD [address], [address], [place], [address], [facility] 05/13/2023 10:36:51 11/11/2023 text/html OV 03/13/2021:He re to establish [facility] Hx:HLDCVAMVRMening iomaReviewed social family and surgical historyHe [...] he did do the labs on 11/07/2023 Guanakito Ware MD [address], [place], [address], [facility] [employer] 11/17/2023 17:41:15 03/09/2024 text/html OV 03/13/2021:He re to establish carePast Hx:Dena Del Rosario social family and surgical historyHe is here [...] wants him to restart the citalopram Guanakito Ware MD [address], [address], [place], [address], [employer] 03/09/2024 11:10:10 04/08/2024 text/html OV 03/13/2021:He re to establish carePast Hx:HLDCVAMVDarek Del Rosario social family and surgical historyHe is here [...] sweating, no chest pain or SOB, no CHAN Guanakito Ware MD [address], [place], [address], [place] [facility] [employer] [facility] 04/14/2024 15:53:55
--- OUTSIDE RECORDS SUMMARY | 2024-06-03 22:00 | XMS_ITS | Data Portability ---
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 Plan of Treatment Reminders Order Date Submit Date Provider Last Modified By Organization Details Last Modified Time Details Appointments None recorded. Lab magnesium, serum or plasma 2019 020 MILTONOMERO Quiroz, [address], [place], [address], 0 11:11:54 TSH, ultra-sens itive, serum 2019 020 [facility], [address], [place], [address], 0 11:11:54 lipid panel, serum 2019 020 [facility] Miguel Angel, [address], [place], [address], 0 11:11:53 CBC w/ auto diff 2019 020 [facility] Miguel Angel, [address], [place], [address], 0 11:11:51 BMP, serum or plasma 2019 020 MILTONOMERO Quiroz, [address], [place], [address], 0 11:11:52 lipid panel, serum 2019 020 [facility], [address], [place], [address], 0 07:11:19 PSA, total, serum or plasma 2019 020 [facility], [address], [place], [address], 1 10:39:13 basic metabolic 1998 panel, serum or plasma 2019 020 [facility], [address], [place], [address], 0 07:11:18 CBC w/ auto diff 2019 020 [facility], [address], [place], [address], 0 07:11:17 lipid panel, serum 2020 021 [facility], [address], [place], [address], 1 08:15:50 PSA, total, serum or plasma 2020 021 [facility], [address], [place], [address], 1 08:15:51 basic metabolic 1998 panel, serum or plasma 2020 021 [facility], [address], [place], [address], 1 08:15:49 lipid panel, serum 2020 021 [facility], [address], [address], [place], [address], 1 06:12:45 CBC 2020 [facility], [address], [place], [address], 1 06:12:43 basic metabolic 1998 panel, serum or plasma 2020 [facility], [address], [place], [address], 1 06:12:44 noninvasiv e colorectal cancer DNA + occult blood screening, stool 2020 [facility] (Cologuard Orders Only), [address], [address], [place], [address], 2 07:39:24 Referral ophthalmol ogist referral 2020 BONITA [facility], [address], [place], [address], 1 14:39:[address] referral - Follow up 2020 [email or web address] Pk Enrique MD, [address] [facility], [facility] [address], [place], [address], 1 14:39:58 Procedures None recorded. Surgeries None recorded. Imaging None recorded. Medication Orders atorvastat in 80 mg tablet 2019 020 [facility], [address] [place], [address], 0 12:09:07 ipratropiu m bromide 21 mcg (0.03 %) nasal spray 2019 020 [facility], [address] [place], [address], 0 10:23:49 citalopram 10 mg tablet 2019 020 [facility] [address], [address], 0 12:09:06 dicloxacil debi 500 mg capsule 2019 020 [facility] [address], [address], 1 10:33:24 atorvastat in 80 mg tablet 2020 021 [facility] [address], [address], 1 10:42:42 aspirin 325 mg tablet,del ayed release 2020 021 [facility] [address], [address], 1 10:42:43 citalopram 10 mg tablet 2020 021 [facility] [address], [address], 1 10:42:43 Augmentin 875 mg-125 mg tablet 2020 021 [facility] [address], [address], 1 10:16:29 acetaminop hen 300 mg-codeine 30 mg tablet 2020 021 [facility] [address], [address], 1 10:16:32 Patient TargetsNo targets recorded. Patient Instructions Encounter Date Encounter Id Patient Instructions Last Modified By Organization Details Last Modified Time 06/08/2019 [id number] upper respirator y infection (cold): care instructions oajao Not available 06/08/2019 12:09:23 learning about mood disorders oajao Not available 06/08/2019 12:09:03 Labs Ipratropiun NS Follow up in months oajao Not available 06/08/2019 21:25:37 12/07/2019 [id number] Dicloxacillin Wa rm packs Labs Follow up in 6 months List of dentists Addendum PSA in March, oajao Not available 12/07/2019 10:53:39 06/08/2020 [id number] reduced vision: care instructions oajao Not available 06/08/2020 10:45:37 learning about mood disorders oajao Not available 06/08/2020 10:42:38 Labs Dentist Ophthalmology Follow up in 6 months oajao Not available 06/08/2020 10:47:00 11/20/2020 [id number] Dentist CELENA (Appointment 11/21/2020) Augmentin, side effects were discussed Tylenol #3 oajao Not available 11/20/2020 15:34:44 12/06/2020 [id number] bradycardia: car e instructions oajao Not available 12/06/2020 11:28:10 Cardiology follo w up Consultation note from the neurologist Zve Covid vaccine Follow up in 6 months Dentist to see Addendum CBC/BMP oajao Not available 12/06/2020 13:19:47 Reason for Referral Library Acquisitions Technician Referral for Visual impairment Referring Physician: Devin Whitaker, Internal Medicine, Encounter Date: 06/08/2020 Farm Equipment Mechanic Referral for Br adycardia Follow up Follow up Referring Physician: Devin Whitaker, Internal Medicine, Encounter Date: 12/06/2020 Results Created Date Observation Date Name Description Value Unit Range Abnormal Flag Note LastModifiedBy Organization Detail LastModifiedTime 12/06/2021 COLOG UARD cologuard result Cancel led - Order d not applic able Not Available [facility] (Cologuard Orders Only) [address], [place], [address], 12/06/2021 07:39:24 06/09/19 20 06/10/2019 CBC w/ auto diff WBC 5.9 x10e3 /uL 3.4-10 .8 Not Available [facility] ([facility]) [address] [place], [address], 06/10/2019 11:11:51 06/09/19 20 06/10/2019 CBC w/ auto diff RBC 4.91 x10e6 /uL 4.14-5 .80 Not Available [facility] ([facility]) [address] [place], [address], 06/10/2019 11:11:51 06/09/19 20 06/10/2019 CBC w/ auto diff hemoglobin 14.5 g/dL 13.0-1 7.7 Not Available [facility] ([facility]) [address] [place], [address], 06/10/2019 11:11:51 06/09/1906/10/2019 CBC w/ auto diff hematocrit 44.6 % 37.5-5 1.0 Not Available [facility] ([facility]) [address] [place], [address], 06/10/2019 11:11:51 06/09/19 20 06/10/2019 CBC w/ auto diff MCV 91 fL 79-97 Not Available [facility] ([facility]) [address] [place], [address], 06/10/2019 11:11:51 06/09/1906/10/2019 CBC w/ auto diff MCH 29.5 pg 26.6-3 3.0 Not Available [facility] ([facility]) [address] [place], [address], 06/10/2019 11:11:51 06/09/1906/10/2019 CBC w/ auto diff MCHC 32.5 g/dL 31.5-3 5.7 Not Available [facility] ([facility]) [address] [place], [address], 06/10/2019 11:11:51 06/09/19 20 06/10/2019 CBC w/ auto diff RDW 13.4 % 11.6-1 5.4 Ple ase note refer ence inter pura garibay e Not Available [facility] ([facility]) [address] [facility], [place], [address], 06/10/2019 11:11:51 06/09/19 20 06/10/2019 CBC w/ auto diff platelets 223 x10e3 /uL 150-45 0 Not Available [facility] ([facility]) [address] [facility], [place], [address], 06/10/2019 11:11:51 06/09/19 20 06/10/2019 CBC w/ auto diff neutrophils 53 % not estab. Not Available [facility] ([facility]) [address] [facility], [place], [address], 06/10/2019 11:11:51 06/09/19 20 06/10/2019 CBC w/ auto diff lymphs 31 % not estab. Not Available [facility] ([facility]) [address] [facility], [place], [address], 06/10/2019 11:11:51 06/09/19 20 06/10/2019 CBC w/ auto diff monocytes 12 % not estab. Not Available [facility] ([facility]) [address] [facility], [place], [address], 06/10/2019 11:11:51 06/09/19 20 06/10/2019 CBC w/ auto diff eos 4 % not estab. Not Available [facility] ([facility]) [address] [facility], [place], [address], 06/10/2019 11:11:51 06/09/19 20 06/10/2019 CBC w/ auto diff basos 0 % not estab. 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 0 Not Available [facility] ([facility]) [address] [place], [address], 06/10/2019 11:11:51 06/09/1906/10/2019 CBC w/ auto diff lymphs (absolute) 1.9 x10e3 /uL 0.7-3. 1 Not Available [facility] ([facility]) [address] [place], [address], 06/10/2019 11:11:51 06/09/1906/10/2019 CBC w/ auto diff monocytes(ab solute) 0.7 x10e3 /uL 0.1-0. 9 Not Available [facility] ([facility]) [address] [place], [address], 06/10/2019 11:11:51 06/09/19 20 06/10/2019 CBC w/ auto diff eos (absolute) 0.3 x10e3 /uL 0.0-0. 4 Not Available [facility] ([facility]) [address] [place], [address], 06/10/2019 11:11:51 06/09/1906/10/2019 CBC w/ auto diff baso (absolute) 0.0 x10e3 /uL 0.0-0. 2 Not Available [facility] ([facility]) [address] [place], [address], 06/10/2019 11:11:51 06/09/1906/10/2019 CBC w/ auto diff immature granulocytes 0 % not estab. Not Available [facility] ([facility]) [address] [facility], [place], [address], 06/10/2019 11:11:51 06/09/19 20 06/10/2019 CBC w/ auto diff immature grans (abs) 0.0 x10e3 /uL 0.0-0. 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 Not Available [facility] ([facility]) [address] [facility], [place], [address], 06/10/2019 11:11:51 06/09/19 20 06/10/2019 CBC w/ auto diff hematology comments: 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 Not Available [facility] ([facility]) [address] [facility], [place], [address], 06/10/2019 11:11:51 06/09/1906/10/2019 BMP, serum or plasm a glucose 92 mg/dL 65-99 Not Available [facility] ([facility]) [address] [place], [address], 06/10/2019 11:11:52 06/09/1906/10/2019 BMP, serum or plasm a BUN 15 mg/dL 8-27 Not Available [facility] ([facility]) [address] [place], [address], 06/10/2019 11:11:52 06/09/1906/10/2019 BMP, serum or plasm a creatinine 0.82 mg/dL 0.76-1 .27 Not Available [facility] ([facility]) [address] [place], [address], 06/10/2019 11:11:52 06/09/1906/10/2019 BMP, serum or plasm a eGFR if nonafricn AM 92 mL/mi n/1.7 3 >59 Not Available [facility] ([facility]) [address] [facility] [place], [address], 06/10/2019 11:11:52 06/09/19 20 06/10/2019 BMP, serum or plasm a eGFR if africn AM 107 mL/mi n/1.7 3 >59 Not Available [facility] ([facility]) [address] [facility] [place], [address], 06/10/2019 11:11:52 06/09/19 20 06/10/2019 BMP, serum or plasm a BUN/creatini ne ratio 18 10-24 Not Available [facility] ([facility]) [address] [facility] [place], [address], 06/10/2019 11:11:52 06/09/19 20 06/10/2019 BMP, serum or plasm a sodium 142 mmol/ L 134-14 4 Not Available [facility] ([facility]) [address] [facility] [place], [address], 06/10/2019 11:11:52 06/09/1906/10/2019 BMP, serum or plasm a potassium 4.8 mmol/ L 3.5-5. 2 Not Available [facility] ([facility]) [address] [facility] [place], [address], 06/10/2019 11:11:52 06/09/1906/10/2019 BMP, serum or plasm a chloride 102 mmol/ L 96-106 Not Available [facility] ([facility]) [address] [facility] [place], [address], 06/10/2019 11:11:52 06/09/1906/10/2019 BMP, serum or plasm a carbon dioxide, total 27 mmol/ L 20-29 Not Available [facility] ([facility]) [address] [facility] [place], [address], 06/10/2019 11:11:52 06/09/19 20 06/10/2019 lipid panel , serum cholesterol, total 105 mg/dL 100-19 9 Not Available [facility] ([facility]) [address] [facility] [place], [address], 06/10/2019 11:11:53 06/09/19 20 06/10/2019 lipid panel , serum triglyceride s 70 mg/dL 0-149 Not Available [facility] ([facility]) [address] [facility] [place], [address], 06/10/2019 11:11:53 06/09/1906/10/2019 lipid panel , serum HDL cholesterol 54 mg/dL >39 Not Available [facility] ([facility]) [address] [facility] [place], [address], 06/10/2019 11:11:53 06/09/1906/10/2019 lipid panel , serum VLDL cholesterol brian 14 mg/dL 5-40 Not Available [facility] ([facility]) [address] [place] [place], [address], 06/10/2019 11:11:53 06/09/1906/10/2019 lipid panel , serum LDL cholesterol calc 37 mg/dL 0-99 Not Available [facility] ([facility]) [address] [facility] [place], [address], 06/10/2019 11:11:53 06/09/1906/10/2019 lipid panel , serum 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 3 Not Available [facility] ([facility]) [address] [facility], [place], [address], 06/10/2019 11:11:54 12/08/1912/09/2019 CBC w/ auto diff WBC 5.2 x10e3 /uL 3.4-10 .8 Not Available [facility] ([facility]) [address] [facility], [place], [address], 12/09/2019 07:11:17 12/08/1912/09/2019 CBC w/ auto diff RBC 4.72 x10e6 /uL 4.14-5 .80 Not Available [facility] ([facility]) [address] [facility], [place], [address], 12/09/2019 07:11:17 12/08/1912/09/2019 CBC w/ auto diff hemoglobin 14.0 g/dL 13.0-1 7.7 Not Available [facility] ([facility]) [address] [facility], [place], [address], 12/09/2019 07:11:17 12/08/1912/09/2019 CBC w/ auto diff hematocrit 43.4 % 37.5-5 1.0 Not Available [facility] ([facility]) [address] [facility], [place], [address], 12/09/2019 07:11:17 12/08/1912/09/2019 CBC w/ auto diff MCV 92 fL 79-97 Not Available [facility] ([facility]) [address] [place], [address], 12/09/2019 07:11:17 12/08/1912/09/2019 CBC w/ auto diff MCH 29.7 pg 26.6-3 3.0 Not Available [facility] ([facility]) [address] [place], [address], 12/09/2019 07:11:17 12/08/1912/09/2019 CBC w/ auto diff MCHC 32.3 g/dL 31.5-3 5.7 Not Available [facility] ([facility]) [address] [facility], [place], [address], 12/09/2019 07:11:17 12/08/19 20 12/09/2019 CBC w/ auto diff RDW 12.2 % 11.6-1 5.4 Not Available [facility] ([facility]) [address] [facility], [place], [address], 12/09/2019 07:11:17 12/08/1912/09/2019 CBC w/ auto diff platelets 202 x10e3 /uL 150-45 0 Not Available [facility] ([facility]) [address] [facility], [place], [address], 12/09/2019 07:11:17 12/08/1912/09/2019 CBC w/ auto diff neutrophils 55 % not estab. Not Available [facility] ([facility]) [address] [facility], [place], [address], 12/09/2019 07:11:17 12/08/1912/09/2019 CBC w/ auto diff lymphs 28 % not estab. Not Available [facility] ([facility]) [address] [facility], [place], [address], 12/09/2019 07:11:17 12/08/1912/09/2019 CBC w/ auto diff monocytes 12 % not estab. Not Available [facility] ([facility]) [address] [facility], [place], [address], 12/09/2019 07:11:17 12/08/19 20 12/09/2019 CBC w/ auto diff eos 4 % not estab. Not Available [facility] ([facility]) [address] [place], [address], 12/09/2019 07:11:17 12/08/19 20 12/09/2019 CBC w/ auto diff basos 1 % not estab. 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 0 Not Available [facility] ([facility]) [address] [place], [address], 12/09/2019 07:11:17 12/08/19 20 12/09/2019 CBC w/ auto diff lymphs (absolute) 1.4 x10e3 /uL 0.7-3. 1 Not Available [facility] ([facility]) [address] [place], [address], 12/09/2019 07:11:17 12/08/19 20 12/09/2019 CBC w/ auto diff monocytes(ab solute) 0.6 x10e3 /uL 0.1-0. 9 Not Available [facility] ([facility]) [address] [place], [address], 12/09/2019 07:11:17 12/08/19 20 12/09/2019 CBC w/ auto diff eos (absolute) 0.2 x10e3 /uL 0.0-0. 4 Not Available [facility] ([facility]) [address] [place], [address], 12/09/2019 07:11:17 12/08/19 20 12/09/2019 CBC w/ auto diff baso (absolute) 0.0 x10e3 /uL 0.0-0. 2 Not Available [facility] ([facility]) [address] [facility] [place], [address], 12/09/2019 07:11:17 12/08/1912/09/2019 CBC w/ auto diff immature granulocytes 0 % not estab. Not Available [facility] ([facility]) [address] [facility] [place], [address], 12/09/2019 07:11:17 12/08/1912/09/2019 CBC w/ auto diff immature grans (abs) 0.0 x10e3 /uL 0.0-0. 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 Not Available [facility] ([facility]) [address] [place] [place], [address], 12/09/2019 07:11:17 12/08/1912/09/2019 CBC w/ auto diff hematology comments: 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 Not Available [facility] ([facility]) [address] [facility], [place], [address], 12/09/2019 07:11:17 12/08/1912/09/2019 basic metab olic 1998 panel , serum or plasm a glucose 91 mg/dL 65-99 Not Available [facility] ([facility]) [address] [place] [place], [address], 12/09/2019 07:11:18 12/08/1912/09/2019 basic metab olic 1998 panel , serum or plasm a BUN 18 mg/dL 8-27 Not Available [facility] ([facility]) [address] [place] [place], [address], 12/09/2019 07:11:18 12/08/1912/09/2019 basic metab olic 1998 panel , serum or plasm a creatinine 0.91 mg/dL 0.76-1 .27 Not Available [facility] ([facility]) [address] [place], [address], 12/09/2019 07:11:18 12/08/19 20 12/09/2019 basic metab olic 1998 panel , serum or plasm a eGFR if nonafricn AM 87 mL/mi n/1.7 3 >59 Not Available [facility] ([facility]) [address] [place], [address], 12/09/2019 07:11:18 12/08/19 20 12/09/2019 basic metab olic 1998 panel , serum or plasm a eGFR if africn AM 100 mL/mi n/1.7 3 >59 Not Available [facility] ([facility]) [address] [place], [address], 12/09/2019 07:11:18 12/08/19 20 12/09/2019 basic metab olic 1998 panel , serum or plasm a BUN/creatini ne ratio 20 10-24 Not Available [facility] ([facility]) [address] [place], [address], 12/09/2019 07:11:18 12/08/19 20 12/09/2019 basic metab olic 1998 panel , serum or plasm a sodium 142 mmol/ L 134-14 4 Not Available [facility] ([facility]) [address] [place], [address], 12/09/2019 07:11:18 12/08/19 20 12/09/2019 basic metab olic 1998 panel , serum or plasm a potassium 4.8 mmol/ L 3.5-5. 2 Not Available [facility] ([facility]) [address] [place], [address], 12/09/2019 07:11:18 12/08/19 20 12/09/2019 basic metab olic 1998 panel , serum or plasm a chloride 102 mmol/ L 96-106 Not Available [facility] ([facility]) [address] [facility], [place], [address], 12/09/2019 07:11:18 12/08/19 20 12/09/2019 basic metab olic 1998 panel , serum or plasm a carbon dioxide, total 27 mmol/ L 20-29 Not Available [facility] ([facility]) [address] [facility], [place], [address], 12/09/2019 07:11:18 12/08/19 20 12/09/2019 lipid panel , serum cholesterol, total 118 mg/dL 100-19 9 Not Available [facility] ([facility]) [address] [facility], [place], [address], 12/09/2019 07:11:19 12/08/1912/09/2019 lipid panel , serum triglyceride s 69 mg/dL 0-149 Not Available [facility] ([facility]) [address] [place], [address], 12/09/2019 07:11:19 12/08/1912/09/2019 lipid panel , serum HDL cholesterol 58 mg/dL >39 Not Available [facility] ([facility]) [address] [facility], [place], [address], 12/09/2019 07:11:19 12/08/1912/09/2019 lipid panel , serum VLDL cholesterol brian 14 mg/dL 5-40 Not Available [facility] ([facility]) [address] [place], [address], 12/09/2019 07:11:19 12/08/1912/09/2019 lipid panel , serum LDL cholesterol calc 46 mg/dL 0-99 Not Available [facility] ([facility]) [address] [place], [address], 12/09/2019 07:11:19 12/08/1912/09/2019 lipid panel , serum comment: 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 Not Available [facility] ([facility]) [address] [place], [address], 12/09/2019 07:11:19 06/09/1906/10/2020 basic metab olic 1998 panel , serum or plasm a glucose 86 mg/dL 65-99 Not Available [facility] ([facility]) [address] [place], [address], 06/10/2020 08:15:49 06/09/1906/10/2020 basic metab olic 1998 panel , serum or plasm a BUN 14 mg/dL 8-27 Not Available [facility] ([facility]) [address] [place], [address], 06/10/2020 08:15:49 06/09/1906/10/2020 basic metab olic 1998 panel , serum or plasm a creatinine 0.87 mg/dL 0.76-1 .27 Not Available [facility] ([facility]) [address] [place], [address], 06/10/2020 08:15:49 06/09/1906/10/2020 basic metab olic 1998 panel , serum or plasm a eGFR if nonafricn AM 89 mL/mi n/1.7 3 >59 Not Available [facility] ([facility]) [address] [place], [address], 06/10/2020 08:15:49 06/09/1906/10/2020 basic metab olic 1998 panel , serum or plasm a eGFR if africn AM 103 mL/mi n/1.7 3 >59 Not Available [facility] ([facility]) [address] [place], [address], 06/10/2020 08:15:49 06/09/1906/10/2020 basic metab olic 1998 panel , serum or plasm a BUN/creatini ne ratio 16 10-24 Not Available [facility] ([facility]) [address] [facility] [place], [address], 06/10/2020 08:15:49 06/09/19 21 06/10/2020 basic metab olic 1998 panel , serum or plasm a sodium 141 mmol/ L 134-14 4 Not Available [facility] ([facility]) [address] [place], [address], 06/10/2020 08:15:49 06/09/19 21 06/10/2020 basic metab olic 1998 panel , serum or plasm a potassium 4.8 mmol/ L 3.5-5. 2 Not Available [facility] ([facility]) [address] [place], [address], 06/10/2020 08:15:49 06/09/19 21 06/10/2020 basic metab olic 1998 panel , serum or plasm a chloride 100 mmol/ L 96-106 Not Available [facility] ([facility]) [address] [place], [address], 06/10/2020 08:15:49 06/09/19 21 06/10/2020 basic metab olic 1998 panel , serum or plasm a carbon dioxide, total 26 mmol/ L 20-29 Not Available [facility] ([facility]) [address] [place], [address], 06/10/2020 08:15:49 06/09/19 21 06/10/2020 lipid panel , serum cholesterol, total 115 mg/dL 100-19 9 Not Available [facility] ([facility]) [address] [place], [address], 06/10/2020 08:15:50 06/09/19 21 06/10/2020 lipid panel , serum triglyceride s 94 mg/dL 0-149 Not Available [facility] ([facility]) [address] [place], [address], 06/10/2020 08:15:50 06/09/19 21 06/10/2020 lipid panel , serum HDL cholesterol 55 mg/dL >39 Not Available [facility] ([facility]) [address] [facility], [place], [address], 06/10/2020 08:15:50 06/09/19 21 06/10/2020 lipid panel , serum VLDL cholesterol brian 18 mg/dL 5-40 Not Available [facility] ([facility]) [address] [place], [address], 06/10/2020 08:15:50 06/09/19 21 06/10/2020 lipid panel , serum LDL chol calc ([facility]) 42 mg/dL 0-99 Not Available [facility] ([facility]) [address] [facility], [place], [address], 06/10/2020 08:15:50 06/09/19 21 06/10/2020 lipid panel , serum comment: 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 0 Soledad ECLIA metho dolog y. Accor ding to the Ameri can [employer]rolo g[employer] iatio n, Serum PSA shoul d decre ase and remai n at undet ectab le level s after radic al prost atect [place]. The AUA defin es bioch emica l recur rence as an initi al PSA value 0.2 ng/mL or great er follo wed by a subse quent confi rmato ry PSA value 0.2 ng/mL or great er. Value s obtai mara with diffe rent assay metho ds or kits canno t be used inter garibay eably . Resul ts canno t be inter prete d as absol [place] evide nce of the prese nce or absen ce of kirk العلي diserosa se. Not Available [facility] ([facility]) [address] [facility], [place], [address], 06/10/2020 08:15:51 12/08/1912/08/2020 CBC, PLATE LET, NO DIFFE RENTI AL WBC 4.6 x10e3 /uL 3.4-10 .8 Not Available [facility] ([facility]) [address] [facility], [place], [address], 12/08/2020 06:12:43 12/08/1912/08/2020 CBC, PLATE LET, NO DIFFE RENTI AL RBC 4.84 x10e6 /uL 4.14-5 .80 Not Available [facility] ([facility]) [address] [facility], [place], [address], 12/08/2020 06:12:43 12/08/1912/08/2020 CBC, PLATE LET, NO DIFFE RENTI AL hemoglobin 14.1 g/dL 13.0-1 7.7 Not Available [facility] ([facility]) [address] [facility], [place], [address], 12/08/2020 06:12:43 12/08/1912/08/2020 CBC, PLATE LET, NO DIFFE RENTI AL hematocrit 44.3 % 37.5-5 1.0 Not Available [facility] ([facility]) [address] [place], [address], 12/08/2020 06:12:43 12/08/1912/08/2020 CBC, PLATE LET, NO DIFFE RENTI AL MCV 92 fL 79-97 Not Available [facility] ([facility]) [address] [place], [address], 12/08/2020 06:12:43 12/08/1912/08/2020 CBC, PLATE LET, NO DIFFE RENTI AL MCH 29.1 pg 26.6-3 3.0 Not Available [facility] ([facility]) [address] [place], [address], 12/08/2020 06:12:43 12/08/19 21 12/08/2020 CBC, PLATE LET, NO DIFFE RENTI AL MCHC 31.8 g/dL 31.5-3 5.7 Not Available [facility] ([facility]) [address] [facility], [place], [address], 12/08/2020 06:12:43 12/08/19 21 12/08/2020 CBC, PLATE LET, NO DIFFE RENTI AL RDW 12.3 % 11.6-1 5.4 Not Available [facility] ([facility]) [address] [facility], [place], [address], 12/08/2020 06:12:43 12/08/19 21 12/08/2020 CBC, PLATE LET, NO DIFFE RENTI AL platelets 229 x10e3 /uL 150-45 0 Not Available [facility] ([facility]) [address] [facility], [place], [address], 12/08/2020 06:12:43 12/08/1912/08/2020 CBC, PLATE LET, NO DIFFE RENTI AL 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 Not Available [facility] ([facility]) [address] [facility], [place], [address], 12/08/2020 06:12:43 12/08/1912/08/2020 BASIC METAB OLIC PANEL (7) glucose 93 mg/dL 65-99 Not Available [facility] ([facility]) [address] [place], [address], 12/08/2020 06:12:44 12/08/1912/08/2020 BASIC METAB OLIC PANEL (7) BUN 16 mg/dL 8-27 Not Available [facility] ([facility]) [address] [place], [address], 12/08/2020 06:12:44 12/08/19 21 12/08/2020 BASIC METAB OLIC PANEL (7) creatinine 0.95 mg/dL 0.76-1 .27 Not Available [facility] ([facility]) [address] [facility] [place], [address], 12/08/2020 06:12:44 12/08/19 21 12/08/2020 BASIC METAB OLIC PANEL (7) eGFR if nonafricn AM 82 mL/mi n/1.7 3 >59 Not Available [facility] ([facility]) [address] [facility], [place], [address], 12/08/2020 06:12:44 12/08/19 21 12/08/2020 BASIC METAB OLIC PANEL (7) eGFR if africn AM 95 mL/mi n/1.7 3 >59 Lab christine curre ntly repor ts eGFR in compl iance with the curre nt recom menda tions of the [facility]io n[facility] ation . [facility] will updat e repor ting as new guide lines are publi shed from the NKF-A SN Task force . Not Available [facility] ([facility]) [address] [facility], [place], [address], 12/08/2020 06:12:44 12/08/19 21 12/08/2020 BASIC METAB OLIC PANEL (7) BUN/creatini ne ratio 17 10-24 Not Available [facility] ([facility]) [address] [facility], [place], [address], 12/08/2020 06:12:44 12/08/19 21 12/08/2020 BASIC METAB OLIC PANEL (7) sodium 141 mmol/ L 134-14 4 Not Available [facility] ([facility]) [address] [facility], [place], [address], 12/08/2020 06:12:44 12/08/19 21 12/08/2020 BASIC METAB OLIC PANEL (7) potassium 4.7 mmol/ L 3.5-5. 2 Not Available [facility] ([facility]) [address] [place], [address], 12/08/2020 06:12:44 12/08/19 21 12/08/2020 BASIC METAB OLIC PANEL (7) chloride 102 mmol/ L 96-106 Not Available [facility] ([facility]) [address] [place], [address], 12/08/2020 06:12:44 12/08/19 21 12/08/2020 BASIC METAB OLIC PANEL (7) carbon dioxide, total 26 mmol/ L 20-29 Not Available [facility] ([facility]) [address] [place], [address], 12/08/2020 06:12:44 12/08/19 21 12/08/2020 LIPID PANEL cholesterol, total 118 mg/dL 100-19 9 Not Available [facility] ([facility]) [address] [place], [address], 12/08/2020 06:12:45 12/08/19 21 12/08/2020 LIPID PANEL triglyceride s 90 mg/dL 0-149 Not Available [facility] ([facility]) [address] [place], [address], 12/08/2020 06:12:45 12/08/19 21 12/08/2020 LIPID PANEL HDL cholesterol 54 mg/dL >39 Not Available [facility] ([facility]) [address] [place], [address], 12/08/2020 06:12:45 12/08/19 21 12/08/2020 LIPID PANEL VLDL cholesterol brian 17 mg/dL 5-40 Not Available [facility] ([facility]) [address] [place], [address], 12/08/2020 06:12:45 12/08/19 21 12/08/2020 LIPID PANEL LDL chol calc (nih) 47 mg/dL 0-99 Not Available [facility] ([facility]) [address], [place], [address], 12/08/2020 06:12:45 12/08/19 21 12/08/2020 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 [facility] [address] [facility] , [place], [address], 01/22/2021 15:10:14 01/24/20 21 01/17/2018 MRI, brain + brain stem, w/wo contr ast No observ ation record ed. [facility] [address] [facility] , [place], [address], 03/02/2021 16:51:29 04/18/20 21 04/18/2021 MRI, brain + brain stem, w/o contr ast No observ ation record ed. [facility] ([facility]) [address] [place], [address], 04/18/2021 12:40:55 07/10/19 22 07/10/2021 trans -thor acic echoc ardio gram (TTE) (PROC ) No observ ation record ed. [facility] [address], [place], [address], 07/11/2021 09:33:24 09/22/19 22 07/13/2021 rhyth m strip * No observ ation record ed. [facility] [address], [place], [address], 09/21/2021 11:20:15 09/22/19 22 09/21/2021 rhyth m strip * No observ ation record ed. [facility] [address] , [place], [address], 09/21/2021 14:12:46 12/06/19 22 12/05/2021 XR, chest No observ ation record ed. [facility] [address], [place], [address], 12/05/2021 16:53:02 08/10/19 23 08/09/2022 trans -thor acic echoc ardio gram (TTE) (PROC ) No observ ation record ed. [facility] [address], [place], [address], 08/09/2022 11:23:27 08/22/19 24 08/22/2023 trans -thor acic echoc ardio gram (TTE) (PROC ) No observ ation record ed. [facility] [address], [place], [address], 08/22/2023 14:14:49 Result Notes Documentation Provider Name and Address Organization Details Recorded Time Mri, Brain + Brain Stem, W/wo Contrast : 01/17/2018 Caty Lizarraga MA [facility], [place] - [facility] 03/02/2021 16:51:29 Problems Name Problem SNOMED Code Status Onset Date Resolution Date Notes Provider Name and Address Organization Details Recorded Time History of cerebrovasc ular accident 878923091 Active 2016 Devin Whitaker MD Attn: Rosario delgado,[address] [facility], [place], [address], [place] [facility] 7 11:28:46 Neoplasm of brain 520820050 Active 2017 Devin Whitaker MD Attn: Rosario delgado,[address] [facility], [place], [address], [place] [facility] 8 09:49:27 Impairment of balance 288890441 Active 2017 Devin Whitaker MD Attn: Rosario delgado[address] [facility], [place], [address], [place] [facility] 8 09:49:30 Mass of hand 192396845 Active 2017 Devin Whitaker MD Attn: Rosario delgado,[address] [facility], [place], [address], [place] [facility] 8 09:53:23 History of atrial fibrillatio n 996072268 Active 2018 Devin Whitaker MD Attn: Shannamaritza delgado,[address] [facility], [place], [address], [place] [facility] 9 16:36:56 Bradycardia 96665016 Active 2018 Devin Whitaker MD Attn: Shannamaritza delgado,[address] [facility], [place], [address], [place] [facility] 9 16:37:04 Cerebral meningioma 427030746 Active 2018 Devin Whitaker MD Attn: Rosario danny,[address] [facility], [place], [address], [place] [facility] 9 17:15:18 Colonoscopy declined 1629507279204 00 Active 2020 Devin Whitaker MD Attn: Rosario delgado,[address] [facility], [place], [address], [place] [facility] 1 11:20:20 Intermitten t palpitation s 698739168 Active Devin Whitaker MD Attn: Rosario danny,[address] [facility], [place], [address], [place] [facility] 6 14:57:13 Impacted cerumen 89694163 Active Devin Whitaker MD Attn: Shannamaritza g,[address] [facility], [place], [address], [place] [facility] 6 14:57:13 Insomnia 605782306 Active Devin Whitaker MD Attn: Rosario delgado,[address] [facility], [place], [address], [facility] - [facility] 6 14:57:13 Problem Notes None recorded. Procedures Surgical History Date Name Laterality Status Provider Name and Address Organization Details Recorded Time 10/03/19 16 Cardiovascular Surgery completed Devin Whitaker MD Attn: Accounting, [address] [facility], [place], [address], [facility] - [facility] 10/10/2015 07:20:42 Cardiac Catheterization completed Devin Whitaker MD Attn: Accounting, [address] [facility], [place], [address], [facility] - [facility] 10/10/2015 07:18:28 Imaging Results Imaging Date Name Status LastModified by Organization Details LastModified Time 10/17/2017 MRI, brain + brain stem, w/wo contrast completed [facility] [address] [facility], [place], [address], 01/22/2021 15:10:14 01/17/2018 MRI, brain + brain stem, w/wo contrast completed [facility] [address] [facility], [place], [address], 03/02/2021 16:51:29 04/18/2021 MRI, brain + brain stem, w/o contrast completed [facility] ([facility]) [address] [place], [address], 04/18/2021 12:40:55 07/10/2021 trans-thoracic echocardiogram (TTE) (PROC) completed [facility] [address], [place], [address], 07/11/2021 09:33:24 07/13/2021 rhythm strip* completed [facility] [address], [place], [address], 09/21/2021 11:20:15 09/21/2021 rhythm strip* completed [facility] [address], [place], [address], 09/21/2021 14:12:46 12/05/2021 XR, chest completed [facility] [address], [place], [address], 12/05/2021 16:53:02 08/09/2022 trans-thoracic echocardiogram (TTE) (PROC) completed [facility] [address], [place], [address], 08/09/2022 11:23:27 08/22/2023 trans-thoracic echocardiogram (TTE) (PROC) completed [facility] [address], [place], [address], 08/22/2023 14:14:49 Procedure Notes None recorded. Medical Equipment None Reported. Allergies No known drug allergies Medications Name Sig Start Date Stop Date Status Note LastModified by Organization Details LastModified Time dicloxacill in 500 mg capsule TAKE 1 CAPSULE BY MOUTH EVERY 6 HOURS DIRECTED FOR 7 DAYS 06/08 completed Not Available Not Available Not Available atorvastati n 80 mg tablet TAKE 1 TABLET BY MOUTH EVERY DAY DIRECTED active Not Available Not Available No t Available trazodone 50 mg tablet One po daily HS 11/30 completed Not Available Not Available Not Available citalopram 10 mg tablet TAKE 1 TABLET BY MOUTH EVERY DAY DIRECTED active Not Available Not Available No t Available Debrox 6.5 % ear drops Instill 5 drops twice a day by otic route for 4 days. 03/21 completed Not Available Not Available Not Available penicillin V potassium 500 mg tablet 04/30 completed Not Available Not Available Not Available acetaminoph en 300 mg-codeine 30 mg tablet Take 1 tablet every 6 hours by oral route as needed for 5 days. 12/06 completed Not Available Not Available Not Available sulfamethox azole 800 mg-trimetho prim 160 mg tablet Take 1 tablet every 12 hours by oral route as directed for 7 days. 04/10 completed Not Available Not Available Not Available aspirin 325 mg tablet,dalton yed release TAKE ONE TABLET BY MOUTH ONCE DAILY WITH A MEAL 2020 active Not Available Not Available Not Avai lable meclizine 25 mg tablet Take 1 tablet 3 times a day by oral route as needed for 30 days. 04/30 completed Not Available Not Available Not Available erythromyci n 5 mg/gram (0.5 %) eye ointment APPLY 1 CM RIBBON INTO THE LOWER CONJUNCTI PURA SAC(S) IN THE AFFECTED EYE(S) BY OPHTHALMI C ROUTE 3 TIMES PER DAY for 7 days 04/10 completed Not Available Not Available Not Available omeprazole 20 mg capsule,del ayed release Take 1 capsule every day by oral route for 30 days. 11/14 completed Not Available Not Available Not Available ergocalcife rol (vitamin D2) 1,250 mcg (50,000 unit) capsule active Not Available Not Available Not Available ipratropium bromide 21 mcg (0.03 %) nasal spray Jasper 2 sprays twice a day by intranasa l route as directed for 10 days. 12/06 completed Not Available Not Available Not Available amoxicillin 875 mg-potassiu m clavulanate 125 mg tablet TAKE ONE TABLET BY MOUTH EVERY 12 HOURS DIRECTED FOR 7 DAYS 12/06 completed Not Available Not Available Not Available Fluzone High-Dose Quad 2020-21 (PF) 240 mcg/0.7 mL IM syringe [facility] 06/08 completed Not Available Not Available Not Available Vitals Date Recorded Body height Body mass index (BMI) Body weight Heart rate Oxygen saturation Oxygen saturation in Arterial blood by Pulse oximetry Body temperature Systolic blood pressure Diastolic blood pressure Provider Name and Address Organization Details Last Updated DateTime 0 180.34 cm 29.4 kg/m2 07784.2 7 g 54 /min 97 % 97 % 97.6 [degF] 110 mm[Hg] 60 mm[Hg] Summer Clinton MA [place] - [facility] 0 11:44:11 Date Recorded Body height Body mass index (BMI) Body weight Body temperature Oxygen saturation Oxygen saturation in Arterial blood by Pulse oximetry Heart rate Respiratory rate Systolic blood pressure Diastolic blood pressure Provider Name and Address Organization Details Last Updated DateTime 0 180.34 cm 29.1 kg/m2 48011.8 1 g 97.8 [degF] 97 % 97 % 56 /min 14 /min 110 mm[Hg] 64 mm[Hg] Caty Lizarraga MA [facility] 0 10:07:28 Date Recorded Body height Body mass index (BMI) Body weight Body temperature Oxygen saturation Oxygen saturation in Arterial blood by Pulse oximetry Heart rate Systolic blood pressure Diastolic blood pressure Provider Name and Address Organization Details Last Updated DateTime 1 180.34 cm 31.4 kg/m2 007056. 56 g 98.3 [degF] 97 % 97 % 52 /min 90 mm[Hg] 64 mm[Hg] Mikhail Caceres MA [facility] 1 10:26:05 Date Recorded Respiratory rate Systolic blood pressure Diastolic blood pressure Provider Name and Address Organization Details Last Updated DateTime 06/08/2020 12 /min 110 mm[Hg] 60 mm[Hg] Devin Whitaker MD Attn: Accounting, [address] [place], [address], [facility] 06/08/2020 10:46:25 Date Recorded Body height Provider Name an d Address Organization Details Last Updated DateTime 11/20/2020 180.34 cm Caty Lizarraga MA [facility] 021 15:13:57 Date Recorded Body height Body mass index (BMI) Body weight Heart rate Respiratory rate Oxygen saturation Oxygen saturation in Arterial blood by Pulse oximetry Body temperature Systolic blood pressure Diastolic blood pressure Provider Name and Address Organization Details Last Updated DateTime 1 180.34 cm 30.8 kg/m2 239635. 91 g 60 /min 14 /min 97 % 97 % 98.6 [degF] 120 mm[Hg] 70 mm[Hg] Caty Lizarraga MA [facility] 1 10:18:43 Social History Question Answer Notes LastModified by Organizat ion Details LastModified Time Tobacco Smoking Status Never Smoker August AV Barton, [facility] 07/10/2015 14:17:35 Do You Have An Advance Directive? No Information not available 11/20/2020 Are You Blind Or Do You Have Difficulty Seeing? No Information not available 11/20/2020 What Is Your Level Of Caffeine Consumption? Occasional Information not available 11/20/2020 In The 14 Days Before Symptom Onset, Have You Had Close Contact With A Laboratory-confi rmed COVID-19 While That Case Was Ill? No Information not available 11/20/2020 In The 14 Days Before Symptom Onset, Have You Had Close Contact With A Person Who Is Under Investigation For COVID-19 While That Person Was Ill? No Information not available 11/20/2020 Have You Been To An Area Known To Be High Risk For COVID-19? Yes Information not available 11/20/2020 Are You Deaf Or Do You Have Serious Difficulty Hearing? No Information not available 11/20/2020 What Type Of Diet Are You Following? REGULAR Information not available 11/20/2020 Do You Or Have You Ever Used E-cigarettes Or Vape? Never Used Electronic Cigarettes Information not available 12/07/2019 Are There Any Guns Present In Your Home? No Information not available 11/20/2020 Marital Status Informatio n not available 07/10/2015 What Was The Date Of Your Most Recent Tobacco Screening? 12/06/2020 Information not available 12/06/2020 Do You Use Your Seat Belt Or Car Seat Routinely? Yes Information not available 11/20/2020 Do You Have Smoke And Carbon Monoxide Detectors In Your Home? Yes Information not available 11/20/2020 Do You Or Have You Ever Used Smokeless Tobacco? Never Used Smokeless Tobacco Information not available 12/07/2019 How Much Tobacco Do You Smoke? No Information not available 07/10/2015 Do You Use Sunscreen Routinely? No Information not available 11/20/2020 Has Tobacco Cessation Counseling Been Provided? No Information not available 11/30/2018 On What Date Was Tobacco Cessation Counseling Provided? 06/08/2020 Ronny Answered No To The Tobacco Cessation Counseling Provided Question On 11/30/2018. Information not available 06/08/2020 How Many Years Have You Smoked Tobacco? 0 Information not available 04/30/2017 Sex: Unknown Functional Status Question Answer Note LastModified by Organization D etails LastModified Time Are you able to care for yourself? Yes Information n ot available 11/20/2020 What is your exercise level? None Information not available 11/20/2020 Mental Status None recorded. Family History Relationship Description Onset Age of this Age Resolved Age Notes LastModified by Organization Details LastModified Time Mother Osteoporosis asavala Not availa ble 07/10/2015 14:17:35 Father Malignant tumor of lung 58 asavala Not available 2015 14:17:35 Medical History Condition Response Coronary Artery Disease N Other N Atrial Fibrillation Y High Blood Pressure N Thyroid Problems N Kidney or Bladder Problems N Depression N COPD N Blood Clots N GI Problems N Skin Problems N Anemia N Heart Attack (NM) N Diabetes N Anxiety Disorder N Muscle, Joint, or Bone Problems N Seizures/Epilepsy N Acid Reflux (GERD) N Cancer N Stroke Y Allergies N Asthma N High Cholesterol N Hepatitis N Liver Disease N Headaches N Osteoporosis N Heart Failure N Immunizations Vaccine Type Date Status Note Provider Nam e and Address Organization Details Recorded Time Influenza, split virus, quadrivalent, preservative 9 completed Devin Whitaker MD Attn: Accounting[address] [place], [place], [address] [place] [address], [place] [facility] 06/08/2019 12:05:15 Influenza, split virus, quadrivalent, preservative 0 completed Devin Whitaker MD Attn: Accounting[address] [place], [place], [address] [place] [address], [place] [facility] 03/27/2020 13:23:27 Influenza, split virus, quadrivalent, preservative 0 completed Carlos Martin LPN [facility], [place] - [facility] 03/27/2020 13:25:57 Pneumococcal conjugate PCV 13 8 completed Not Available [facility] 06/19/2019 02:35:26 pneumococcal polysaccharide PPV23 9 completed Not Available [facility] 06/19/2019 02:42:32 Tdap 5 completed Devin Whitaker MD Attn: Accounting[address] [place], [place], [address] [place] [address], [facility] 07/10/2015 14:53:35 zoster live 5 completed Devin Whitaker MD Attn: Accounting[address] [place], [address], [facility] 07/10/2015 14:54:14 Influenza, high-dose, trivalent, PF 5 completed Devin Whitaker MD Attn: Accounting[address] [place], [address], [facility] 07/10/2015 14:54:57 influenza, intradermal, quadrivalent, preservative free 6 completed Devin Whitaker MD Attn: Accounting[address] [place], [address], [facility] 03/21/2016 14:33:21 Influenza, split virus, quadrivalent, preservative 7 completed Devin Whitaker MD Attn: Accounting[address] [place], [address], [facility] 04/30/2017 11:25:57 Past Encounters Encounter ID Performer Location Encounter Start Date Encounter Closed Date Diagnosis/Indication Diagnosis SNOMED-CT Code Diagnosis ICD10 Code [id number] [facility] [address] [place] [id number] 07/10/2015 13:40:07 07/10/2015 17:49:30 General examination of patient 847769682 Z00.01 Intermitte nt palpitations 361294043 R00.2 Screening for malignant neoplasm of colon 386843345 Z12.11 Screening for malignant neoplasm of prostate 891071219 Z12.5 Impacted cerumen 7043042 6 H61.23 Insomnia 624346818 G47.0 0 [id number] MD Kate Ye (Adult Med) [address] [place] [id number] 03/21/2016 10:13:06 03/21/2016 11:00:43 Cerebrovascular accident 070103590 I63.9 History of repair of mitral valve 234734334 Z98.890 Medication monitoring 39 9710009 Z51.81 External hordeolum 49264 08 H00.019 Blepharitis 43093944 H01 .9 Elevated blood-pressure reading without diagnosis of hypertension 276220212 R03.0 [id number] MD Kate Ye (Adult Med) [address] [place] [id number] 04/10/2016 10:06:37 04/10/2016 10:59:03 Hordeolum externum of upper eyelid 537757234 H00.019 Dizziness 899581859 R42 Pure hypercholesterolemia 648417717 E78.00 History of atrial fibrillation 031306320 Z86.79 [id number] MD Kate Ye (Adult Med) [address] [place] [id number] 0 05/21/2016 09:59:36 05/21/2016 10:58:51 History of cerebrovascular accident 061917613 Z86.73 Medication monitoring 39 9499597 Z51.81 Insomnia 224720761 G47.0 0 Low blood pressure 14875 003 I95.9 [id number] MD Kate Ye (Adult Med) [address] [place] [address] [id number] 06/26/2016 11:30:33 06/26/2016 12:52:50 Dizziness 710427084 R42 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 [id number] MD Kate Ye (Adult Med) [address] [place] [address] [id number] 04/30/2017 10:42:33 04/30/2017 11:56:09 Dizziness 928610119 R42 Major depr essive disorder 722997588 F32.9 History of cerebrovascular accident 044315857 Z86.73 Colonoscopy declined 695 7170365 39642 Z53.20 Screening for malignant neoplasm of prostate 292652242 Z12.5 Diabetes m ellitus screening 712403453 Z13.1 Swelling of hand 3219382 03 R22.32 [id number] MD Kate Ye (Adult Med) [address] [place] [address] [id number] 06/11/2017 10:08:58 06/11/2017 11:21:20 Mass of hand 982997545 R22.32 History of cerebrovascular accident 152386063 Z86.73 Screening for malignant neoplasm of colon 885989536 Z12.11 [id number] MD Kate Ye (Adult Med) [address] [place] [address] 0 11/14/2017 09:26:32 11/17/2017 09:01:09 Administration of pneumococcal vaccine 78525601 Z23 Neoplasm of brain 115295 004 D49.6 Impairment of balance 38 2966881 R26.89 History of cerebrovascular accident 934431839 Z86.73 Mass of hand 532087118 R 22.32 Screening for malignant neoplasm of prostate 575887410 Z12.5 Medication monitoring 39 1889271 Z51.81 Screening for malignant neoplasm of colon 166051961 Z12.11 [id number] MD Kate Ye (Adult Med) [address] [place] [address] 0 11/30/2018 16:20:11 11/30/2018 17:16:03 Administration of pneumococcal vaccine 48694938 Z23 Screening for malignant neoplasm of colon 766800481 Z12.11 Unexplaine d weight loss 967829912 R63.4 History of atrial fibrillation 037224057 Z86.79 Bradycardia 00938683 R00 .1 History of cerebrovascular accident 030120017 Z86.73 Cerebral meningioma 1891 53620 D32.0 Screening for malignant neoplasm of prostate 834140778 Z12.5 Melanocyti c nevus of skin 132486639 D22.9 Colon canc er screening declined 4189396265 9109 Z53.20 Mass of hand 053116178 R 22.32 [id number] MD Kate Ye (Adult Med) [address] [place] [address] 0 06/08/2019 11:36:36 06/09/2019 10:22:06 History of cerebrovascular accident 340354170 Z86.73 Mass of hand 796593184 R 22.32 Mood disorder 57512258 F 39 Upper resp iratory infection 65719948 J06.9 Long-term drug therapy 985983846 Z79.899 Sinus bradycardia 687514 05 R00.1 [id number] MD Kate Ye (Adult Med) [address] [place] [address] [id number] 0 12/07/2019 10:00:13 12/07/2019 10:50:38 Hordeolum externum of left eyelid 7473409366 49365 H00.016 Tooth disorder 129695859 K08.9 Long-term drug therapy 765746265 Z79.899 History of cerebrovascular accident 699333379 Z86.73 Screening for malignant neoplasm of prostate 617781211 Z12.5 [id number] Devin Whitaker MD [facility] (Adult Med) [address] [place] [address] [id number] 0 06/08/2020 10:01:33 06/08/2020 10:55:46 Screening for malignant neoplasm of prostate 270739816 Z12.5 Medication monitoring 39 7246758 Z51.81 History of cerebrovascular accident 293264997 Z86.73 Mood disorder 38483866 F 39 Visual impairment 925371 003 H54.7 Bleeding gums 87452204 K 06.8 [id number] Devin Whitaker MD [facility] (Adult Med) [address] [place] [address] [id number] 0 11/20/2020 15:10:29 11/21/2020 13:00:43 Tooth disorder 329677698 K08.9 Immunization advised 310 266960 Z71.9 [id number] Devin Whitaker MD [facility] (Adult Med) [address] [place] [id number] 12/06/2020 10:08:18 12/06/2020 11:35:17 Screening for malignant neoplasm of colon 870317506 Z12.11 Colonoscopy declined 754 8432779 25424 Z53.20 Cerebral meningioma 1891 20961 D32.0 History of cerebrovascular accident 922409660 Z86.73 Bradycardia 68539809 R00 .1 Immunization advised 310 203030 Z71.9 Medication monitoring 39 9181316 Z51.81 Health Concerns Section Related Observation LastModified by Organization Detai ls LastModified Time None Recorded Concern Status LastModified by Organization Details LastModified Time None Recorded Advance Directives Directive N: Payers Encounter Date Sequence Insurance Name Policy Number Policy Hinton Covered Member ID H[place] Member ID Guarantor Name 06/08/2019 1 [place] Nirav Kearns [id number] Nirav Kearns 06/08/2019 2 [place] MED[place] OR MEDICARE REPLACEMENT PRIMARY) Nirav Kearns [id number] Nirav Kearns 12/07/2019 1 [place] Nirav Kearns [id number] Nirav Kearns 12/07/2019 2 [place]PLACEMENT PR[place]) Nirav Kearns [id number] Nirav Kearns 06/08/2020 1 [place] Nirav Kearns [id number] Nirav Kearns 06/08/2020 2 [place] REPLACEMENT PR[place]) Nirav Kearns [id number] Nirav Kearns 11/20/2020 1 [place] Nirav Kearns [id number] Nirav Kearns 11/20/2020 2 [place] Nirav Kearns [id number] Nirav Kearns 12/06/2020 1 [place] Nirav Kearns [id number] Nirav Kearns 12/06/2020 2 [place] OR [place] REPLACEMENT PRIMARY) Nirav Kearns [id number] Nirav Kearns Notes Date Note Type Note Provider Name and Address Organization Details Recorded Time 06/08/2019 text/html Just my nostril Mr Kearns returns, he has been doing well but he may have picked up a URI from a grandchild or his .. He complains of clear drainage from his nostrils Devin Whitaker MD Attn: [address]ing[address] [place], [address], [place] [facility] 06/08/2019 21:26:06 06/08/2019 text/html Upper Respirator y SymptomsReported bypatient.Location:[facility] Severity:no pain Onset/Timing:sudden Context:no foreign travel; non-smoker;sick contact Associated Symptoms:no sputum production; no shortness of breath; no wheezing; no change in number of pillows needed to sleep at night; no sweats; no fever; no significant weight gain; no significant weight loss; no morning cough; no sore throat; no vomiting; no diarrhea; no rash; no nausea Devin Whitaker MD Attn: Accounting[address] [facility], [place], [address], [facility] 06/08/2019 21:26:06 12/07/2019 text/html Medicare Annual Wellness VisitReported bypatient.Diet and Nutrition:healthy diet Fracture Risk:no history of fractures; no recent explained fracture; no sudden unexplained fractures; no previous musculoskeletal injuries Physical Activity:exercises on a regular basis; recent increase in physical activity; good physical condition Depression Risk:never feels sad, empty, or tearful; no loss of interest in activities; no significant changes in weight; no sleep disturbances or insomnia; no agitation; no loss of energy; no feelings of worthlessness or guilt; no thoughts of suicide; no history of depression; no history of mood disorders Orientation:no disorientation to time; no disorientation to date; no disorientation to place Concentration and Memory:no decreased concentrating ability; no memory lapses or loss; does not forget words Speech/Motor difficulties:no speech difficulties; no difficulty expressing formulated concepts; no difficulty with fine manipulative tasks; no difficulty writing/copying; no slowed reaction time; does not knock things over when trying to pick them up Hearing:no loss of hearing Vision:no vision problems Activities of Daily Living:able to bathe with limited or no assistance; able to contol urination and bowels; able to dress with limited or no assistance; able to feed self with limited or no assistance; able to get out of chair or bed with limited or no assistance; able to groom with limited or no assistance; able to toilet with limited or no assistance Instrumental Activities of Daily Living:able to do house work with limited or no assistance; able to grocery shop with limited or no assistance; able to manage medications with limited or no assistance; able to manage money with limited or no assistance; able to prepare meals with limited or no assistance; able to use the phone with limited or no assistance Falls Risk Assessment:no frequent falls while walking; no fall in the past year; no fall since last visit; no dizziness/vertigo Home Safety:no unsafe dennis hazzards; no unsafe stairs; no unsafe gas appliances; working smoke/CO detectors; wears protective head gear for biking/high velocity; use of seatbelts; practicing 'safer sex'; no vision or hearing loss while driving; has hand bars in the bathroom/shower; good lighting in the home Mr Kearns is doing well, the only issues are a left upper eyelid stye for about 3-4 months and a dental issue that improved after a course of antibiotics. Devin Whitaker MD Attn: Accounting,[address] [facility], [place], [address], [facility] 12/07/2019 10:55:12 06/08/2020 text/html Everything is f ine A long time I don't visit the eye doctor and I need some glasses And sometimes, I have bleeding when I brush Devin Whitaker MD Attn: Accounting, [address] [facility], [place], [address], [facility] 06/08/2020 19:29:56 11/20/2020 text/html Phone visit due to the Covid 19 pandemic I got a horrible toothache Right hand side, upper part of the jawNo dysphagia but swelling and the area is very painful (12/09). He has an appointment with the dentist in the morning (11/21/2020) Devin Whitaker MD Attn: Accounting[address] [place], [address], [facility] 11/20/2020 15:35:36 12/06/2020 text/html Because I got s ix month appointment No colonoscopy After I took the antibiotic, my gums, they stopped bleeding. I can't find dentist He says that I am not for him any more, he promised to make me an appointment for an MRI at I went to [facility] and they sent me to the dental school in [place] In the interim, he was seen by the neurologist, Dr Griffiths who ordered an MRI to follow up on his meningioma. His gum bleeding as resolved, he was seen by the dentist at [facility] and referred to the dental school. Devin Whitaker MD Attn: Accounting[address] [place], [address], [facility] 12/06/2020 13:20:10
== END 2024-05-27 09:13 | disposition home or self-care (01) ==
PROVIDERS: PCP Internal Medicine; Visit Provider Internal Medicine
DX: D32.0 Benign neoplasm of cerebral meninges (principal); Z86.73 Personal history of transient ischemic attack (TIA), and cerebral infarction without residual deficits
CPT/HCPCS: 70551

== ENCOUNTER 2025-01-05 12:19 | Outpatient (CLI) | payer MEDICARE, MEDICAID, SELFPAY ==
--- NOTE | 2025-01-05 12:27 | ECG_ITS ---
Test Date: 2025-01-05 12:45:20 Measurements Intervals [place] Rate: 51 P: 265 WI: 165 QRS: 11 QRSD: 99 T: 1 QT: 399 QTc: 370 Interpretive Statements ECTOPIC ATRIAL BRADYCARDIA WITH OCCASIONAL SUPRAVENTRICULAR PREMATURE COMPLEXES INCOMPLETE RIGHT BUNDLE BRANCH BLOCK LOW QRS VOLTAGE IN PRECORDIAL LEADS CONSIDER ANTERIOR INFARCT, AGE INDETERMINATE CONSIDER INFERIOR INFARCT, AGE INDETERMINATE ABNORMAL ECG No previous ECG available for comparison Electronically Signed On 01-05-2025 12:59:47 CDT by Mike Bland D.O.
--- OUTSIDE RECORDS SUMMARY | 2025-01-05 12:30 | XMS_ITS | Clinical Summary ---
Author Organization [facility] Address [address] [place] [address] Care Team Providers Care Manager Housekeeping Name Role Phone Devin Whitaker MD Primary Care Provider Source Comments [facility],non-owned Affiliates and Associated Physician Practices is amultiple site organization consisting of ambulatory clinics and hospital sitesin [place], [place], [place] and [place]. This disclosure is being madepursuant to the Care Everywhere program and may not contain all information available regarding this patient. Last updated 18.[facility] Medications * Be aware that medications may not be up to date on this document. Alwaysverify current medications with the patient. aspirin EC (ECOTRIN) 325 MG tablet Take 325 mg by mouth DAILY. 06/24/2017 Active atorvastatin (LIPITOR) 80 MG tablet Take 1 tablet by mouth DAILY. 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 Gender Identity Not on file Sexual Orientation Not on file Last Filed Vital Signs Vital Sign Reading Time Taken Comments Blood Pressure 114/67 07/07/2017 8:35 AM FREIGHT HUSTLER Pulse 55 07/07/2017 8:35 AM FREIGHT HUSTLER Temperature 36.4 C (97.5 F) 07/07/2017 8:35 AM FREIGHT HUSTLER Respiratory Rate - - Oxygen Saturation 100% 07/07/2017 8:35 AM FREIGHT HUSTLER Inhaled Oxygen Concentration - - Weight 101.6 kg (224 lb) 07/07/2017 8:35 AM FREIGHT HUSTLER Height 182.9 cm (6') 07/07/2017 8:35 AM FREIGHT HUSTLER Body Mass Index 30.38 07/07/2017 8:35 AM FREIGHT HUSTLER Plan of Treatment Health Maintenance Due Date Last Done Comments COLOGUARD (AGES 45-75) - COL ON CA SCREENING 1952 COLON MONITORING 1952 COLONOSCOPY - COLON CA SCREENING 1952 CT COLONOGRAPHY - COLON CA SCREENING 1950 Colorectal Cancer Screening 1952 FIT - COLON CA SCREENING 1952 FLEX SIG - COLON CA SCREENING 1950 HEPATITIS C SCREENING 07/30/1970 DTAP/TDAP/TD VACCINES (1 - Tdap) 08/04/1971 PNEUMOCOCCAL VACCINE 50+ (1 of 1 - PCV) 2002 ZOSTER VACCINE (1 of 2) 2002 COVID-19 VACCINE ( - 2023-2 5 season) 2024 DEPRESSION SCREENING 06/02/2024 INFLUENZA VACCINE (#1) 2025 Respiratory Syncytial Virus (RSV) Vaccine Pt: or over 60 yrs (1 - 1-dose 75+ series) 08/04/2027 HEPATITIS B VACCINE Aged Out No longe r eligible based on patient's age to complete this topic HIB VACCINE Aged Out No longer eligi ble based on patient's age to complete this topic HPV VACCINE Aged Out No longer eligi ble based on patient's age to complete this topic MENINGOCOCCAL (Group B) VACC INE SHARED DECISION-MAKING Aged Out No longer eligibl e based on patient's age to complete this topic MENINGOCOCCAL GROUPS A/C/Y/W VACCINE Aged Out No longer eligible b ased on patient's age to complete this topic Care Teams Manager Housekeeping Relationship Specialty Start Date End Date Devin Whitaker MD [address] [place], [place] [id number] PCP - General 06/19/17
== END 2025-01-05 12:20 | disposition home or self-care (01) ==
LOC: ANHSURGERY 12:23
PROVIDERS: PCP Internal Medicine; Visit Provider Surgery
DX: Z01.818 Encounter for other preprocedural examination (principal); K40.90 Unilateral inguinal hernia, without obstruction or gangrene, not specified as recurrent; E78.00 Pure hypercholesterolemia, unspecified
CPT/HCPCS: 36415; 86850; 86900; 86901; 93005

== ENCOUNTER 2025-01-11 02:17 | Day surgery (SDC) | payer MEDICARE, MEDICAID, SELFPAY ==
[2025-01-03 09:25] VITALS: BMI 29.9
--- NOTE | 2025-01-03 09:54 | PC.NURSE ---
Report to the Outpatient Waiting Room, entrance under the green pavilion located off [facility], at time __7:30AM___ on date __01/11/25___. Planned Procedure Time: ___9:30AM___.? Time changes happen often and if your time is changed the preop area will call you the afternoon before. - You and your visitor will be asked to self-screen and do not enter if you have any COVID symptoms. Please call surgeon if you need to reschedule. - A mask is optional within the hospital at this time. Patients may have clear liquids (water, carbonated beverages, clear teas, apple juice) until 3 hours prior to surgery (6:30AM) with a maximum of 20 ounces. - No food from midnight until time of surgery and no smoking, or chewing tobacco (or any form of nicotine). No chewing gum, candy or mints. Take only the following medications with a SIP of water on the morning of surgery: CITALOPRAM DO NOT STOP ANY OF YOUR OTHER PRESCRIPTION MEDICATIONS PRIOR TO SURGERY EXCEPT THE FOLLOWING Hold all vitamins and supplements for 3 days per anesthesiologist. Medications to discontinue per physician ___DECREASE ASPIRIN FROM 325MG TO 81MG 7 DAYS PRE-OP Date to take last dose OF 325MG ASPIRIN- 01/03/25 Please no make-up, nail romanian, hairspray, perfume, deodorant, or body powder the day of surgery.? No jewelry (including any body piercings) or valuables the day of surgery, leave them at home.? Please take a shower or bath the night before, or the morning of, surgery with an antibacterial soap.? Wear comfortable, loose fitting clothing.? - Jewelry must be removed prior to entering the operating room.? Rings and piercings that are not removed may be cut off. - The hospital will not accept responsibility for valuables.? - Please leave all valuables, including medications, at home the day of surgery. If you are going home after surgery, a licensed truck driver must drive you home.? - NO public transportation without another adult if you receive anesthesia. - We recommend that an adult stay with you for 24 hours following discharge. - We also recommend that you do not drive, make important decision, drink alcoholic beverages, or take any drugs that were not prescribed by your health care provider for at least 24 hours after your discharge time. Follow any additional instructions given to you from your surgeon. Telephone instructions given to ____PATIENT & DAUGHTER and asked if any additional questions and then verbalized understanding. Patient advised to call surgeon office or pre surgery nurse liaison [phone] if any additional questions.
[2025-01-11] VITALS (11 sets, daily range): BP systolic 121–156; BP diastolic 59–88; PULSE 51–63; RESP 12–20; TEMP 36.1–36.3; O2SAT 96–100
--- OUTSIDE RECORDS SUMMARY | 2025-01-11 02:20 | XMS_ITS | Clinical Summary ---
Author Organization [facility] [employer] [facility] Address [address] [place] [address] Care Team Providers Care Transportation Job Titles Name Role Phone Devin Whitaker MD Primary Care Provider Source Comments [facility] [employer],non-owned Affiliates and Associated Physician Practices is amultiple site organization consisting of ambulatory clinics and hospital sitesin [place], [place], [place] and [place]. This disclosure is being madepursuant to the Care Everywhere program and may not contain all information available regarding this patient. Last updated 18.[facility] [employer] Medications * Be aware that medications may [...] on file Legal Sex Male 5:51 PM [employer] Gender Identity Not on file Sexual Orientation Not on file Last Filed Vital Signs Vital Sign Reading Time Taken Comments Blood Pressure 114/67 07/07/2017 8:35 AM [employer] Pulse 55 07/07/2017 8:35 AM [employer] Temperature 36.4 C (97.5 F) 07/07/2017 8:35 AM [employer] Respiratory Rate - - Oxygen Saturation 100% 07/07/2017 8:35 AM [employer] Inhaled Oxygen Concentration - - Weight 101.6 kg (224 lb) 07/07/2017 8:35 AM [employer] Height 182.9 cm (6') 07/07/2017 8:35 AM [employer] Body Mass Index 30.38 07/07/2017 8:35 AM [employer] Plan of Treatment Health Maintenance Due Date [...] age to complete this topic Care Teams Transportation Job Titles Relationship Specialty Start Date End Date Devin Whitaker MD [address] [place], [place] [phone] PCP - General 06/19/17
--- OUTSIDE RECORDS SUMMARY | 2025-01-11 02:20 | XMS_ITS | Continuity of Care Document ---
Author Organization [facility] Address [address] [place] [address] Phone Care Team Providers Care Aircraft Assembler Name Role Phone Oleg PT,MPT,ATC, Shankar Unavailable Unavai lable Procedures Procedure Date Doc neg elder mal no plan PT Evaluation Moderate Complexity Therapeutic Activities Advance Directives Directive Yes / No Effective Date File Name No Information Encounters Encounter Description Practice Location Reason(s) For Visit Diagnoses Date Provider Providers Copied on Encounter [facility], [address], [place], [place], [id number], tel:[phone] [place] No Information 4 O[place], . [facility], [address], [place], [place], [id number], tel:[phone] [place] No Information 4 Oleg [place], . Referring Provider: Afshin Marmolejo [address] [facility] [address], [place], [address]. tel:[phone] Family History Family Member Type Diagnosis Age At Onset No Information Payers Payer name Insurance type Covered republican ID Authorharoldoa rodolfo(s) [employer] CI [id number] Social History Type Description Quantity Date Captured Comments Sex Male Smoking Status No Information Chief Complaint And Reason For Visit No Information Reason For Referral Reason For Referral No Information History Of Present Illness Encounter Date Complaint History Of Prese nt Illness No Information Functional Status Date Functional Assessmen t No Information Instructions Date Instruction Additional Infor mation No Information Assessments Type Assessment Date No Information Patient Care Teams Name Effective Dates (start - stop) Status Members No Information
[2025-01-11] MEDS: ACETAMINOPHEN 500 MG TABLET 1000 MG PO (08:30)
[2025-01-11] MEDS: KETOROLAC 15 MG/ML VIAL (*BKC) IV PUSH (08:30)
[2025-01-11] MEDS: LACTATED RINGERS 1,000 ML 30 ML IV CONT ×2 (08:50→11:35)
--- NOTE | 2025-01-11 09:17 | WPDANESEPPF ---
Anes - Initial Pre Proc Eval Procedure: Operation Date: 01/11/25 09:30 Proposed Procedures p Laparoscopic Left Inguinal Inguinal Hernia Repair with Mesh, Davinci Assisted - Jasper Dinero DO Date/Time: 01/11/25 09:17 Surgeon: Jasper Dinero DO Pre Op Diagnosis: left inguinal hernia Patient Data Age: 74 Gender: M Height: 1.83 m Weight: 100.1 kg Last Vital Signs Temp 36.3 C L 01/11/25 08:30 Pulse 51 L 01/11/25 08:30 Resp 14 01/11/25 08:30 BP 124/68 01/11/25 08:30 Pulse Ox 98 01/11/25 08:30 O2 Del Method Room Air 01/11/25 08:30 Allergies Allergy/AdvReac Type Severity Reaction Status Date / Time No Known Allergies Allergy Verified 01/11/25 08:38 Home Medications ?Medication ?Instructions ?Recorded ?Confirmed ?Type alprazolam 0.5 mg tablet (Xanax) 0.5 mg PO QHS PRN anxiety 11/20/20 01/03/25 History aspirin 325 mg tablet 325 mg PO DAILY 11/20/20 01/03/25 History citalopram 10 mg tablet (Celexa) 10 mg PO DAILY 11/20/20 01/03/25 History atorvastatin 40 mg tablet 40 mg PO QPM 01/03/25 01/03/25 History Patient hx anesthesia problems: none Family hx anesthesia problems: none Results Review: All pre-operative results and documents have been reviewed as part of the pre-operative evaluation. [facility] Social History Social History Smoking status: Never smoker Alcohol intake: never Substance use: never Substance use type: does not use Living arrangements: with family Additional living arrangements comments: -JESSENIA Spiritual care concerns: No Anes - Eval Final PreProcedure Day of Procedure 01/11/25 09:17 Patient weight: overweight Heart: regular rate and rhythm Lungs: clear to auscultation Airway: Mallampati scale class III Neurological: alert and oriented Last oral intake: >/= 8 hours ASA classification: III Emergent: no Anesthetic plan: proceed Anesthesia type and monitoring: general ETT and standard monitoring Results Review: All pre-operative results and documents have been reviewed as part of the pre-operative evaluation. Informed Consent: The patient's anesthetic plan and its attendant risks and benefits were discussed with the patient/family/POA. Questions were solicited and answers provided to the satisfaction of the patient/family/POA.
--- NOTE | 2025-01-11 09:18 | WPDHPUPDATE1 ---
History and Physical Update Update Date/Time: 01/11/25 09:18 History and Physical has been reviewed, including an updated exam of the patient. There are NO changes in the patient's condition. Risks, benefits, and alternatives have been discussed and questions answered. Patient agrees to proceed with procedure.
[2025-01-11] MEDS: ceFAZolin 2 GM in SODIUM CHLORIDE 0.9% IV 50 ML 100 ML IVPB (09:36)
[2025-01-11] MEDS: BUPIVACAINE/EPINEPHRINE 0.5% 50 ML VIAL 30 ML INFILTRATE (10:07)
--- NOTE | 2025-01-11 11:05 | W.PM.PROC2 ---
Procedure Note - Detailed Date of Procedure 01/11/25 Pre-op Diagnosis left inguinal hernia Post-op Diagnosis Other (bilateral indirect inguinal hernia) Procedure Performed Laparoscopic bilateral inguinal hernia repair with mesh, da Arlen assisted Surgeon Jasper Dinero DO Anesthesia General and Local (0.5% bupivacaine with epinephrine) Indications This is a 74-year-old man who presented with a left groin bulge and discomfort. He 1st noticed this about 1 month ago and this has continued to progress. He was found to have a medium-size reducible left inguinal hernia on exam. Discussions were made with the patient about treatment options and decision was made to proceed with robotic assisted laparoscopic left inguinal hernia repair with mesh. Findings Upon inspecting the abdomen laparoscopically, the patient was noted to have bilateral indirect inguinal hernias. Decision was made to repair both hernias. The left inguinal hernia was slightly larger than the right but both were indirect inguinal hernias. A robotic transabdominal preperitoneal approach was utilized for repair. Once a wide enough preperitoneal pocket was created on each side and the hernia sacs were reduced, I then placed large 3DMax mid mesh overlying each myopectineal orifice. No specimens were obtained for pathology. Description of Procedure Procedure as well as risks, benefits, and alternatives were discussed with the patient. Written consent was obtained and placed in chart prior to procedure. Patient was brought back to surgical suite. He was placed supine on operating table. Time-out was done to confirm patient and procedure. He was then intubated by Anesthesia Department. His abdomen was prepped and draped in sterile fashion using chlorhexidine prep. 0.5% bupivacaine with epinephrine was infiltrated at each location for incision. An 8 mm incision was made in the left lateral abdomen, and a 5 mm Optiview trocar was advanced through the abdominal layers under direct visualization. Once inside the abdominal cavity, carbon dioxide insufflation was used to create a pneumoperitoneum. A camera was inserted and the abdominal cavity was inspected. The patient was placed in slight Trendelenburg position. An 8 millimeter incision was made on the right lateral abdomen and an 8 millimeter trocar was inserted under direct visualization. Another 8 millimeter incision was made just superior to the umbilicus and an 8 millimeter trocar was inserted under direct visualization. The 5 mm port was then removed and this was replaced with another 8 mm robotic port. The robotic arms were brought up to the patient's bedside and secured to the ports. The camera and instruments were inserted. I then moved over to the robotic console and took control of the camera and instruments. After careful inspection of the abdominal cavity, I began scoring the peritoneum along the left lower quadrant using scissors with electrocautery. The preperitoneal plane was entered and this was carefully dissected caudally along the inferior epigastric vessels. Careful dissection with scissors with electrocautery and blunt dissection was used to continue this dissection. I dissected far enough laterally to allow for mesh placement, and also dissected medially to identify the pubic arch and Rolf's ligament. The hernia sac was identified and carefully dissected posteriorly. The cord contents were also identified and the peritoneum was carefully dissected far enough posteriorly to allow for mesh placement. Once an adequate pocket was created, I then placed the mesh within the preperitoneal pocket and carefully unfolded it. The mesh was centered on the hernia defect with adequate overlap circumferentially. The inferior edge of the mesh was inspected to ensure that it was far enough away from the peritoneal edge. The mesh appeared in proper position overlying the entire myopectineal orifice. The mesh was secured using 3-0 Vicryl simple interrupted sutures in Rolf's ligament, the superior medial edge, and superior lateral edge of the mesh. The peritoneum was then closed over the mesh using a 3-0 V-lock running absorbable suture. I then began scoring the peritoneum along the right lower quadrant using scissors with electrocautery. The preperitoneal plane was entered and this was carefully dissected caudally along the inferior epigastric vessels. Careful dissection with scissors with electrocautery and blunt dissection was used to continue this dissection. I dissected far enough laterally to allow for mesh placement, and also dissected medially to identify the pubic arch and Rolf's ligament. The hernia sac was identified and carefully dissected posteriorly. The cord contents were also identified and the peritoneum was carefully dissected far enough posteriorly to allow for mesh placement. Once an adequate pocket was created, I then placed the mesh within the preperitoneal pocket and carefully unfolded it. The mesh was centered on the hernia defect with adequate overlap circumferentially. The inferior edge of the mesh was inspected to ensure that it was far enough away from the peritoneal edge. The mesh appeared in proper position overlying the entire myopectineal orifice. The mesh was secured using 3-0 Vicryl simple interrupted sutures in Rolf's ligament, the superior medial edge, and superior lateral edge of the mesh. The peritoneum was then closed over the mesh using a 3-0 V-lock running absorbable suture. The robotic instruments were removed. The robotic arms were disengaged from the ports and moved away from the bedside. The patient was flattened out in bed, the ports were removed under direct visualization, and the pneumoperitoneum was released. The skin of the incisions was approximated using 4-0 Monocryl subcuticular suture, and Exofin glue was applied on top. The patient was awakened from anesthesia, extubated, and transferred to recovery. Implants Large left and right 3DMax mid mesh Estimated Blood Loss 5 Complications No immediate complications Condition Stable Disposition Same day
[2025-01-11] MEDS: fentaNYL CITRATE INJ (*CRX) 100 MCG/2 ML VIAL 25 MCG IV PUSH ×4 (11:28→11:40)
== END 2025-01-11 14:45 | disposition home or self-care (01) ==
PROVIDERS: PCP Internal Medicine; Visit Provider Surgery
PROC: 8E0Y4CZ Robotic Assisted Procedure of Lower Extremity, Percutaneous Endoscopic Approach (ICD-10-PCS; CPT 49650; principal; 2025-01-11 09:30)
DX: K40.20 Bilateral inguinal hernia, without obstruction or gangrene, not specified as recurrent (principal); Z79.82 Long term (current) use of aspirin
CPT/HCPCS: 49650; S2900; J0690; A9270; C1781; J1100; J1171; J1885; J2704; J3010; J7120

== ENCOUNTER 2025-05-02 08:33 | Emergency (ER) | payer MEDICARE, MEDICAID, SELFPAY ==
--- NOTE | ~2025-05-02 | CT_ITS ---
EXAMINATION: CTA brain carotid DATE: 05/02/2025 09:47 INDICATION: Vertigo. TECHNIQUE: Computed tomographic angiography (CTA) of the head was performed without and with 100 mL Omnipaque-350 intravenous contrast. CTA of the neck was performed with intravenous contrast. Automated exposure control and iterative reconstruction technique were employed. The dose-length product was 1727.65 mGy- cm. Maximum intensity projection and volume rendered 3D-reconstructions were created by the technologist on a separate workstation. COMPARISON: Brain MRI 05/27/2024 FINDINGS: HEAD CTA: There is an old infarct involving the left frontal lobe and left insula. There is a 2.6 x 2.3 cm calcified right parafalcine mass medial to the parietal lobe, consistent with a meningioma. There is no acute ischemic infarct or intracranial hemorrhage. The ventricles are normal in size. There is mucosal thickening in the paranasal sinuses. The orbits are normal. The mastoid air cells are normal. Left vertebral artery is dominant. There is no significant stenosis of basilar artery or the posterior cerebral arteries. The posterior communicating arteries are normal. There is no significant stenosis of the intracranial internal carotid arteries or anterior or middle cerebral arteries. Anterior communicating artery is normal. There is no aneurysm. NECK CTA: There are no pathologically enlarged lymph nodes. There is no significant stenosis of the vertebral arteries. There is mild plaque in the proximal internal carotid arteries. There is 0% stenosis of the proximal right internal carotid artery relative to normal distal artery lumen diameter (NASCET criteria). There is 0% stenosis of the proximal left internal carotid artery relative to normal distal artery lumen diameter. There is moderate cervical spondylosis. IMPRESSION: 1. 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 2. Stable 2.6 cm right parafalcine meningioma. 3. No aneurysm or significant intracranial arterial stenosis. 4. 0% stenosis of the proximal internal carotid arteries relative to normal distal artery lumen diameters (NASCET criteria). Reviewed, dictated and finalized at location [facility] IMPRESSION: 1. 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 2. Stable 2.6 cm right parafalcine meningioma. 3. No aneurysm or significant intracranial arterial stenosis. 4. 0% stenosis of the proximal internal carotid arteries relative to normal dis maida artery lumen diameters (NASCET criteria).
--- NOTE | 2025-05-02 08:38 | ECG_ITS ---
Test Date: 2025-05-02 08:40:44 Measurements Intervals Garibaldi Rate: 59 P: -85 NH: 157 QRS: 19 QRSD: 99 T: 56 QT: 411 QTc: 410 Interpretive Statements SINUS OR ECTOPIC ATRIAL BRADYCARDIA WITH SINUS ARRHYTHMIA CANNOT R/O SEPTAL INFARCT, AGE INDETERMINATE BORDERLINE ECG Compared to ECG 01/05/2025 12:45:20 NO SIGNIFICANT CHANGE Electronically Signed On 05-02-2025 09:34:41 LABORATORY TECH by Mike Bland D.O.
[2025-05-02 08:40] VITALS: BP 151/85; PULSE 60; RESP 12; TEMP 36.6; O2SAT 100
--- OUTSIDE RECORDS SUMMARY | 2025-05-02 08:50 | XMS_ITS | Continuity of Care Document ---
Author Organization [place] - [facility] [facility] Internal Med [address] [facility] [place] [address] Care Team Providers Care Workforce Consultant Name Role Phone TARA OSBORN Lens Edger GUANAKITO WARE Primary Care Provider ELENI PIZARRO Precision Crop Manager Assessment Encounter Date Assessment Date Assessment LastModified by Organization Details LastModified Time 04/12/2025 04/12/2025 01/25/2022: PSA 0.52 TSH/FT4/LIPID S/CBC: WNL VIT D 41.8 CMP: Bili T 1.40 11/25/2022: Labs stable 05/09/2023: PSA 0.55 VIT D 26.0 11/07/2023: PSA 0.57 BUN 21 03/08/2024: Stable 04/10/2024: metanpehrines : Neg 06/18/2024: [facility] Stable 11/29/2024: PSA 0.37 Bili T 1.3H 04/04/2025: Dr Ryan EDMOND T bili 1.3H VIT D 26L Not available 04/12/2025 11:25:32 Plan of Treatment Reminders Order Date Submit Date Provider Last Modified By Organization Details Last Modified Time Details Appointments Any 15 2025 10:30A M Guanakito renteria MD Not available Not available Not available Lab lipid panel, serum 2024 025 [email or web address] [facility] (Lab), [address] [place], [address], 04/25/2025 09:39:36 CBC w/ auto diff [address] (Lab), [address] [place], [address], 04/25/2025 09:39:36 CMP, serum or plasma [address] (Lab), [address] [place], [address], 04/25/2025 09:39:36 TSH, serum or plasma [address] (Lab), [address] [place], [address], 04/25/2025 09:39:36 vitamin D, 25-hydrox y, total, serum [address] (Lab), [address] [place], [address], 04/25/2025 09:39:36 Referral cardiolog ist referral - Please call patient to schedule an appointme nt. Thank you. 2024 [place], [address], [address], 04/12/2025 17:19:[address] referral - Please call patient to schedule an appointme nt. Thank you. 2024 025 [email or web address] [facility] - Neurology, [address] [place], [address], 04/12/2025 17:19:54 Procedures None recorded. Surgeries None recorded. Imaging None recorded. Medication Orders ergocalci ferol (vitamin D2) 1,250 mcg (50,000 unit) capsule 2024 [facility] [id number] [facility] [address] [place], [address], 04/12/2025 11:25:59 Patient TargetsNo targets recorded. Patient Instructions Encounter Date Encounter Id Patient Instructions Last Modified By Organization Details Last Modified Time 04/12/2025 [id number] dementia rating scale-2* Not available 04/12/2025 11:39:46 multi-dimensiona l health assessment questionnaire* Not available 04/12/2025 11:39:40 care plan* Not available 04/2025 11:39:34 advance care planning: care instructions [email or web address] Not available 04/12/2025 10:49:15 advance directiv es: care instructions [email or web address] 2 Not available 04/12/2025 10:49:14 [place] Advance Directives [email or web address] Not available 04/12/2025 10:49:15 Personalized Hea lth Plan and Screening Recommendations Advance Directives - Do you have one? Advance Directives - Do we have your advance directive on file in your health record? Primary Prevention/Interven tion (prevents or decreases the chance of common diseases from occurring) Smoking Risk: Alcohol Misuse Screening: Weight: Physical activity: Nutrition: Fall Risk (screened today): Vaccines Pneumococcal: Influenza: Chronic Disease Risks Stroke: Active diagnosis, Continue current treatment plan Heart Attack: Active diagnosis, Continue current treatment plan Clogging of the Arteries: Active diagnosis, Continue current treatment plan Diabetes: Active diagnosis, Continue current treatment plan Secondary Prevention/Interven tion (detects treatable diseases before they may cause symptoms, disability, or ) Prostate Cancer Screening: Colon Cancer Screening: Date Screening Last Performed: Eye Disease Screening: Your next exam in: Dementia Risk: Depression Screening: Active diagnosis, Continue current treatment plan [email or web address] Not available 04/12/2025 10:33:32 Reason for Referral Neurologist Referral for Cer ebrovascular accident Please call patient to schedule an appointment. Thank you. Referring Physician: Guanakito Ware, Internal Medicine, Encounter Date: 04/12/2025 Precision Crop Manager Referral for Hi story of repair of mitral valve Please call patient to schedule an appointment. Thank you. Referring Physician: Guanakito Ware, Internal Medicine, Encounter Date: 04/12/2025 Results Created Date Observation Date Name Description Value Unit Range Abnormal Flag Note LastModifiedBy Organization Detail LastModifiedTime Result Notes None recorded. 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 4 11:22:28 Dizziness 686960260 Active 2023 SENTHIL Shanks null, [place] [facility] 4 11:23:15 Acute urinary tract infection 428203189 Active 2023 Estefanía Morales MA null, [place] [facility] 4 14:15:55 Chronic depression 567600541 Active 2023 Guanakito lee MD [address], [place], [address] , [employer] [facility] [employer] 4 10:58:52 Essential hypertensi on 28445075 Active 2023 Guanakito lee MD [address] [facility] [address] [place] [address], [place], [address] , [employer] [facility] [employer] [facility] 4 12:32:38 Pheochromo cytoma 069073360 Active 2023 Guanakito lee MD [address] [facility] [address] [facility] [address], [place], [address] , [employer] [facility] [employer] 4 12:34:21 Hyperbilir ubinemia 75280426 Active 2024 Guanakito lee MD [address] [facility] [address] [place] [address], [place], [address] , [employer] [facility] [employer] 5 10:40:19 Left inguinal pain 2726624557573 9104 Active 2024 Guanakito lee MD [address] [facility] [address] [place] [address], [place], [address] , [employer] [facility] [employer] 5 11:00:47 Problem Notes None recorded. Procedures Surgical History Date Name Laterality Status Provider Name and Address Organization Details Recorded Time 5 Medicare Wellness CPT Code, subsequent completed Gabbi Arias [employer] [facility] [employer] 04/12/2025 10:33:32 4 Medicare Wellness CPT Code, subsequent completed Sameer Camacho LPN [employer] [facility] [employer] 11/07/2023 09:00:46 4 Advanced Care Planning completed Sameer Camacho LPN [employer] [facility] [employer] 11/11/2023 11:00:10 open heart surgery completed Not Available [facility] 07/31/2022 23:57:35 Imaging Results None recorded. Procedure Notes None recorded. Medical Equipment None Reported. Allergies No known drug allergies Medications Name Sig Start Date Stop Date Status Note LastModified by Organization Details LastModified Time atorvastatin 40 mg tablet TAKE 1 TABLET BY MOUTH EVERY DAY active Not Available Not Available No t Available atorvastatin 80 mg tablet Take 1 tablet every day by oral route. 11/22 completed Not Available Not Available Not Available citalopram 10 mg tablet TAKE 1 TABLET BY MOUTH EVERY DAY active Not Available Not Available No t Available hydrocodone 5 mg-acetamino phen 325 mg tablet TAKE 1 TABLET BY MOUTH EVERY 4 HOURS NEEDED FOR PAIN active Not Available Not Available No t Available ciprofloxaci n 500 mg tablet TAKE 1 TABLET BY MOUTH EVERY 12 HOURS FOR 7 DAYS 03/09 completed Not Available Not Available Not Available ergocalcifer ol (vitamin D2) 1,250 mcg (50,000 unit) capsule Take 1 capsule weekly for 8 weeks 2024 active Not Available Not Available Not Avai lable amoxicillin 875 mg-potassium clavulanate 125 mg tablet [...] (BMI) Body weight Body temperature Heart rate Respiratory rate Oxygen saturation Systolic And Diastolic Provider Name and Address Organization Details Last Updated DateTime 5 182.88 cm 31.2 kg/m2 069221. 25 g 97.6 [degF] 64 /min 18 /min 95 % 140/80 mm[Hg] Gabbi Arias [place] - [facility] [employer] [facility] 5 10:52:52 Social History Question Answer Notes LastModified by Organization Details LastModified Time Tobacco Smoking Status Never Smoker Not Available [facility] 07/31/2022 23:57:12 Do You Have An Advance Directive? No MIGRATION.030 [id number] Information not available 07/31/2022 Do You Wear A Helmet When Biking? No Doews Not Bike [email or web address] Information not available 11/11/2023 Are You Blind Or Do You Have Difficulty Seeing? No MIGRATION.[id number] Information not available 07/31/2022 What Is Your Level Of Caffeine Consumption? None MIGRATION.030 703025 Information not available 07/31/2022 In The 14 Days Before Symptom Onset, Have You Had Close Contact With A Laboratory-confi rmed COVID-19 While That Case Was Ill? No MIGRATION.030 065322 Information not available 07/31/2022 In The 14 Days Before Symptom Onset, Have You Had Close Contact With A Person Who Is Under Investigation For COVID-19 While That Person Was Ill? No MIGRATION.030 815351 Information not available 07/31/2022 Are You Deaf Or Do You Have Serious Difficulty Hearing? No MIGRATION.0301 993683 Information not available 07/31/2022 What Type Of Diet Are You Following? REGULAR MIGRATION.030 056691 Information not available 07/31/2022 What Is The Highest Grade Or Level Of School You Have Completed Or The Highest Degree You Have Received? [id number] MIGRATION.030 520822 Information not available 07/31/2022 Have There Been Any Changes To Your Family Or Social Situation? No MIGRATION.030 913181 Information not available 07/31/2022 What Is The Fluoride Status Of Your Home? Unknown MIGRATION.030 638502 Information not available 07/31/2022 Are There Any Guns Present In Your Home? Yes MIGRATION.030 128304 Information not available 07/31/2022 Do You Use Insect Repellent Routinely? No MIGRATION.0301 390076 Information not available 07/31/2022 Where Do You Live? SingleLevelHouse MIGRATION.030 220120 Information not available 07/31/2022 Presence Of Domestic Violence No [email or web address] Information not available 11/11/2023 Guns Present In The Home? No [email or web address] Information not available 11/11/2023 Are You Able To Care For Yourself? Yes [email or web address] Information not available 11/11/2023 Are You Blind Or Do Yo Have Difficulty Seeing? No Information not available 11/11/2023 Are You Deaf Or Do You Have Serious Difficulty Hearing? No [email or web address] Information not available 11/11/2023 General Stress Level? Moderate [email or web address] Information not available 11/11/2023 Live Alone Of With Others? With Others [email or web address] Information not available 11/11/2023 Do You Have A Medical Power Of Sales And Service Consultant? No MIGRATION.0301 610568 Information not available 07/31/2022 What Was The Date Of Your Most Recent Tobacco Screening? 11/30/2024 [email or web address] Information not available 11/30/2024 Do You Have Any Pets? Yes Cat, Dog Outside Information not available 11/11/2023 What Is Your Relationship Status? MIGRATION.0301 [id number] Information not available 07/31/2022 Do You Use Your Seat Belt Or Car Seat Routinely? Yes MIGRATION.0301 820471 Information not available 07/31/2022 Do You Have Smoke And Carbon Monoxide Detectors In Your Home? Yes MIGRATION.0301 611742 Information not available 07/31/2022 Are You Passively Exposed To Smoke? No MIGRATION.0301 058446 Information not available 07/31/2022 Are There Any Smokers In Your House? No MIGRATION.0301 417170 Information not available 07/31/2022 What Types Of Sporting Activities Do You Participate In? None [email or web address] Information not available 11/11/2023 Do You Use Sunscreen Routinely? No MIGRATION.0301 612183 Information not available 07/31/2022 Has Tobacco Cessation Counseling Been Provided? No N/a MIGRATION.0301 383436 Information not available 07/31/2022 Have You Recently Traveled Abroad? No MIGRATION.0301 992981 Information not available 07/31/2022 Do You Have Difficulty Walking Or Climbing Stairs? No MIGRATION.0301 252512 Information not available 07/31/2022 Do You Have Any Dietary Restrictions? No MIGRATION.0301 083581 Information not available 07/31/2022 Sex: Male Functional Status Question Answer Note LastModified by Organizat ion Details LastModified Time Do you use any illicit or recreational drugs? No MIGRATION.[id number] 026 Information not available 07/31/2022 Do you or have you ever used any other forms of tobacco or nicotine? No MIGRATION.4761314 026 Information not available 07/31/2022 What is your level of alcohol consumption? None MIGRATION.0419734 026 Information not available 07/31/2022 Are you currently employed? No Information not available 11/11/2023 Do you have transportation difficulties? No MIGRATION.8041533 026 Information not available 07/31/2022 Are you able to walk independently without assistance or assistive devices? YESWOREST MIGRATION.2894349 026 Information not available 07/31/2022 Do you have difficulty doing errands alone? No MIGRATION.4344763 026 Information not available 07/31/2022 Are you able to care for yourself independently? Yes MIGRATION.9333558 026 Information not available 07/31/2022 Do you have difficulty dressing, bathing, grooming, or toileting? No MIGRATION.6812292 026 Information not available 07/31/2022 What is your exercise level? None MIGRATION.3195475 026 Information not available 07/31/2022 Mental Status Question Answer Note LastModified by Organizat ion Details LastModified Time Do you feel stressed (tense, restless, nervous, or anxious, or unable to sleep at night)? [id number] [email or web address] Information not available 11/11/2023 Do you have difficulty concentrating, remembering or making decisions? No MIGRATION.15338314 26 Information not available 07/31/2022 Family History Relationship Description Onset Age of this Age Resolved Age Notes LastModified by Organization Details LastModified Time Father No current problems or disability MIGRATION.324 [id number] Not available 07/31/2022 23:57:35 Mother No current problems or disability MIGRATION.575 7310740 Not available 07/31/2022 23:57:36 Medical History Condition [...] HAVE YOU BEEN HOSPITALIZED OR SEEN IN [facility] IN THE PAST YEAR ? N [...] Details Recorded Time Influenza, high-dose, quadrivalent, PF 2 completed Not Available [facility] 08/01/2022 00:00:06 Influenza, high-dose, quadrivalent, PF 3 completed Eva Hart RMA null, [facility] 05/13/2023 10:34:51 Influenza, split virus, quadrivalent, preservative 9 completed Eva Hart RMA null, [facility] 11/30/2024 10:20:18 Influenza, split virus, quadrivalent, preservative 7 completed Eva Hart RMA null, [facility] 11/30/2024 10:20:18 Influenza, split virus, quadrivalent, preservative 0 completed Eva Hart RMA null, [facility] 11/30/2024 10:20:18 influenza, intradermal, quadrivalent, preservative free 6 completed TANNER NegronA null, [facility] 11/30/2024 10:20:18 Influenza, high-dose, quadrivalent, PF 2 completed Eva Hart RMA null, [facility] 11/30/2024 10:20:18 COVID-19, mRNA, LNP-S, PF, 30 mcg/0.3 mL dose 1 completed Eva Hart RMA null, [facility] 11/30/2024 10:20:18 COVID-19, mRNA, LNP-S, PF, 30 mcg/0.3 mL dose 1 completed Eva Hart RMA null, [facility] 11/30/2024 10:20:18 pneumococcal polysaccharide PPV23 9 completed Eva Pabloham, RMA null, [facility] 11/30/2024 10:20:18 Tdap 5 completed Eva Hart RMA null, [facility] 11/30/2024 10:20:18 Tdap 5 completed Eva Hart RMA null, [facility] 11/30/2024 10:20:18 Pneumococcal conjugate PCV 13 8 completed Eva Hart RMA null, [facility] 11/30/2024 10:20:18 zoster live 5 completed Eva Hart RMA null, [facility] 11/30/2024 10:20:18 zoster live 5 completed Eva Hart RMA null, [facility] 11/30/2024 10:20:18 Influenza, high-dose, trivalent, PF 5 completed Eva Hart RMA null, [facility] 11/30/2024 10:20:18 Influenza, high-dose, trivalent, PF 9 completed Eva Hart RMA null, [facility] 11/30/2024 10:20:18 Influenza, high-dose, trivalent, PF 5 completed Gabbi Hugo null, [facility] 04/12/2025 14:31:32 Influenza, high-dose, trivalent, PF 4 completed Eva Hart RMA null, [facility] 03/09/2024 10:53:30 Past Encounters Encounter ID Performer Location Encounter Start Date Encounter Closed Date Diagnosis/Indication Diagnosis SNOMED-CT Code Diagnosis ICD10 Code Diagnosis IMO Codes Diagnosis Note [id number] Guanakito lee MD [facility] Internal Med [address] [facility], [address] [place] [address] 04/12/2025 10:16:55 04/12/2025 11:37:36 Essential hypertension 02295564 I10 ECHO 09/03/2024 : [facility] BP logs 140-150/70 -80sGet labsDr Juarez last OV 11/20/2023 , next in 6 months, referred 07/13/2024 Vertigo 807470568 R42 Occasional ly when he turns his head, does not want any meds, agrees to see ENT OV 01/31/2022 :No complaints now OV 04/08/2024 : Get a referral to neurology and cardiology Cerebrovas cular accident [id number] I63.9 He did have this in 2013, he has no residual effects, states that he is very 'strong'As per daughter 03/09/2024 , she did not want him to see Dr Griffiths, she wants a referral to [facility] neurology Again advised 04/08/2024 , 11/30/2024 , 04/12/2025 to see neurology! Pheochromocytoma 5099175 09 D35.00 As per daughter, she would like to get tested for this d/t BP fluctuatio ns, he has also been dizzy OV 07/13/2024 : Today states that all his symptoms are resolved, he does not want to see nephrology Hyperlipidemia 77701231 E78.5 On ASAOn atorvastat in 40mg dailyGet labs Screening - NAD 35056925 3 Z13.9 C-scope: Old records from PCP, Cologuard 12/16/2018 negativeCo loguard 01/07/2022 : NegCologua rd 01/05/2025 : Neg Get yearly flu shot, declined today 03/13/2021 UTD tdap in 2014 as per his hxUTD PCV #13 #23 as per his hxCan do shingrix vaccineUTD on COVID 19 vaccine doneCan do RSV vaccine RTC in 4 monthsDo labsER if worseHe and his did verbalize his understand ing of the above Vitamin D deficiency 347 72303 E55.9 Dyspnea on exertion 6084 5006 R06.09 Has noted this, very concerned as he does live by the [place], and has noted dust in his back yardGet CT chest OV 01/31/2022 :XR Chest 12/05/2021 : Neg, declines any CT chest now, no complaints Intracrani al meningioma 261008397 D32.[address] Parson [facility] 2.5X 2.4X 2.2 cm 10/17/17/ p MRI 04/18/2021 , get a referral to [facility] has adamantly declined, states that he is doing well, has no symptoms Does not want to do any more MRI today 07/30/2022 , 05/13/2023 , he states that he did have a series of MRIs in [facility] and they were all the 'same'No complaints at this time S/p MRI 05/27/2024 2.6cm massAdvise d to see his neurologis t 11/30/2024 History of repair of mitral valve 019571080 Z98.890 Hx of MVR done by Dr Aguilar as per his historyNee ds to see [facility] Dr Pizarro whom he has seen in the pastReferr ed 03/13/2021 , 06/21/21Ol d records from prior PCPECHO 07/17/15, 07/22/16, 10/09/17 08/10/2021 : Dr Pizarro, f/u in one year ECHO 08/09/2022 : Dr Reyes 08/22/2023 : Dr Geovany Pizarro: 08/22/2023 : F/u in one yearDr Juarez 11/20/2023 : F/u in 6 montsDr Juarez: 08/20/2024 : F/u in 6 months Visual impairment 231140 003 H54.7 Sees his eye Total bili schmitz above reference range 5149858165 78432 R17 MildUS liver 02/14/2022 : Neg Chronic depression 03322 0009 F32.A Used to be on citalopram , as per daughter he does have depression , the patient himself denies any suicidal or homicidal ideation or attempts, states that he is very happy to be working in the yard and also fishingHe is agreeable to restart the citalopram , all side effects explained to him Left inguinal pain 48078 39625 4015003 R10.32 417479 Likely has herniaGet referral to G surgery Dr Dinero last OV 01/21/2025 , f/u PRN Adult heal th examination 414380234 Z00.00 Screening for disorder 758183801 Z13.9 History of repair of inguinal hernia 384682685 Z98.890 Z87.19 [id number] S/p surgery Dr Abraham last OV 01/21/2025 Health Concerns Section Related Observation LastModified by Organization Detai ls LastModified Time None Recorded Concern Status LastModified by Organization Details LastModified Time None Recorded Payers Encounter Date Sequence Insurance Name Policy Number Policy H[place] Covered Member ID H[place] Member ID Guarantor Name 04/12/2025 1 [facility] (MEDICARE REPLACEMENT/A DVANTAGE - PPO) [id number] Nirav Kearns [id number] Nirav Kearns 04/12/2025 2 [place] [facility] [place] OF PUBLIC AID Nirav Kearns [id number] Nirav Kearns Notes Date Note Type Note Provider Name and Address Organization Details Recorded Time 04/12/2025 text/html OV 03/13/2021:Here to establish carePast Hx:HLDCVAMVRMening iomaReviewed social family and surgical historyHe [...] no chest pain or SOB, no CHAN OV 07/13/2024: Here for his f/u apt, he is doing well today, he is here with his OV 11/30/2024: Here for his f/u apt, he feels well, concerned that he may have a L hernia, no pain, some swelling, no N/V or diarrhea or constipation, no redness, here with his OV 04/12/2025: Here for his f/u apt and his MWV, is doing well today, he did have his hernia surgery, he is here with his Guanakito Ware MD [address] [facility] [facility] [address], [place], [address], [place] [facility] [employer] 04/24/2025 15:11:37
--- OUTSIDE RECORDS SUMMARY | 2025-05-02 08:50 | XMS_ITS | Clinical Summary ---
Author Organization [facility] Address [address] [place] [address] Care Team Providers Care Drivematic Machine Operator Name Role Phone Devin Whitaker MD Primary Care Provider Source Comments [facility],non-owned Affiliates and Associated Physician Practices is amultiple site organization consisting of ambulatory clinics and hospital sitesin [place], [place], [place] and [place]. This disclosure is being madepursuant to the Care Everywhere program and may not contain all information available regarding this patient. Last updated 18.[facility] Medications * Be aware that medications may [...] on file Legal Sex Male 5:51 PM STEEL CHECKER Gender Identity Not on file Sexual Orientation Not on file Last Filed Vital Signs Vital Sign Reading Time Taken Comments Blood Pressure 114/67 07/07/2017 8:35 AM STEEL CHECKER Pulse 55 07/07/2017 8:35 AM STEEL CHECKER Temperature 36.4 C (97.5 F) 07/07/2017 8:35 AM STEEL CHECKER Respiratory Rate - - Oxygen Saturation 100% 07/07/2017 8:35 AM STEEL CHECKER Inhaled Oxygen Concentration - - Weight 101.6 kg (224 lb) 07/07/2017 8:35 AM STEEL CHECKER Height 182.9 cm (6') 07/07/2017 8:35 AM STEEL CHECKER Body Mass Index 30.38 07/07/2017 8:35 AM STEEL CHECKER Plan of Treatment Health Maintenance Due Date [...] 2002 ZOSTER VACCINE (1 of 2) 2002 DEPRESSION SCREENING 06/02/2024 COVID-19 VACCINE (1 - 2024-2 6 season) 2025 INFLUENZA VACCINE (#1) 2025 Respiratory Syncytial Virus [...] age to complete this topic Care Teams Drivematic Machine Operator Relationship Specialty Start Date End Date Devin Whitaker MD [address] [place], [place] [id number] PCP - General 06/19/17
--- OUTSIDE RECORDS SUMMARY | 2025-05-02 08:51 | XMS_ITS | Data Portability ---
Author Organization [place] [facility] [email or web address], Main Office Address [address] [place] [address] Care Team Providers Care Asbestos Cement Sheet Supervisor Name Role Phone TARA OSBORN Cancer Program Director GUANAKITO WARE Primary Care Provider ELENI PIZARRO Hospital Nursing Assistant Assessment Encounter Date Assessment Date Assessment LastModified by Organization Details LastModified Time 03/09/2024 03/09/2024 01/25/2022: PSA 0.52 TSH/FT4/LIPID S/CBC: WNL VIT D 41.8 CMP: Bili T 1.40 11/25/2022: Labs stable 05/09/2023: PSA 0.55 VIT D 26.0 11/07/2023: PSA 0.57 BUN 21 03/08/2024: Stable 45 minutes spent with him his and his daughter, labs reviewed, referral placed, discussed his depression Not available 03/09/2024 11:09:03 07/13/2024 07/13/2024 01/25/2022: PSA 0.52 TSH/FT4/LIPID S/CBC: WNL VIT D 41.8 CMP: Bili T 1.40 11/25/2022: Labs stable 05/09/2023: PSA 0.55 VIT D 26.0 11/07/2023: PSA 0.57 BUN 21 03/08/2024: Stable 04/10/2024: metanpehrines : Neg 06/18/2024: [facility] Stable Not available 07/13/2024 11:08:12 11/30/2024 11/30/2024 01/25/2022: PSA 0.52 TSH/FT4/LIPID S/CBC: WNL VIT D 41.8 CMP: Bili T 1.40 11/25/2022: Labs stable 05/09/2023: PSA 0.55 VIT D 26.0 11/07/2023: PSA 0.57 BUN 21 03/08/2024: Stable 04/10/2024: metanpehrines : Neg 06/18/2024: [facility] Stable 11/29/2024: PSA 0.37 Bili T 1.3H Not available 11/30/2024 10:36:55 04/12/2025 04/12/2025 01/25/2022: PSA 0.52 TSH/FT4/LIPID S/CBC: [...] Time Details Appointments Any 15 2025 10:30A Kika renteria MD Not available Not available Not available Lab lipid panel, serum [address] (Lab), [address] [place], [address], 04/25/2025 09:39:36 CBC w/ auto diff [email or web address] (Lab), [address] [place], [address], 04/25/2025 09:39:36 CMP, serum or plasma [address] (Lab), [address] [place], [address], 04/25/2025 09:39:36 TSH, serum or plasma [address] (Lab), [address] [place], [address], 04/25/2025 09:39:36 vitamin D, 25-hydrox y, total, serum [address] (Lab), [address] [place], [address], 04/25/2025 09:39:36 vitamin D, 25-hydrox y, total, serum 2024 025 [facility] (Lab), [address] [place], [address], 11/30/2024 18:45:41 lipid panel, serum 2024 025 [facility] (Lab), [address] [place], [address], 11/30/2024 18:45:42 CBC w/ auto diff 2024 025 [facility] (Lab), [address] [place], [address], 11/30/2024 18:45:41 CMP, serum or plasma 2024 025 [facility] (Lab), [address] [place], [address], 11/30/2024 18:45:41 TSH, serum or plasma 2024 025 [facility] (Lab), [address] [place], [address], 11/30/2024 18:45:41 lipid panel, serum [address] (Lab), [address] [place], [address], 01/10/2025 10:04:21 CBC w/ auto diff [address] (Lab), [address] [place], [address], 01/10/2025 10:04:21 CMP, serum or plasma [address] (Lab), [address] [place], [address], 01/10/2025 10:04:22 TSH, serum or plasma [address] (Lab), [address] [place], [address], 01/10/2025 10:04:22 PSA, total, serum or plasma [address] (Lab), [address] [place], [address], 01/10/2025 10:04:22 vitamin D, 25-hydrox y, total, serum [address] (Lab), [address] [place], [address], 01/10/2025 10:04:21 unlisted lab - metanephr jelena frx plasma [address] (Lab), [address] [place], [address], 10/07/2024 12:33:22 metanephr jelena, fractiona marcus, quantitat lenore, 24-hour urine [address] (Lab), [address] [place], [address], 04/15/2024 16:04:00 lipid panel, serum 2023 024 [facility] (Lab), [address] [place], [address], 03/09/2024 17:08:36 CBC w/ auto diff 2023 024 [facility] (Lab), [address] [place], [address], 03/09/2024 17:08:38 CMP, serum or plasma 2023 024 [facility] (Lab), [address] [place], [address], 03/09/2024 17:08:37 TSH, serum or plasma 2023 024 [facility] (Lab), [address] [place], [address], 03/09/2024 17:08:39 vitamin D, 25-hydrox y, total, serum [address] (Lab), [address] [place], [address], 09/07/2024 08:28:25 Referral cardiolog ist referral - Please call patient to schedule an appointme nt. Thank you. 2024 025 [email or web address] [place], [address], [address], [address], 04/12/2025 17:19:[address] referral - Please call patient to schedule an appointme nt. Thank you. 2024 025 [email or web address] [facility] Neurology, [address] [place], [address], 04/12/2025 17:19:54 cardiolog ist referral - Please call patient to schedule an appointme nt. Thank you. 2024 025 [place], [address], [address], [place], [address], 03/07/2025 15:24:[address] referral - Please call patient to schedule an appointme nt. Thank you. 2024 025 [email or web address] [facility] Neurology, [address] [place], [address], 03/07/2025 15:24:36 general surgeon referral - Please call patient to schedule an appointme nt. Thank you. 2024 025 MILTON Dinero , [address], [address], [place], [address], 12/17/2024 12:16:55 cardiolog ist referral - Please call patient to schedule an appointme nt. Thank you. 2024 025 [place], [address] , [address], [place], [address], 09/30/2024 15:23:[address] referral - Please call patient to schedulen an appointme nt. Thank you. 2024 025 [email or web address] [facility] - Neurology, [address] [place], [address], 02/14/2025 12:58:52 cardiolog ist referral 2023 024 [email or web address] Edwin Garcia MD, [address] [facility], [address], [place], [address], 04/12/2024 11:57:15 nephrolog ist referral - Please call patient to schedule. 2023 024 [email or web address] Galileo Davis MD (Nephrology, [address], [address], [place], [address], 01/18/2025 08:32:54 cardiolog ist referral 2023 024 [email or web address] [place], [address], [address], [place], [address], 03/10/2024 08:40:[address] referral - Please call patient to schedule. 2023 024 [email or web address] [facility] - Neurology, [address] [facility], [place], [address], 11/09/2024 10:00:03 Procedures None recorded. Surgeries None recorded. Imaging MRI, brain, w/o contrast - Please call patient to schedule. 2023 024 [email or web address] [facility], [address] [place] [address], [address], 05/17/2024 09:13:24 Medication Orders ergocalci ferol (vitamin D2) 1,250 mcg (50,000 unit) capsule 2024 025 [facility] [address], [address], 04/12/2025 11:25:59 citalopra m 10 mg tablet 2024 025 [facility] [address], [address], 07/13/2024 11:07:37 atorvasta tin 40 mg tablet 2024 025 [email or web address] la2 [facility] [address], [address], 07/13/2024 11:07:37 citalopra m 10 mg tablet 2023 024 [facility] [address] In [facility], [address] [place], [address], 03/09/2024 11:00:44 Patient TargetsNo targets recorded. Patient Instructions Encounter Date Encounter Id Patient Instructions Last Modified By Organization Details Last Modified Time 04/12/2025 [id number] dementia rating scale-2* [email or web address] Not available 04/12/2025 11:39:46 multi-dimensiona l health assessment questionnaire* [email or web address] Not available 04/12/2025 11:39:40 care plan* [email or web address] Not available 04/2025 11:39:34 advance care planning: care instructions [email or web address] 2 Not available 04/12/2025 10:49:15 advance directiv es: care instructions [email or web address] 2 Not available 04/12/2025 10:49:14 [place] Advance Directives [facility] Not available 04/12/2025 10:49:15 Personalized [facility] lt Plan and Screening Recommendations Advance Directives - [...] Not available 04/12/2025 10:33:32 Reason for Referral Hospital Nursing Assistant Referral for Hi story of repair of mitral valve Referring Physician: Guanakito Ware, Internal Medicine, Encounter Date: 03/09/2024 Neurologist Referral for Cer ebrovascular accident Please call patient to schedule. Referring Physician: Lee Ann Mai Medicine, Encounter Date: 03/09/2024 Hospital Nursing Assistant Referral for Es sential hypertension Referring Physician: Guanakito Ware Internal Medicine, Encounter Date: 04/08/2024 Outpatient Receptionist Referral for Ph eochromocytoma Please call patient to schedule. Referring Physician: Lee Ann Mai Medicine, Encounter Date: 04/08/2024 Neurologist Referral for Cer ebrovascular accident Please call patient to schedulen an appointment. Thank you. Referring Physician: Lee Ann Mai, Encounter Date: 07/13/2024 Hospital Nursing Assistant Referral for Hi story of repair of mitral valve Please call patient to schedule an appointment. Thank you. Referring Physician: Lee Ann Mai, Encounter Date: 07/13/2024 Neurologist Referral for Cer ebrovascular accident Please call patient to schedule an appointment. Thank you. Referring Physician: Lee Ann Mai Medicine, Encounter Date: 11/30/2024 Hospital Nursing Assistant Referral for Hi story of repair of mitral valve Please call patient to schedule an appointment. Thank you. Referring Physician: Lee Ann Mai, Encounter Date: 11/30/2024 General Surgeon Referral for Left inguinal pain Please call patient to schedule an appointment. Thank you. Referring Physician: Lee Ann Mai, Encounter Date: 11/30/2024 Neurologist Referral for Cer ebrovascular accident Please call patient to schedule an appointment. Thank you. Referring Physician: Lee Ann Mai, Encounter Date: 04/12/2025 Hospital Nursing Assistant Referral for Hi story of repair of mitral valve Please call patient to schedule an appointment. Thank you. Referring Physician: Lee Ann Mai, Encounter Date: 04/12/2025 Results Created Date Observation Date Name Description Value Unit Range Abnormal Flag Note LastModifiedBy Organization Detail LastModifiedTime 03/08/20 24 03/08/2024 LIPID PANEL cholesterol 108 mg/dL 140-19 9 low NIH JUAN NSUS RECOM MENDA TION FOR AGUSTINA STERO L: ADULT CHILD LOW RISK: <200 <170 BORDE RLINE : <200- 239 ----- HIGH RISK: >240 >[address] [facility] (Lab) [address] [place], [address], 03/08/2024 11:06:54 03/08/2003/08/2024 LIPID PANEL triglyceride s 117 mg/dL 0-150 NIH JUAN NSUS REPOR T RECOM MENDA TION FOR TRIGL YCERI TAY: ADULT CHILD LOW RISK: <150 ----- BODER LINE: 150-1 99 ----- HIGH RISK: >200 ----- Not [address] [facility] (Lab) [address] [place], [address], 03/08/2024 11:06:54 03/08/2003/08/2024 LIPID PANEL HDL cholesterol 55 mg/dL 40- Not Available [facility] (Lab) [address] [place], [address], 03/08/2024 11:06:54 03/08/20 24 03/08/2024 LIPID PANEL [...] WILL NOT BE REPOR MARCUS. Not Available [facility] (Lab) [address] [place], [address], 03/08/2024 11:06:54 03/08/20 24 03/08/2024 COMPR EHENS LENORE METAB OLIC PANEL sodium 137 mmol/ L 137-14 5 Not Available [facility] (Lab) [address] [place], [address], 03/08/2024 11:06:59 03/08/2003/08/2024 COMPR EHENS LENORE METAB OLIC PANEL potassium 4.9 mmol/ L 3.5-5. 1 Not Available [facility] (Lab) [address] [place], [address], 03/08/2024 11:06:59 03/08/2003/08/2024 COMPR EHENS LENORE METAB OLIC PANEL chloride 103 mmol/ L 98-107 Not Available [facility] (Lab) [address] [place], [address], 03/08/2024 11:06:59 03/08/2003/08/2024 COMPR EHENS LENORE METAB OLIC PANEL carbon dioxide 31 mmol/ L 22-30 high Not Available [facility] (Lab) [address] [place], [address], 03/08/2024 11:06:59 03/08/2003/08/2024 COMPR EHENS LENORE METAB OLIC PANEL anion gap 7.9 mmol/ L 14-22 low Not Available [facility] (Lab) [address] [place], [address], 03/08/2024 11:06:59 03/08/2003/08/2024 COMPR EHENS LENORE METAB OLIC PANEL glucose 96 mg/dL 70-99 Not Available [facility] (Lab) [address] [place], [address], 03/08/2024 11:06:59 03/08/2003/08/2024 COMPR EHENS LENORE METAB OLIC PANEL BUN 12 mg/dL 8-19 Not Available [facility] (Lab) [address] [place], [address], 03/08/2024 11:06:59 03/08/20 24 03/08/2024 COMPR EHENS LENORE METAB OLIC PANEL creatinine 0.96 mg/dL 0.66-[address] [facility] (Lab) [address] [place], [address], 03/08/2024 11:06:59 03/08/20 24 03/08/2024 COMPR EHENS LENORE METAB OLIC PANEL GFR >60 Refer ence Range : [place] ge GFR Healt hy Adult : >60 [...] or ethni c subgr oups, such as Hisnd nics. Outsi de the valid ated ave [...] s/kdo qi/gf r_cal culat or Not Available [facility] (Lab) [address] [place], [address], 03/08/2024 11:06:59 03/08/20 24 03/08/2024 COMPR EHENS LENORE METAB OLIC PANEL alkaline phosphatase 40 U/L 38-126 Not Available [facility] (Lab) [address] [place], [address], 03/08/2024 11:06:59 03/08/2003/08/2024 COMPR EHENS LENORE METAB OLIC PANEL alanine aminotransfe rase 32 U/L 0-50 Not Available [facility] (Lab) [address] [facility] [place], [address], 03/08/2024 11:06:59 03/08/2003/08/2024 COMPR EHENS LENORE METAB OLIC PANEL aspartate aminotransfe rase 29 U/L 15-46 Not Available [facility] (Lab) [address] [place], [address], 03/08/2024 11:06:59 03/08/2003/08/2024 COMPR EHENS LENORE METAB OLIC PANEL bilirubin, total 1.30 mg/dL 0.20-[address] [facility] (Lab) [address] [place], [address], 03/08/2024 11:06:59 03/08/2003/08/2024 COMPR EHENS LENORE METAB OLIC PANEL calcium 9.8 mg/dL 8.4-[address] [facility] (Lab) [address] [place], [address], 03/08/2024 11:06:59 03/08/2003/08/2024 COMPR EHENS LENORE METAB OLIC PANEL total protein 7.0 g/dL 6.3-8. [address] [facility] (Lab) [address] [place], [address], 03/08/2024 11:06:59 03/08/2003/08/2024 COMPR EHENS LENORE METAB OLIC PANEL albumin 4.1 g/dL 3.0-4. [address] [facility] (Lab) [address] [place], [address], 03/08/2024 11:06:59 03/08/2003/08/2024 COMPR EHENS LENORE METAB OLIC PANEL globulin 2.9 g/dL 2.6-4. [address] [facility] (Lab) [address] [place], [address], 03/08/2024 11:06:59 03/08/2003/08/2024 COMPR EHENS LENORE METAB OLIC PANEL A/G ratio 1.4 ratio 1.0-2. [address] [facility] (Lab) [address] [place], [address], 03/08/2024 11:06:59 03/08/2003/08/2024 CBC/C OMPLE TE BLD COUNT W/DIF F white blood cells 6.2 x10'3 /uL 4.2-10 .8 Not Available [facility] (Lab) [address] [place], [address], 03/08/2024 11:32:30 03/08/2003/08/2024 CBC/C OMPLE TE BLD COUNT W/DIF F red blood cells 5.18 x10'6 /uL 4.10-[address] [facility] (Lab) [address] [place], [address], 03/08/2024 11:32:30 03/08/20 24 03/08/2024 CBC/C OMPLE TE BLD COUNT W/DIF F hemoglobin 15.6 g/dL 13.2-[address] [facility] (Lab) [address] [place], [address], 03/08/2024 11:32:30 03/08/20 24 03/08/2024 CBC/C OMPLE TE BLD COUNT W/DIF F hematocrit 47.4 % 39.3-[address] [facility] (Lab) [address] [facility] [place], [address], 03/08/2024 11:32:30 03/08/2003/08/2024 CBC/C OMPLE TE BLD COUNT W/DIF F mean red cell volume 91.5 fL 80.0-[address] [facility] (Lab) [address] [place], [address], 03/08/2024 11:32:30 03/08/2003/08/2024 CBC/C OMPLE TE BLD COUNT W/DIF F mean red cell hemoglobin 30.1 pg 27.0-[address] [facility] (Lab) [address] [place], [address], 03/08/2024 11:32:30 03/08/20 24 03/08/2024 CBC/C OMPLE TE BLD COUNT W/DIF F mean RBC HGB concentratio n 32.9 g/dL 31.0-[address] [facility] (Lab) [address] [place], [address], 03/08/2024 11:32:30 03/08/20 24 03/08/2024 CBC/C OMPLE TE BLD COUNT W/DIF F red cell distribution width 13.1 % 11.8-[address] [facility] (Lab) [address] [place], [address], 03/08/2024 11:32:30 03/08/20 24 03/08/2024 CBC/C OMPLE TE BLD COUNT W/DIF F platelets 204 x10'3 /uL 150-[address] [facility] (Lab) [address] [place], [address], 03/08/2024 11:32:30 03/08/20 24 03/08/2024 CBC/C OMPLE TE BLD COUNT W/DIF F mean platelet volume 11.3 fL 9.0-[address] [facility] (Lab) [address] [place], [address], 03/08/2024 11:32:30 03/08/20 24 03/08/2024 CBC/C OMPLE TE BLD COUNT W/DIF F neutrophils 53.3 % 39.0-[address] [facility] (Lab) [address] [place], [address], 03/08/2024 11:32:30 03/08/2003/08/2024 CBC/C OMPLE TE BLD COUNT W/DIF F lymphocytes 30.2 % 16.0-[address] [facility] (Lab) [address] [place], [address], 03/08/2024 11:32:30 03/08/20 24 03/08/2024 CBC/C OMPLE TE BLD COUNT W/DIF F monocytes 12.0 % 5.0-[address] [facility] (Lab) [address] [place], [address], 03/08/2024 11:32:30 03/08/20 24 03/08/2024 CBC/C OMPLE TE BLD COUNT W/DIF F eosinophils 3.7 % 1.0-7. [address] [facility] (Lab) [address] [place], [address], 03/08/2024 11:32:30 03/08/20 24 03/08/2024 CBC/C OMPLE TE BLD COUNT W/DIF F basophils 0.5 % 0.0-2. [address] [facility] (Lab) [address] [place], [address], 03/08/2024 11:32:30 03/08/20 24 03/08/2024 CBC/C OMPLE TE BLD COUNT W/DIF F immature granulocytes 0.3 % 0.00-[address] [facility] (Lab) [address] [place], [address], 03/08/2024 11:32:30 03/08/2003/08/2024 CBC/C OMPLE TE BLD COUNT W/DIF F neutrophils, absolute count 3.28 x10'3 /uL 1.5-8. [address] [facility] (Lab) [address] [place], [address], 03/08/2024 11:32:30 03/08/2003/08/2024 CBC/C OMPLE TE BLD COUNT W/DIF F lymphocytes, absolute count 1.86 x10'3 /uL 1.07-[address] [facility] (Lab) [address] [place], [address], 03/08/2024 11:32:30 03/08/2003/08/2024 CBC/C OMPLE TE BLD COUNT W/DIF F monocytes, absolute count 0.74 x10'3 /uL 0.29-[address] [facility] (Lab) [address] [place], [address], 03/08/2024 11:32:30 03/08/20 24 03/08/2024 CBC/C OMPLE TE BLD COUNT W/DIF F eosinophils, absolute count 0.23 x10'3 /uL 0.02-[address] [facility] (Lab) [address] [place], [address], 03/08/2024 11:32:30 03/08/20 24 03/08/2024 CBC/C OMPLE TE BLD COUNT W/DIF F basophils, absolute count 0.03 x10'3 /uL 0.01-[address] [facility] (Lab) [address] [place], [address], 03/08/2024 11:32:30 03/08/20 24 03/08/2024 CBC/C OMPLE TE BLD COUNT W/DIF F immature granulocytes ,absolute 0.02 x10'3 /uL 0.00-[address] [facility] (Lab) [address] [place], [address], 03/08/2024 11:32:30 03/08/20 24 03/08/2024 CBC/C OMPLE TE BLD COUNT W/DIF F nucleated red blood cells 0.0 % -0 Not Available [facility] (Lab) [address] [place], [address], 03/08/2024 11:32:30 03/08/20 24 03/08/2024 CBC/C OMPLE TE BLD COUNT W/DIF F NRBC# 0.00 x10'3 /uL Not Available [facility] (Lab) [address] [place], [address], 03/08/2024 11:32:30 03/08/20 24 03/08/2024 TSH W/REF JULIETTE FT4 TSH with reflex free T4 2.330 uIU/m L 0.465- 4.[address] [facility] (Lab) [address] [place], [address], 03/08/2024 11:35:26 03/08/20 24 03/08/2024 VITAM IN D 25-HY DROXY [id number] 40.0 NG/mL 30-100 Vitam in D Statu s: Defic ient: <20 ng/mL Insuf ficie nt: 20-29 ng/mL Suffi cient : 30-10 0 ng/mL Not Available [facility] (Lab) [address] [place], [address], 03/08/2024 12:26:28 05/27/20 24 05/27/2024 MRI, brain , w/o contr ast No observ ation record ed. [facility] [address], [place], [address], 05/27/2024 11:49:38 09/04/19 25 09/03/2024 US, echo ardio gram No observ ation record ed. [email or web address] [facility] [address], [place], [address], 03/29/2025 09:58:29 Result Notes None recorded. Problems Name Problem SNOMED Code Status Onset Date Resolution Date Notes Provider Name and Address Organization Details Recorded Time Hyperlipid emia 49083433 Active 2021 Not [address] [facility] 3 13:39:02 Dyspnea on exertion 59176287 Active 2021 Not [address] [facility] 3 13:39:02 Vitamin D deficiency 43194322 Active 2022 Not Available [facility] 3 13:39:01 Vertigo 607013053 Active 2022 Not [address] 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 3 13:39:01 Cerebrovas cular accident 503654790 Active 2022 Not Available [facility] 3 13:39:01 Visual impairment 838596588 Active 2022 Not [address] [facility] 3 13:39:02 Total bilirubin above reference range 0472920061657 08 Active 2022 Not [address] [facility] 3 13:39:01 Toothache 50534134 Active 2023 Guanakito lee MD [address] [facility], [facility] [address], [place], [address] , [facility] 4 11:22:28 Dizziness 986668255 Active 2023 SENTHIL Shanks null, [place] - [facility] 4 11:23:15 Acute urinary tract infection 164527812 Active 2023 Estefanía Morales MA null, [place] - [facility] 4 14:15:55 Chronic depression 809541208 Active 2023 Guanakito lee MD [address] [place] [address], [place], [address] , [facility] [employer] [facility] [employer] [facility] 4 10:58:52 Essential hypertensi on 25586949 Active 2023 Guanakito lee MD [address], [address] , [facility] [employer] [facility] [employer] [facility] 4 12:32:38 Pheochromo cytoma 382477451 Active 2023 Guanakito lee MD [address], [address] , [facility] [employer] [facility] [employer] 4 12:34:21 Hyperbilir ubinemia 62452078 Active 2024 Guanakito lee MD [address], [address] , [employer] [facility] [employer] [facility] 5 10:40:19 Left inguinal pain 9894894842201 9104 Active 2024 Guanakito lee MD [address], [address], [address] , [facility] [employer] [facility] [employer] 5 11:00:47 Problem Notes None recorded. Procedures Surgical History Date Name Laterality Status Provider Name and Address Organization Details Recorded Time 5 Medicare Wellness CPT Code, subsequent completed Gabbi Hugo DC [employer] [facility] [email or web address] 04/12/2025 10:33:32 4 Medicare Wellness CPT Code, subsequent completed Sameer Camacho LPN DC [employer] [facility] [employer] [facility] 11/07/2023 09:00:46 4 Advanced Care Planning completed Sameer Camacho LPN [place] [employer] [facility] [employer] 11/11/2023 11:00:10 open heart surgery completed Not Available [facility] 07/31/2022 23:57:35 Imaging Results None recorded. [...] (BMI) Body weight Body temperature Heart rate Oxygen saturation Pain severity - 0-10 verbal numeric rating [Score] - Reported Systolic And Diastolic Provider Name and Address Organization Details Last Updated DateTime 5 182.88 cm 30.9 kg/m2 632454. 06 g 97.5 [degF] 50 /min 96 % 0 102/60 mm[Hg] Silvia Chamberlain MA [employer] [facility] [email or web address] 5 10:18:26 Date Recorded Body height Body mass index (BMI) Body weight Body temperature Heart rate Systolic And Diastolic Provider Name and Address Organization Details Last Updated DateTime 5 182.88 cm 30.2 kg/m2 497214. 1 g 97.4 [degF] 54 /min 116/60 mm[Hg] SENTHIL Negron [facility] [employer] [facility] 5 10:22:34 Date Recorded Body height Body mass index (BMI) Body weight Body temperature Heart rate Systolic And Diastolic Provider Name and Address Organization Details Last Updated DateTime 4 182.88 cm 30.8 kg/m2 980748. 47 g 97.4 [degF] 60 /min 106/70 mm[Hg] Eva Hart Zak [facility] [employer] [facility] 4 10:26:31 Date Recorded Body height Body mass index (BMI) Body weight Heart rate Respiratory rate Oxygen saturation Systolic And Diastolic Provider Name and Address Organization Details Last Updated DateTime 4 182.88 cm 29.8 kg/m2 10396.3 2 g 54 /min 16 /min 97 % 100/62 mm[Hg] Sameer Camacho LPN [facility] [employer] [facility] 4 12:22:42 Date Recorded Body height Body mass index (BMI) Body weight Body temperature Heart rate Respiratory rate Oxygen saturation Systolic And Diastolic Provider Name and Address Organization Details Last Updated DateTime 5 182.88 cm 31.2 kg/m2 860679. 25 g 97.6 [degF] 64 /min 18 /min 95 % 140/80 mm[Hg] Gabbi Arias [facility] [employer] [facility] 5 10:52:52 Social History Question Answer Notes LastModified by Organization Details LastModified Time Tobacco Smoking Status Never [facility]oker Not Available [facility]22 23:57:12 Do You Have An Advance Directive? No [id number] Information not available 07/31/2022 Do You Wear A Helmet When Biking? No Doews Not Bike Information not available 11/11/2023 Are You Blind Or Do You Have Difficulty Seeing? No MIGRATION.030 [id number] Information not available 07/31/2022 What Is Your Level Of Caffeine Consumption? None MIGRATION.030 059384 Information not available 07/31/2022 In The 14 Days Before Symptom Onset, Have You Had Close Contact With A Laboratory-confi rmed COVID-19 While That Case Was Ill? No MIGRATION.[id number] Information not available 07/31/2022 In The 14 Days Before Symptom Onset, Have You Had Close Contact With A Person Who Is Under Investigation For COVID-19 While That Person Was Ill? No MIGRATION.030 [id number] Information not available 07/31/2022 Are You Deaf Or Do You Have Serious Difficulty Hearing? No MIGRATION.030 131303 Information not available 07/31/2022 What Type Of Diet Are You Following? REGULAR MIGRATION.030 555776 Information not available 07/31/2022 What Is The Highest Grade Or Level Of School You Have Completed Or The Highest Degree You Have Received? [id number] MIGRATION.030 322110 Information not available 07/31/2022 Have There Been Any Changes To Your Family Or Social Situation? No MIGRATION.030 736239 Information not available 07/31/2022 What Is The Fluoride Status Of Your Home? Unknown MIGRATION.030 259494 Information not available 07/31/2022 Are There Any Guns Present In Your Home? Yes MIGRATION.030 975769 Information not available 07/31/2022 Do You Use Insect Repellent Routinely? No MIGRATION.030 489359 Information not available 07/31/2022 [facility].300 204653 Information not available 07/31/2022 Presence Of Domestic Violence No [email or web address] Information not available 11/11/2023 Guns Present In The Home? No [email or web address] Information not available 11/11/2023 Are You Able To Care For Yourself? Yes [email or web address] Information not available 11/11/2023 Are You Blind Or Do Yo Have Difficulty Seeing? No [email or web address] Information not available 11/11/2023 Are You Deaf Or Do You Have Serious Difficulty Hearing? No [email or web address] Information not available 11/11/2023 General Stress Level? Moderate [email or web address] Information not available 11/11/2023 Live Alone Of With Others? With Others [email or web address] Information not available 11/11/2023 Do You Have A Medical Power Of Contour Band Saw Operator Vertical? No MIGRATION.030 312771 Information not available 07/31/2022 What Was The Date Of Your Most Recent Tobacco Screening? 11/30/2024 [email or web address] Information not available 11/30/2024 Do You Have Any Pets? Yes Cat, Dog Outside [email or web address] Information not available 11/11/2023 What Is Your Relationship Status? MIGRATION.0301 [id number] Information not available 07/31/2022 Do You Use Your Seat Belt Or Car Seat Routinely? Yes MIGRATION.0301 [id number] Information not available 07/31/2022 Do You Have Smoke And Carbon Monoxide Detectors In Your Home? Yes MIGRATION.0301 148509 Information not available 07/31/2022 Are You Passively Exposed To Smoke? No MIGRATION.0301 601376 Information not available 07/31/2022 Are There Any Smokers In Your House? No MIGRATION.0301 532159 Information not available 07/31/2022 What Types Of Sporting Activities Do You Participate In? None [email or web address] Information not available 11/11/2023 Do You Use Sunscreen Routinely? No MIGRATION.0301 082723 Information not available 07/31/2022 Has Tobacco Cessation Counseling Been Provided? No N/a MIGRATION.0301 423213 Information not available 07/31/2022 Have You Recently Traveled Abroad? No MIGRATION.0301 [id number] Information not available 07/31/2022 Do You Have Difficulty Walking Or Climbing Stairs? No MIGRATION.0301 268129 Information not available 07/31/2022 Do You Have Any Dietary Restrictions? No MIGRATION.0301 837038 Information not available 07/31/2022 Sex: Male Functional Status Question Answer Note LastModified by Organizat ion Details LastModified Time Do you use any illicit or recreational drugs? No MIGRATION.[id number] 026 Information not available 07/31/2022 Do you or have you ever used any other forms of tobacco or nicotine? No MIGRATION.0218189 026 Information not available 07/31/2022 What is your level of alcohol consumption? None MIGRATION.9324196 026 Information not available 07/31/2022 Are you currently employed? No Information not available 11/11/2023 Do you have transportation difficulties? No MIGRATION.7672460 026 Information not available 07/31/2022 Are you able to walk independently without assistance or assistive devices? YESWOREST MIGRATION.2378891 026 Information not available 07/31/2022 Do you have difficulty doing errands alone? No MIGRATION.1817719 026 Information not available 07/31/2022 Are you able to care for yourself independently? Yes MIGRATION.2681219 026 Information not available 07/31/2022 Do you have difficulty dressing, bathing, grooming, or toileting? No MIGRATION.3352065 026 Information not available 07/31/2022 What is your exercise level? None MIGRATION.4264587 026 Information not available 07/31/2022 Mental Status Question Answer Note LastModified by Organizat ion Details LastModified Time Do you feel stressed (tense, restless, nervous, or anxious, or unable to sleep at night)? [id number] [email or web address] Information not available 11/11/2023 Do you have difficulty concentrating, remembering or making decisions? No MIGRATION.87360152 26 Information not available 07/31/2022 Family History Relationship Description Onset Age of this Age Resolved Age Notes LastModified by Organization Details LastModified Time Father No current problems or disability MIGRATION.805 [id number] Not available 07/31/2022 23:57:35 Mother No current problems or disability MIGRATION.265 [id number] Not available 07/31/2022 23:57:36 Medical History Condition [...] HAVE YOU BEEN HOSPITALIZED OR SEEN IN [facility] IN THE PAST YEAR ? N [...] high-dose, quadrivalent, PF 2 completed Not Available [facility] 00:00:06 Influenza, high-dose, quadrivalent, PF 3 completed Eva Hart RMA null, [facility] 05/13/2023 10:34:51 Influenza, split virus, quadrivalent, preservative 9 completed Eva Hart RMA null, [facility] 11/30/2024 10:20:18 Influenza, split virus, quadrivalent, preservative 7 completed Eva Hart RMA null, [facility] 11/30/2024 10:20:18 Influenza, split virus, quadrivalent, preservative 0 completed Eva Hart RMA null, [facility] 11/30/2024 10:20:18 influenza, intradermal, quadrivalent, preservative free 6 completed Eva Hart RMA null, [facility] 11/30/2024 10:20:18 Influenza, high-dose, quadrivalent, PF 2 completed Eva Hart RMA null, [facility] 11/30/2024 10:20:18 COVID-19, mRNA, LNP-S, PF, 30 mcg/0.3 mL dose 1 completed Eva Hart RMA null, [facility] 11/30/2024 10:20:18 COVID-19, mRNA, LNP-S, PF, 30 mcg/0.3 mL dose 1 completed Eva Hart, RMA null, [facility] 11/30/2024 10:20:18 pneumococcal polysaccharide PPV23 9 completed Eva Vowinckel, RMA null, [facility] 11/30/2024 10:20:18 Tdap 5 completed Eva Hart RMA null, [facility] 11/30/2024 10:20:18 Tdap 5 completed Eva Vowinckel, RMA null, [facility] 11/30/2024 10:20:18 Pneumococcal conjugate PCV 13 8 completed Eva Hart RMA null, [facility] 11/30/2024 10:20:18 zoster live 5 completed Eva Hart RMA null, [facility] 11/30/2024 10:20:18 zoster live 5 completed Eva Hart RMA null, [facility] 11/30/2024 10:20:18 Influenza, high-dose, trivalent, PF 5 completed Eva Hart RMA null, [facility] 11/30/2024 10:20:18 Influenza, high-dose, trivalent, PF 9 completed Eva Hart RMA null, [facility] 11/30/2024 10:20:18 Influenza, high-dose, trivalent, PF 5 completed Gabbi Hugo null, [facility] 04/12/2025 14:31:32 Influenza, high-dose, trivalent, PF 4 completed Eva Hart RMA null, [facility] 03/09/2024 10:53:30 Past Encounters Encounter ID Performer Location Encounter Start Date Encounter Closed Date Diagnosis/Indication Diagnosis SNOMED-CT Code Diagnosis ICD10 Code Diagnosis IMO Codes Diagnosis Note [id number] Guanakito lee MD [facility] Internal Med [facility] [address] [place] [address] 03/13/2021 00:00:00 03/26/2021 15:13:51 [id number] Guanakito lee MD S_G Internal Med [facility] [address] [address] 06/21/2021 00:00:00 07/24/2021 12:13:08 [id number] Guanakito lee MD S_G Internal Med [facility] [address] [address] 11/22/2021 00:00:00 11/27/2021 13:03:13 [id number] MD ANEUDY BernsteinS_G Internal Med [facility] [address] [address] 01/31/2022 00:00:00 01/31/2022 11:58:41 [id number] MD ANEUDY BernsteinS_[facility] Internal Med [facility] [address] [address] 07/30/2022 00:00:00 07/30/2022 15:06:11 [id number] Guanakito lee MD S_G Internal Med [facility] [address] [place] [address] Ave[address] [address] 12/10/2022 10:30:30 12/10/2022 11:18:10 Screening - NAD 630226199 Z13.9 C-scope: Old records from PCP, Cologuard 12/16/2018 negativeCo loguard 01/07/2022 : Neg Get yearly flu shot, declined today 03/13/2021 UTD tdap in 2014 as per his hxUTD PCV #13 #23 as per his hxCan do shingrix vaccineUTD on COVID 19 vaccine done RTC in 4 monthsDo labsER if worseHe and his and daughter Arabella did verbalize his understand ing of the above Hyperlipidemia 70883897 E78.5 On ASAOn atorvastat in 40mg dailyGet labs Vitamin D deficiency 347 88854 E55.9 Vertigo 617992683 R42 Occasional ly when he turns his head, does not want any meds, agrees to see ENT OV 01/31/2022 :No complaints now Dyspnea on exertion 6084 5006 R06.09 Has noted this, very concerned as [place] [employer], and has noted dust in his back yardGet CT chest OV 01/31/2022 :XR Chest 12/05/2021 : Neg, declines any CT chest now, no complaints Intracrani al meningioma 625242832 D32.[address] Parson [facility] 2.5X 2.4X 2.2 cm 10/17/17/ p MRI 04/18/2021 , get a referral to [facility] has adamantly declined, states that he is doing well, has no symptoms Does not want to do any more MRI today 07/30/2022 , he states that he did have a series of MRIs in [facility] and they were all the 'same'No complaints at this time Cerebrovas cular accident 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 I63.9 He did have this in 2013, he has no residual effects, states that he is very 'strong' History of repair of mitral valve 768254890 Z98.890 Hx of MVR done by Dr Aguilar as per his historyNee ds to see [facility] Dr Pizarro whom he has seen in the pastReferr ed 03/13/2021 , 06/21/21Ol d records from prior PCPECHO 07/17/15, 07/22/16, 10/09/17 08/10/2021 : Dr Pizarro, f/u in one year ECHO 08/09/2022 : Dr Pizarro Visual impairment 619504 003 H54.7 Sees his eye Total biligor schmitz above reference range 4389244431 48548 R17 MildUS liver 02/14/2022 : Neg Screening for malignant neoplasm of prostate 257510400 Z12.5 [id number] Guanakito lee MD S_[facility] Internal Med [place] [address] [place] [address] 05/13/2023 10:10:22 05/13/2023 10:36:51 Screening - NAD 220757054 Z13.9 C-scope: Old records from PCP, Cologuard 12/16/2018 negativeCo loguard 01/07/2022 : Neg Get yearly flu shot, declined today 03/13/2021 UTD tdap in 2014 as per his hxUTD PCV #13 #23 as per his hxCan do shingrix vaccineUTD on COVID 19 vaccine doneCan do RSV vaccine RTC in 4 monthsDo labsER if worseHe and his and daughter Arabella did verbalize his understand ing of the above Hyperlipidemia 04311644 E78.5 On ASAOn atorvastat in 40mg dailyGet labs Vitamin D deficiency 347 16323 E55.9 Vertigo 902210262 R42 Occasional ly when he turns his head, does not want any meds, agrees to see ENT OV 01/31/2022 :No complaints now Dyspnea on exertion 6084 5006 R06.09 Has noted this, very concerned as he does live by the [employer], and has noted dust in his back yardGet CT chest OV 01/31/2022 :XR Chest 12/05/2021 : Neg, declines any CT chest now, no complaints Intracrani al meningioma 549859997 D32.[address] Parson [facility] 2.5X 2.4X 2.2 cm 10/17// p MRI 04/18/2021 , get a referral to [facility] has adamantly declined, states that he is doing well, has no symptoms Does not want to do any more MRI today 07/30/2022 , 05/13/2023 , he states that he did have a series of MRIs in [facility] and they were all the 'same'No complaints at this time Cerebrovas cular accident 036042777 I63.9 He did have this in 2013, he has no residual effects, states that he is very 'strong' History of repair of mitral valve 488547397 Z98.890 Hx of MVR done by Dr Aguilar as per his historyNee ds to see [facility] Dr Pizarro whom he has seen in the pastReferr ed 03/13/2021 , 06/21/21Ol d records from prior PCPECHO 07/17/15, 07/22/16, 10/09/17 08/10/2021 : Dr Pizarro, f/u in one year ECHO 08/09/2022 : Dr Pizarro Visual impairment 957042 003 H54.7 Sees his eye MD Trujillo biligor schmitz above reference range 1154189712 67515 R17 MildUS liver 02/14/2022 : Neg [id number] Guanakito lee MD [facility]_G Internal Med [facility] [address] [facility], [address] [place] [address] 11/11/2023 10:15:01 11/11/2023 11:20:13 Adult health examination 328381865 Z00.00 Screening for disorder 660867897 Z13.9 Screening - NAD 68586966 3 Z13.9 C-scope: Old records from PCP, Cologuard 12/16/2018 negativeCo loguard 01/07/2022 : Neg Get yearly flu shot, declined today 03/13/2021 UTD tdap in 2014 as per his hxUTD PCV #13 #23 as per his hxCan do shingrix vaccineUTD on COVID 19 vaccine doneCan do RSV vaccine RTC in 4 monthsDo labsER if worseHe and his and daughter Arabella did verbalize his understand ing of the above Hyperlipidemia 47364879 E78.5 On ASAOn atorvastat in 40mg dailyGet labs Vitamin D deficiency 347 76965 E55.9 Vertigo 594071899 R42 Occasional ly when he turns his head, does not want any meds, agrees to see ENT OV 01/31/2022 :No complaints now Dyspnea on exertion 6084 5006 R06.09 Has noted this, very concerned as he does live by the [employer], and has noted dust in his back yardGet CT chest OV 01/31/2022 :XR Chest 12/05/2021 : Neg, declines any CT chest now, no complaints Intracrani al meningioma 568353299 D32.[address] Parson [facility] 2.5X 2.4X 2.2 cm 10/17/18S/ p MRI 04/18/2021 , get a referral to [facility] has adamantly declined, states that he is doing well, has no symptoms Does not want to do any more MRI today 07/30/2022 , 05/13/2023 , he states that he did have a series of MRIs in [facility] and they were all the 'same'No complaints at this time Cerebrovas cular accident 673844862 I63.9 He did have this in 2013, he has no residual effects, states that he is very 'strong' History of repair of mitral valve 337678442 Z98.890 Hx of MVR done by Dr Aguilar as per his historyNee ds to see [facility] Dr Pizarro whom he has seen in the pastReferr ed 03/13/2021 , 06/21/21Ol d records from prior PCPECHO 07/17/15, 07/22/16, 10/09/17 08/10/2021 : Dr Pizarro, f/u in one year ECHO 08/09/2022 : Dr Reyes 08/22/2023 : Dr Geovany Pizarro: 08/22/2023 : F/u in one year Visual impairment 203010 003 H54.7 Sees his eye Total bili schmitz above reference range 2113897866 54662 R17 MildUS liver 02/14/2022 : Neg [id number] Guanakito lee MD [facility] Internal Med [facility] [address] [facility], [facility] [address] [place] [address] 03/09/2024 10:13:25 03/09/2024 10:58:03 Hyperlipidemia 38366642 E78.5 On ASAOn atorvastat in 40mg dailyGet labs Screening - NAD 66012431 3 Z13.9 C-scope: Old records from PCP, Cologuard 12/16/2018 negativeCo loguard 01/07/2022 : Neg Get yearly flu shot, declined today 03/13/2021 UTD tdap in 2014 as per his hxUTD PCV #13 #23 as per his hxCan do shingrix vaccineUTD on COVID 19 vaccine doneCan do RSV vaccine RTC in 4 monthsDo labsER if worseHe and his and daughter Arabella did verbalize his understand ing of the above Vitamin D deficiency 347 63950 E55.9 Vertigo 886260388 R42 Occasional ly when he turns his head, does not want any meds, agrees to see ENT OV 01/31/2022 :No complaints now Dyspnea on exertion 6084 5006 R06.09 Has noted this, very concerned as he does live by the [employer], and has noted dust in his back yardGet CT chest OV 01/31/2022 :XR Chest 12/05/2021 : Neg, declines any CT chest now, no complaints Intracrani al meningioma 965000206 D32.[address] Parson [facility] 2.5X 2.4X 2.2 cm 10/17/18S/ p MRI 04/18/2021 , get a referral to [facility] has adamantly declined, states that he is doing well, has no symptoms Does not want to do any more MRI today 07/30/2022 , 05/13/2023 , he states that he did have a series of MRIs in [facility] and they were all the 'same'No complaints at this time Cerebrovas cular accident 458574315 I63.9 He did have this in 2013, he has no residual effects, states that he is very 'strong'As per daughter 03/09/2024 , she did not want him to see Dr Griffiths, she wants a referral to [facility] neurology History of repair of mitral valve 299267103 Z98.890 Hx of MVR done by Dr Aguilar as per his historyNee ds to see [facility] Dr Pizarro whom he has seen in the pastReferr ed 03/13/2021 , 06/21/21Ol d records from prior PCPECHO 07/17/15, 07/22/16, 10/09/17 08/10/2021 : Dr Pizarro, f/u in one year ECHO 08/09/2022 : Dr Reyes 08/22/2023 : Dr Geovany Pizarro: 08/22/2023 : F/u in one year Visual impairment 418639 003 H54.7 Sees his eye Total bili schmitz above reference range 9269224895 23180 R17 MildUS liver 02/14/2022 : Neg Administra tion of influenza vaccine 95510809 Z23 Chronic depression 41539 0009 F32.A Used to be on citalopram , as per daughter he does have depression , the patient himself denies any suicidal or homicidal ideation or attempts, states that he is very happy to be working in the yard and also fishingHe is agreeable to restart the citalopram , all side effects explained to him [id number] Guanakito lee MD [facility] Internal Med [facility] [address] [facility] [place] [address] 04/08/2024 12:19:23 04/08/2024 12:50:53 Essential hypertension 37473137 I10 BP logs 140-150/70 -80sGet labsWill now see Dr Garcia Vertigo 381490907 R42 Occasional ly when he turns his head, does not want any meds, agrees to see ENT OV 01/31/2022 :No complaints now OV 04/08/2024 : Get a referral to neurology and cardiology Cerebrovas cular accident 666806459 I63.9 He did have this in 2013, he has no residual effects, states that he is very 'strong'As per daughter 03/09/2024 , she did not want him to see Dr Griffiths, she wants a referral to [facility] neurology Again advised 04/08/2024 to see neurology! Pheochromocytoma 7800662 09 D35.00 As per daughter, she would like to get tested for this d/t BP fluctuatio ns, he has also been dizzy [id number] Guanakito lee MD [facility] Internal Med [facility] [address] [address] 07/13/2024 10:02:02 07/13/2024 11:09:21 Essential hypertension 29156183 I10 BP logs 140-150/70 -80sGet labsDr Juarez last OV 11/20/2023 , next in 6 months, referred 07/13/2024 Vertigo 179975584 R42 Occasional ly when he turns his head, does not want any meds, agrees to see ENT OV 01/31/2022 :No complaints now OV 04/08/2024 : Get a referral to neurology and cardiology Cerebrovas cular accident 416349366 I63.9 He did have this in 2013, he has no residual effects, states that he is very 'strong'As per daughter 03/09/2024 , she did not want him to see Dr Griffiths, she wants a referral to [facility] neurology Again advised 04/08/2024 to see neurology! Pheochromocytoma 2264411 09 D35.00 As per daughter, she would like to get tested for this d/t BP fluctuatio ns, he has also been dizzy OV 07/13/2024 : Today states that all his symptoms are resolved, he does not want to see nephrology Hyperlipidemia 05049948 E78.5 On ASAOn atorvastat in 40mg dailyGet labs Screening - NAD 65354668 3 Z13.9 C-scope: Old records from PCP, Cologuard 12/16/2018 negativeCo loguard 01/07/2022 : Neg Get yearly flu shot, declined today 03/13/2021 UTD tdap in 2014 as per his hxUTD PCV #13 #23 as per his hxCan do shingrix vaccineUTD on COVID 19 vaccine doneCan do RSV vaccine RTC in 4 monthsDo labsER if worseKj and his and daughter Arabella did verbalize his understand ing of the above, did d/w his daughter Arabella today about his care also 07/13/2024 Vitamin D deficiency 347 76686 E55.9 Dyspnea on exertion 6084 5006 R06.09 Has noted this, very concerned as he does live by the [employer], and has noted dust in his back yardGet CT chest OV 01/31/2022 :XR Chest 12/05/2021 : Neg, declines any CT chest now, no complaints Intracrani al meningioma 812468352 D32.[address] Parson [facility] 2.5X 2.4X 2.2 cm 10/17// p MRI 04/18/2021 , [facility], states that he is doing well, has no symptoms Does not want to do any more MRI today 07/30/2022 , 05/13/2023 , he states that he did have a series of MRIs in [facility] and they were all the 'same'No complaints at this time S/p MRI 05/27/2024 2.6cm mass History of repair of mitral valve 055159794 Z98.890 Hx of MVR done by Dr Aguilar as per his historyNee ds to see [facility] Dr Pizarro whom he has seen in the pastReferr ed 03/13/2021 , 06/21/21Ol d records from prior PCPECHO 07/17/15, 07/22/16, 10/09/17 08/10/2021 : Dr Pizarro, f/u in one year ECHO 08/09/2022 : Dr Reyes 08/22/2023 : Dr Geovany Pizarro: 08/22/2023 : F/u in one yearDr Juarez 11/20/2023 : F/u in 6 monts Visual impairment 411814 003 H54.7 Sees his eye Total bili schmitz above reference range 5805918849 13390 R17 MildUS liver 02/14/2022 : Neg Chronic depression 51845 0009 F32.A Used to be on citalopram , as per daughter he does have depression , the patient himself denies any suicidal or homicidal ideation or attempts, states that he is very happy to be working in the yard and also fishingHe is agreeable to restart the citalopram , all side effects explained to him Screening for malignant neoplasm of prostate 477676383 Z12.5 [id number] Guanakito lee MD [facility] Internal Med [facility] [address] [facility], [address] [address] 11/30/2024 10:10:37 11/30/2024 11:02:59 Essential hypertension 59698475 I10 ECHO 09/03/2024 : [facility] BP logs 140-150/70 -80sGet Brien Pizarro last OV 11/20/2023 , next in 6 months, referred 07/13/2024 Vertigo 925701852 R42 Occasional ly when he turns his head, does not want any meds, agrees to see ENT OV 01/31/2022 :No complaints now OV 04/08/2024 : Get a referral to neurology and cardiology Cerebrovas cular accident [id number] I63.9 He did have this in 2013, he has no residual effects, states that he is very 'strong'As per daughter 03/09/2024 , she did not want him to see Dr Griffiths, she wants a referral to [facility] neurology Again advised 04/08/2024 , 11/30/2024 to see neurology! Pheochromocytoma [id number] 09 D35.00 As per daughter, she would like to get tested for this d/t BP fluctuatio ns, he has also been dizzy OV 07/13/2024 : Today states that all his symptoms are resolved, he does not want to see nephrology Hyperlipidemia 63461444 E78.5 On ASAOn atorvastat in 40mg dailyGet labs Screening - NAD [id number] 3 Z13.9 C-scope: Old records from PCP, Cologuard 12/16/2018 negativeCo loguard 01/07/2022 : Neg Get yearly flu shot, declined today 03/13/2021 UTD tdap in 2013 as per his hxUTD PCV #13 #23 as per his hxCan do shingrix vaccineUTD on COVID 19 vaccine doneCan do RSV vaccine RTC in 4 monthsDo labsER if worseHe and his did verbalize his understand ing of the aboveAlso discussed his care with his daughter Vitamin D deficiency 347 65664 E55.9 Dyspnea on exertion 6084 5006 R06.09 Has noted this, very concerned as he does live by the [employer], and has noted dust in his back yardGet CT chest OV 01/31/2022 :XR Chest 12/05/2021 : Neg, declines any CT chest now, no complaints Intracrani al meningioma [id number] D32.[address] Parson [facility] 2.5X 2.4X 2.2 cm 10/17// p MRI 04/18/2021 , get a referral to NSHe has adamantly declined, states that he is doing well, has no symptoms Does not want to do any more MRI today 07/30/2022 , 05/13/2023 , he states that he did have a series of MRIs in [facility] and they were all the 'same'No complaints at this time S/p MRI 05/27/2024 2.6cm massAdvise d to see his neurologis t 11/30/2024 History of repair of mitral valve [id number] Z98.890 Hx of MVR done by Dr Aguilar as per his historyNee ds to see [facility] Dr Pizarro whom he has seen in the pastReferr ed 03/13/2021 , 06/21/21Ol d records from prior PCPECHO 07/17/15, 07/22/16, 10/09/17 08/10/2021 : Dr Pizarro, f/u in one year ECHO 08/09/2022 : Dr Reyes 08/22/2023 : Dr PizarroDr Juarez: 08/22/2023 : F/u in one yearDr Juarez 11/20/2023 : F/u in 6 monts Visual impairment 558471 003 H54.7 Sees his eye Total bili schmitz above reference range [id number] 41587 R17 MildUS liver 02/14/2022 : Neg Chronic depression 43536 0009 F32.A Used to be on citalopram , as per daughter he does have depression , the patient himself denies any suicidal or homicidal ideation or attempts, states that he is very happy to be working in the yard and also fishingHe is agreeable to restart the citalopram , all side effects explained to him Left inguinal pain 92768 39265 4947004 R10.32 998168 Likely has herniaGet referral to G surgery [id number] Guanakito lee MD S[facility] Internal Med [facility] [address] [facility], [facility] [address] [place] [address] 04/12/2025 10:16:55 04/12/2025 11:37:36 Essential hypertension 98911934 I10 ECHO 09/03/2024 : [facility] BP logs 140-150/70 -80sGet labsDr Juarez last OV 11/20/2023 , next in 6 months, referred 07/13/2024 Vertigo [id number] R42 Occasional ly when he turns his head, does not want any meds, agrees to see ENT OV 01/31/2022 :No complaints now OV 04/08/2024 : Get a referral to neurology and cardiology Cerebrovas cular accident [id number] I63.9 He did have this in 2013, he has no residual effects, states that he is very 'strong'As per daughter 03/09/2024 , she did not want him to see Dr Griffiths, she wants a referral to [facility] neurology Again advised 04/08/2024 , 11/30/2024 , 04/12/2025 to see neurology! Pheochromocytoma [id number] 09 D35.00 As per daughter, she would like to get tested for this d/t BP fluctuatio ns, he has also been dizzy OV 07/13/2024 : Today states that all his symptoms are resolved, he does not want to see nephrology Hyperlipidemia 36870356 E78.5 On ASAOn atorvastat in 40mg dailyGet labs Screening - NAD 04751620 3 Z13.9 C-scope: Old records from PCP, Cologjian 12/16/2018 negativeCo loguard 01/07/2022 : NegCologua rd 01/05/2025 : Neg Get yearly flu shot, declined today 03/13/2021 UTD tdap in 2013 as per his hxUTD PCV #13 #23 as per his hxCan do shingrix vaccineUTD on COVID 19 vaccine doneCan do RSV vaccine RTC in 4 monthsDo labsER if worseHe and his did verbalize his understand ing of the above Vitamin D deficiency 347 58626 E55.9 Dyspnea on exertion 6084 5006 R06.09 Has noted this, very concerned as he does live by the [employer], and has noted dust in his back yardGet CT chest OV 01/31/2022 :XR Chest 12/05/2021 : Neg, declines any CT chest now, no complaints Intracrani al meningioma [id number] D32.[address] Parson [facility] 2.5X 2.4X 2.2 cm 10/17// p MRI 04/18/2021 , get a referral to NSHe has adamantly declined, states that he is doing well, has no symptoms Does not want to do any more MRI today 07/30/2022 , 05/13/2023 , he states that he did have a series of MRIs in [facility] and they were all the 'same'No complaints at this time S/p MRI 05/27/2024 2.6cm massAdvise d to see his neurologis t 11/30/2024 History of repair of mitral valve [id number] Z98.890 Hx of MVR done by Dr Aguilar as per his historyNee ds to see HV Dr Pizarro whom he has seen in the pastReferr ed 03/13/2021 , 06/21/21Ol d records from prior PCPECHO 07/17/15, 07/22/16, 10/09/17 08/10/2021 : Dr Pizarro, f/u in one year ECHO 08/09/2022 : Dr WelshCHO 08/22/2023 : Dr PizarroDr Juarez: 08/22/2023 : F/u in one yearDr Juarez 11/20/2023 : F/u in 6 montsDr Juarez: 08/20/2024 : F/u in 6 months Visual impairment 330420 003 H54.7 Sees his eye Total bili schmitz above reference range [id number] 46710 R17 MildUS liver 02/14/2022 : Neg Chronic depression 04448 0009 F32.A Used to be on citalopram , as per daughter he does have depression , the patient himself denies any suicidal or homicidal ideation or attempts, states that he is very happy to be working in the yard and also fishingHe is agreeable to restart the citalopram , all side effects explained to him Left inguinal pain 74300 35207 6930291 R10.32 167775 Likely has herniaGet referral to G surgery Dr Dinero last OV 01/21/2025 , f/u PRN Adult heal th examination [id number] Z00.00 Screening for disorder 163833426 Z13.9 History of repair of inguinal hernia 373039247 Z98.890 Z87.19 [id number] S/p surgery Dr Abraham last OV 01/21/2025 Health Concerns Section Related Observation LastModified by Organization Detai ls LastModified Time None Recorded Concern Status LastModified by Organization Details LastModified Time None Recorded Advance Directives Directive N: Payers Insurance Date Sequence Insurance Name Policy Number Policy Hinton Covered Member ID Hinton Member ID Guarantor Name 04/12/2025 1 [facility] [employer] [facility] - DUAL ELIGIBLE (MEDICARE REPLACEMENT/A DVANTAGE - HMO) [id number] Nirav Highgiev [id number] Nirav Kearns 04/26/2025 1 [facility] (MEDICARE REPLACEMENT/A DVANTAGE - PPO) [id number] Nirav Lee Urmila [id number] Nirav Kearns 04/12/2025 2 [place] [facility] Nirav Kearns [id number] Nirav Kearns Notes Date Note Type Note Provider Name and Address Organization Details Recorded Time 03/09/2024 text/html OV 03/13/2021:Here to establish carePast Hx:HLDCVAMVRMening [...] restart the citalopram Guanakito Ware MD [address], [place], [address], [facility] [email or web address] 03/09/2024 11:10:10 04/08/2024 text/html OV 03/13/2021:Here to establish carePast Hx:HLDCVAMVRMening sandramaReviewed social family and surgical historyHe is here [...] SOB, no CHAN Guanakito Ware MD [address], [place], [address], [facility] [email or web address] 04/14/2024 15:53:55 07/13/2024 text/html OV 03/13/2021:Here to establish carePast Hx:HLDCVAMVRMening Thomwed social family and surgical historyHe is here [...] well today, he is here with his Guanakito Ware MD [address] [facility], [address], [place], [address], [place] [facility] 07/13/2024 16:31:15 11/30/2024 text/html OV 03/13/2021:Here to establish carePast Hx:HLDCVAMVRMening [...] or constipation, no redness, here with his Guanakito Ware MD [address], [address], [place], [address], [place] [facility] 12/03/2024 13:13:56 04/12/2025 text/html OV 03/13/2021:Here to establish carePast [...] is here with his Guanakito Ware MD [address] [place] [address] [address], [facility] [address], [place], [address], [place] [facility] 04/24/2025 15:11:37
[2025-05-02] MEDS: MECLIZINE HCL 25 MG TABLET PO (08:54)
[2025-05-02] MEDS: ONDANSETRON INJ 4 MG/2 ML VIAL IV PUSH (08:54)
--- NOTE | 2025-05-02 08:57 | ED.DIZZY ---
HPI - Dizziness General Chief Complaint: Dizziness Stated Complaint: dizzy Time Seen by Provider: 05/02/25 08:40 History of Present Illness HPI Narrative: Patient presenting here for dizziness, started last night when he got up to go to the bathroom, he got very dizzy, felt unsteady on his feet, felt like the room is spinning around him, needed help going to and from the bathroom, he went back to bed and went back to sleep but when he woke about 5, the feeling continued. Associated with some nausea, much worse when he moves his head. Has had these symptoms on and off now since he had a stroke 5 years ago, but today was the worst. Related Data Home Medications ?Medication ?Instructions ?Recorded ?Confirmed ?Last Taken ?Type alprazolam 0.5 mg tablet (Xanax) 0.5 mg PO QHS PRN anxiety 11/20/20 01/24/25 Unknown History aspirin 325 mg tablet 325 mg PO DAILY 11/20/20 01/24/25 Unknown History Held on 01/11/25. Instructions: Resume on 01/13/25. citalopram 10 mg tablet (Celexa) 10 mg PO DAILY 11/20/20 01/24/25 Unknown History atorvastatin 40 mg tablet 40 mg PO QPM 01/03/25 01/24/25 Unknown History Allergies Allergy/AdvReac Type Severity Reaction Status Date / Time No Known Allergies Allergy Verified 05/02/25 08:50 Review of Systems Review of Systems: All systems reviewed & are unremarkable except as noted in HPI and below PMFSH Surgical History Surgical History (Updated 01/21/25 @ 08:57 by Ashia Nunez CMA) Hx of bilateral inguinal hernia repair 01/11/2025 Laparoscopic bilateral inguinal hernia repair with mesh, da Arlen assisted Social History Social History (Updated 01/21/25 @ 08:58 by Ashia Nunez CMA) Smoking status: Never smoker Alcohol intake: never Substance use: never Substance use type: does not use Lack of Transportation: No Lack of Food: Never True Current Housing: I Have Housing Concerned About Future Housing: No Difficulty Paying Gas/Electric Bills: No Difficulty Paying for Meds: No Currently Unemployed: No Education: Bachelor's Degree Difficulty w/ Childcare or Family Care: No Living arrangements: with family Additional living arrangements comments: -JESSENIA Spiritual care concerns: No Exam Narrative: EXAMINATION OF ORGAN SYSTEMS/BODY AREAS: Constitutional: Vital signs per nursing GENERAL: Appears slightly uncomfortable HEAD: Normal with no signs of head trauma. EYES: EOMI, conjunctiva normal, PERRL ENT: Hearing grossly intact LUNGS: Nonlabored breathing. HEART: [Regular rate and rhythm] ABD: [Soft], [nontender to palpation] EXT: Normal range of motion SKIN: [No rashes or lesions.] NEURO: [Alert and oriented x 3. No gross focal sensory or strength deficits. No facial droop. Normal clear speech.] PSYCH: Normal affect Course Vital Signs Vital signs: Vital Signs Temperature 97.9 F 05/02/25 08:40 Pulse Rate 60 05/02/25 08:40 Respiratory Rate 12 05/02/25 08:40 Blood Pressure 151/85 H 05/02/25 08:40 Pulse Oximetry 100 05/02/25 08:40 Oxygen Delivery Room Air 05/02/25 08:40 Temperature 97.9 F 05/02/25 08:40 Pulse Rate 61 05/02/25 10:58 Respiratory Rate 16 05/02/25 10:58 Blood Pressure 129/77 05/02/25 10:58 Pulse Oximetry 96 05/02/25 10:58 Oxygen Delivery Room Air 05/02/25 08:40 MDM - Dizziness MDM Narrative Medical decision making narrative: Patient with history of prior stroke who has since had intermittent episodes of vertigo presents here with a bad episode of vertigo. On exam he does appear uncomfortable, with otherwise normal neurologic exam, does vertigo is much worse with certain positions of his head. CTA head and neck thankfully no acute abnormality. After meclizine and Zofran, patient nausea is better but he still dizzy. After dose of Valium, he now feels much better. Dizziness resolved. He was able to ambulate to and from the bathroom without issues. I did offer admission for MRI and neurologic consult, patient would really prefer to go home at this time. Daughter at bedside is 1 of our excellent ER nurses and is comfortable with patient follow-up with his neurologist.. Stable for discharge at this time with return precautions Lab Data 05/02/25 09:00 05/02/25 09:00 Labs: Lab Results 05/02/25 Range/Units 09:00 WBC 5.8 (4.5-10.0) K/mm3 RBC 5.05 (4.6-6.20) M/mm3 Hgb 14.7 (14.0-18.0) g/dL Hct 44.1 (42.0-52.0) % MCV 87.3 (80-100) fl MCH 29.1 (26-34) pg MCHC 33.3 (32-36) g/dl RDW 13.2 (11.5-14.5) % Plt Count 213 (150-375) k/mm3 MPV 10.2 (7.4-10.4) fl Immature Gran % (Auto) 0.2 (0-0.5) % Neut % (Auto) 63.7 (45.5-73.1) % Lymph % (Auto) 22.2 (18.3-44.2) % [place] % (Auto) 11.3 H (2.6-8.5) % Eos % (Auto) 1.9 (0-4.4) % Baso % (Auto) 0.7 (0.2-1.2) % Lymph # (Auto) 1.28 (0.9-3.2) K/mm3 [place] # (Auto) 0.7 H (0.1-0.6) K/mm3 Eos # (Auto) 0.1 (0-0.3) K/mm3 Baso # (Auto) 0.0 (0.0-0.1) K/mm3 Abs Immat Gran (auto) 0.01 (0.00-0.031) K/mm3 Absolute Neuts (auto) 3.7 (1.3-6.7) K/mm3 Absolute Nucleated RBC 0.000 (0.0-0.012) K/mm3 Nucleated RBC % 0.0 (0.0-0.2) % Sodium 137 (137-145) mmol/L Potassium 4.1 (3.4-5.0) mmol/L Chloride 104 (98-107) mmol/L Carbon Dioxide 25 (22-30) mmol/L Anion Gap 8 (4-12) mmol/L BUN 16 (9-20) mg/dL Creatinine 0.82 (0.7-1.3) mg/dL Estim Creat Clear Calc 89 ml/min Estimated GFR > 60 (59 - ) Glucose 102 (65-110) mg/dL Calcium 9.2 (8.4-10.2) mg/dL Total Bilirubin 1.3 (0.2-1.3) mg/dL AST 38 (17-59) U/L ALT 35 (6-50) U/L Alkaline Phosphatase 48 (38-126) U/L Total Protein 7.6 (6.3-8.2) g/dL Albumin 4.2 (3.5-5.1) g/dL Discharge Plan Discharge Clinical Impression: Vertigo Patient Disposition: Home Condition: Stable Instructions: Vertigo (ED) Additional Instructions: Follow-up with your neurologist, try the medications as prescribed, and come back to the ER for any further issues. Patient Language: South Sudanese Prescriptions: New meclizine 25 mg tablet 25 mg PO TID PRN (Reason: dizziness) Qty: 20 0RF diazepam [Valium] 2 mg tablet 2 mg PO BID PRN (Reason: dizziness or vertigo) Qty: 14 0RF ondansetron 4 mg tablet,disintegrating 4 mg PO Q8H PRN (Reason: nausea and vomiting) Qty: 10 0RF No Action aspirin 325 mg tablet 325 mg PO DAILY alprazolam [Xanax] 0.5 mg tablet 0.5 mg PO QHS PRN (Reason: anxiety) citalopram [Celexa] 10 mg tablet 10 mg PO DAILY Patient Comments: qam atorvastatin 40 mg tablet 40 mg PO QPM hydrocodone-acetaminophen 5-325 mg tablet 1 tablet PO Q4H PRN (Reason: pain) Qty: 10 0RF Follow-up/Referrals: Chaz,MD Guanakito [Primary Care Provider, Unknown]
[2025-05-02 09:05] LABS: Hematocrit 44.1 % (42.0-52.0); Hemoglobin 14.7 g/dL (14.0-18.0); Immature Granulocyte Percent A 0.2 % (0-0.5); Lymphocytes Absolute Auto 1.28 K/mm3 (0.9-3.2); Mean Corpuscular HGB Conc 33.3 g/dl (32-36); Mean Corpuscular Hemoglobin 29.1 pg (26-34); Mean Corpuscular Volume 87.3 fl (80-100); Nucleated Red Blood Cells Absolute Auto 0.000 K/mm3 (0.0-0.012); Nucleated Red Blood Cells Perc 0.0 % (0.0-0.2); Platelet Count Result 213 k/mm3 (150-375); Red Blood Count 5.05 M/mm3 (4.6-6.20); White Blood Count 5.8 K/mm3 (4.5-10.0)
[2025-05-02 09:29] LABS: Alanine Aminotransferase 35 U/L (6-50); Albumin Level 4.2 g/dL (3.5-5.1); Alkaline Phosphatase 48 U/L (38-126); Anion Gap 8 mmol/L (4-12); Aspartate Amino Transferase 38 U/L (17-59); Bilirubin,Total 1.3 mg/dL (0.2-1.3); Blood Urea Nitrogen 16 mg/dL (9-20); Calcium 9.2 mg/dL (8.4-10.2); Carbon Dioxide 25 mmol/L (22-30); Chloride 104 mmol/L (98-107); Estimated CRCL calculation 89 ml/min; Estimated Glomerular Filt Rate > 60; Glucose 102 mg/dL (65-110); Potassium 4.1 mmol/L (3.4-5.0); Sodium 137 mmol/L (137-145); Total Protein 7.6 g/dL (6.3-8.2)
--- OUTSIDE RECORDS SUMMARY | 2025-05-02 09:56 | XMS_ITS | Clinical Summary ---
Author Organization [facility] Address [address] [place] [address] Care Team Providers Care Hydraulics Engineer Name Role Phone Devin Whitaker MD Primary Care Provider Source Comments [facility],non-owned Affiliates and Associated Physician Practices is amultiple site organization consisting of ambulatory clinics and hospital sitesin [place], [place], [place] and [place]. This disclosure is being madepursuant to the Care Everywhere program and may not contain all information available regarding this patient. 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 Gender Identity Not on file Sexual Orientation Not on file Last Filed Vital Signs Vital Sign Reading Time Taken Comments Blood Pressure 114/67 07/07/2017 8:35 AM WATER SYSTEMS DESIGNER Pulse 55 07/07/2017 8:35 AM WATER SYSTEMS DESIGNER Temperature 36.4 C (97.5 F) 07/07/2017 8:35 AM WATER SYSTEMS DESIGNER Respiratory Rate - - Oxygen Saturation 100% 07/07/2017 8:35 AM WATER SYSTEMS DESIGNER Inhaled Oxygen Concentration - - Weight 101.6 kg (224 lb) 07/07/2017 8:35 AM WATER SYSTEMS DESIGNER Height 182.9 cm (6') 07/07/2017 8:35 AM WATER SYSTEMS DESIGNER Body Mass Index 30.38 07/07/2017 8:35 AM WATER SYSTEMS DESIGNER Plan of Treatment Health Maintenance Due Date [...] age to complete this topic Care Teams Hydraulics Engineer Relationship Specialty Start Date End Date Devin Whitaker MD [address] [place], [place] [id number] PCP - General 06/19/17
[2025-05-02 10:17] VITALS: BP 143/84; PULSE 61; RESP 16; O2SAT 97
[2025-05-02] MEDS: diazePAM INJ (*CRX) 10 MG/2 ML SYRINGE 2.5 MG IV PUSH (10:25)
[2025-05-02 10:58] VITALS: BP 129/77; PULSE 61; RESP 16; O2SAT 96
== END 2025-05-02 11:18 | disposition home or self-care (01) ==
PROVIDERS: Emergency Provider Emergency Medicine; PCP Internal Medicine
DX: R42 Dizziness and giddiness (principal); R00.1 Bradycardia, unspecified
CPT/HCPCS: 36415; 70496; 70498; 80053; 85025; 93005; 96374; 96375; 99284; A9270; J2405; J3360; Q9967